=== PATIENT | female | born 1945 | race American Indian/Alaskan Native ===

== ENCOUNTER 2017-03-05 18:54 | Inpatient (IN) | payer MEDICARE ==
[2017-03-05] MEDS ORDERED: BENADRYL ONE (19:13)
[2017-03-05] MEDS ORDERED: BENADRYL IV ONE ×2 (19:17→20:25)
[2017-03-05] MEDS ORDERED: DECADRON IV ONE (20:19)
[2017-03-05] MEDS ORDERED: PEPCID IV ONE (20:25)
--- NOTE | 2017-03-05 20:30 | Emergency Department Report ---
HPI - General Chief Complaint: Allergic Reaction Time Seen by Provider: 03/05/17 20:17 - HPI HPI: 71-year-old female with a past medical history of end-stage disease on dialysis Saturday, Saturday, Fridays, PE, and seizures presents to the Hospital complaining of swelling to tongue after using Biotene mouthwash. Patent states symptoms started yesterday and then worsened this afternoon. Left-sided tongue was swollen than the right. Patient also has fullness and tenderness to the submental area and voice changes. Patient received Benadryl prior to my evaluation. Patient states symptoms are unchanged. ED Past Medical Hx - Past Medical History Previous Medical History?: Yes Hx Pulmonary Embolism: Yes Hx GERD: Yes Hx Renal Disease: Yes (ESRD/dialysis M,W,F) Hx Seizures: Yes Additional medical history: neuropathy - Surgical History Past Surgical History?: Yes Additional Surgical History: hip replacement. left Vas-Cath - Medications Home Medications: Home Medications Medication Instructions Recorded Confirmed Last Taken Type Apixaban [Eliquis] 2.5 mg PO DAILY 03/05/17 03/05/17 Unknown History Colchicine [Colcrys] 0.6 mg PO DAILY 03/05/17 03/05/17 Unknown History Fluticasone [Flonase] 1 spray NS QDAY 03/05/17 03/05/17 Unknown History Gabapentin [Neurontin] 300 mg PO BID 03/05/17 03/05/17 Unknown History Ipratropium/Albuter (Nf) 2 puff IH QID 03/05/17 03/05/17 Unknown History [Combivent (Nf)] Midodrine HCl 10 mg PO DAILY 03/05/17 03/05/17 Unknown History Pantoprazole [Protonix] 40 mg PO QDAY 03/05/17 03/05/17 Unknown History Sevelamer HCl [Renagel] 800 mg PO TIDWM 03/05/17 03/05/17 Unknown History levETIRAcetam [Keppra TAB] 250 mg PO 3XW 03/05/17 03/05/17 Unknown History levETIRAcetam [Keppra TAB] 500 mg PO 4XW 03/05/17 03/05/17 Unknown History traMADol [Ultram] 50 mg PO Q6HR PRN 03/05/17 03/05/17 Unknown History ED Review of Systems ROS: Stated complaint: SWOLLEN TONGUE Other details as noted in HPI Comment: All other systems reviewed and negative Other: Constitutional: No fevers chills or weight loss Eyes: No eye pain visual changes or discharge ENT: No ear pain or throat pain Neck: Denies pain Respiratory: Denies cough wheezing Cardiovascular: Denies chest pain, palpitations, syncope GI: Denies abdominal pain, nausea, vomiting, diarrhea : Denies dysuria Musculoskeletal: Denies back pain Skin: Denies rash, lesions, erythema Neurologic: Denies headache, numbness, weakness Psychiatric: Denies suicidal ideation, hallucinations Physical Exam - Physical Exam Vital Signs: Vital Signs 03/05/17 18:57 Pulse Rate 104 H Respiratory 18 Rate Blood Pressure 150/90 O2 Sat by Pulse 96 Oximetry Physical Exam: General: No limitations, patient is alert in no acute distress Head exam: Atraumatic, normocephalic Eyes exam: Normal appearance, pupils equal reactive to light, extraocular movements intact ENT: Moist mucous membrane, patient has swelling, left greater than the right. Able to partially visualize posterior pharynx with tongue depressor. Muffled voice Neck exam: Normal inspection, full range of motion, tenderness and swelling to submental area Respiratory exam: Clear to auscultation bilateral, no wheezes, rales, crackles Cardiovascular: Normal rate and rhythm, normal heart sounds Abdomen: Soft, nondistended, and nontender, with normal bowel sounds, no rebound, or guarding Extremity: Full range of motion normal inspection no deformity Back: Normal Inspection, full range of motion, no tenderness Neurologic: Alert, oriented x3, cranial nerves intact, no motor or sensory deficit Psychiatric: normal affect, normal mood Skin: Warm, dry, intact ED Course Vital Signs 03/05/17 18:57 Pulse Rate 104 H Respiratory 18 Rate Blood Pressure 150/90 O2 Sat by Pulse 96 Oximetry - Reevaluation(s) Reevaluation #1: 03/05/17 21:37 pt recieved Benadyrl, decadron, solumdrol, pepcid - Consultations Consultation #1: 03/05/17 21:36 Dr Bourgeois (anesthesiologist) in ED to assess patient for possible difficult intubation. It decided to observe patient a while longer for improvement. Intubation set up including bladder scope and cric tray at bedside ED Medical Decision Making - Lab Data Result diagrams: 03/05/17 20:53 03/05/17 20:53 Lab Results 03/05/17 03/05/17 Range/Units 20:53 20:53 WBC 10.0 (4.5-11.0) K/mm3 RBC 3.86 (3.65-5.03) M/mm3 Hgb 11.8 (10.1-14.3) gm/dl Hct 37.0 (30.3-42.9) % MCV 96 (79-97) fl MCH 31 (28-32) pg MCHC 32 (30-34) % RDW 14.6 (13.2-15.2) % Plt Count 254 (140-440) K/mm3 Lymph % (Auto) 19.8 (13.4-35.0) % [place] % (Auto) 7.7 H (0.0-7.3) % Eos % (Auto) 0.1 (0.0-4.3) % Baso % (Auto) 0.3 (0.0-1.8) % Lymph # 2.0 (1.2-5.4) K/mm3 [place] # 0.8 (0.0-0.8) K/mm3 Eos # 0.0 (0.0-0.4) K/mm3 Baso # 0.0 (0.0-0.1) K/mm3 Seg Neutrophils % 72.1 H (40.0-70.0) % Seg Neutrophils # 7.2 (1.8-7.7) K/mm3 Sodium 140 (137-145) mmol/L Potassium 5.1 H (3.6-5.0) mmol/L Chloride 96.3 L (98-107) mmol/L Carbon Dioxide 21 L (22-30) mmol/L Anion Gap 28 mmol/L BUN 45 H (7-17) mg/dL Creatinine 6.1 H (0.7-1.2) mg/dL Estimated GFR 8 ml/min BUN/Creatinine Ratio 7 % Glucose 167 H (65-100) mg/dL Calcium 8.6 (8.4-10.2) mg/dL - Medical Decision Making Plan to admit patient to the ICU for further observation. If symptoms worsen intubation and will be performed with the assistance of anesthesia - Differential Diagnosis angioedema, allergic reaction Critical Care Time: No Critical care attestation.: If time is entered above; I have spent that time in minutes in the direct care of this critically ill patient, excluding procedure time. ED Disposition Clinical Impression: Allergic reaction, Tongue swelling Disposition: OP ADMIT IP TO THIS HOSP Is pt being admited?: Yes Condition: Stable Time of Disposition: 21:39 (Dr Frye/hosp)
[2017-03-05 21:15] LABS: Basophils % (Auto) 0.3 % (0.0-1.8); Eosinophils % (Auto) 0.1 % (0.0-4.3); Hemoglobin 11.8 gm/dl (10.1-14.3); Mean Corpuscular HGB Conc 32 % (30-34); Mean Corpuscular Hemoglobin 31 pg (28-32); Mean Corpuscular Volume 96 fl (79-97); Platelet Count 254 K/mm3 (140-440); Red Blood Count 3.86 M/mm3 (3.65-5.03); Red Cell Distribution Width 14.6 % (13.2-15.2)
[2017-03-05 21:26] LABS: Calcium 8.6 mg/dL (8.4-10.2); Chloride 96.3 mmol/L (98-107); Potassium 5.1 mmol/L (3.6-5.0)
--- NOTE | 2017-03-05 21:56 | Progress Note ---
Subjective Date of service: 03/05/17 Interval history: Ms Elias is a 71 year old who has had neck swelling and weak voice for over 24 hours. She reports some worsening this afternoon. She has a history of ESRD and is dialyzed MWF. Her potassium is 5.1. Her home medication list is presently unknown. She has received benadryl and steroids since admission. On physical exam the patient is awake and alert. She is in mild distress but is able to talk legibly. There is moderate swelling/fullness at the base of the neck and tenderness to palpation. Her BP is 150/90, R 18, P104 and SaO2 96%. Do not feel that patient is de-compensating at present and she deserves a little additional time for steroids to work. If this changes will reconsider intubation. Objective - Constitutional Vitals: Vital Signs - 12hr 03/05/17 18:57 Pulse Rate 104 H Respiratory 18 Rate Blood Pressure 150/90 O2 Sat by Pulse 96 Oximetry - Labs CBC & Chem 7: 03/05/17 20:53 03/05/17 20:53 Labs: Abnormal lab results 03/05/17 03/05/17 Range/Units 20:53 20:53 [place] % (Auto) 7.7 H (0.0-7.3) % Seg Neutrophils % 72.1 H (40.0-70.0) % Potassium 5.1 H (3.6-5.0) mmol/L Chloride 96.3 L (98-107) mmol/L Carbon Dioxide 21 L (22-30) mmol/L BUN 45 H (7-17) mg/dL Creatinine 6.1 H (0.7-1.2) mg/dL Glucose 167 H (65-100) mg/dL
[2017-03-05] MEDS ORDERED: APRESOLINE IV PRN (22:40)
--- NOTE | 2017-03-05 22:42 | History and Physical Report ---
History of Present Illness Date of examination: 03/05/17 History of present illness: 71-year-old lady with a history of pulmonary emboli, GERD, end-stage renal disease on dialysis, seizure, diabetes was brought to the emergency room because she developed swelling in her tongue and shortness of breath. Daughter at bedside state that yesterday she complained of pain on the left side of her neck, patient is unable to elaborate. No new medicine, food Review Of Systems: Constitutional: no weight loss Ears, eyes, nose, mouth and throat: no nasal congestion, no nasal discharge, no sinus pressure, blurry vision, diplopia Neck: No neck pain or rigidity. Cardiovascular: No chest pain, palpitations Respiratory: No shortness of breath, cough Gastrointestinal: No abdominal pain, hematochezia Genitourinary : no dysuria, frequency , hematuria Musculoskeletal: no muscle ache Integumentary: no rash, no pruritis Neurological: no parathesias, focal weakness Endocrine: no cold or heat intolerance, no polyuria or polydipsia Hematologic/Lymphatic: no easy bruising, no easy bleeding, no gland swelling Allergic/Immunologic: no urticaria, no angioedema. PAST MEDICAL HISTORY:pulmonary emboli, GERD, end-stage renal disease on dialysis , seizure, diabetes PAST SURGICAL HISTORY: AV fistula, hip replacement, bilateral hernia, FAMILY HISTORY: Hypertension SOCIAL HISTORY: Denies alcohol, tobacco, drugs Medications and Allergies Allergies Allergy/AdvReac Type Severity Reaction Status Date / Time sulfacetamide Allergy Anaphylaxis Verified 03/06/17 00:22 [From Sulfamide] Home Medications Medication Instructions Recorded Confirmed Last Taken Type Apixaban [Eliquis] 2.5 mg PO DAILY 03/05/17 03/05/17 Unknown History Colchicine [Colcrys] 0.6 mg PO DAILY 03/05/17 03/05/17 Unknown History Fluticasone [Flonase] 1 spray NS QDAY 03/05/17 03/05/17 Unknown History Gabapentin [Neurontin] 300 mg PO BID 03/05/17 03/05/17 Unknown History Ipratropium/Albuter (Nf) 2 puff IH QID 03/05/17 03/05/17 Unknown History [Combivent Inhaler] Midodrine HCl 10 mg PO DAILY 03/05/17 03/05/17 Unknown History Pantoprazole [Protonix TAB] 40 mg PO QDAY 03/05/17 03/05/17 Unknown History Sevelamer HCl [Renagel] 800 mg PO TIDWM 03/05/17 03/05/17 Unknown History levETIRAcetam [Keppra TAB] 250 mg PO 3XW 03/05/17 03/05/17 Unknown History levETIRAcetam [Keppra TAB] 500 mg PO 4XW 03/05/17 03/05/17 Unknown History traMADol [Ultram 50 MG tab] 50 mg PO Q6HR PRN 03/05/17 03/05/17 Unknown History Famotidine [Pepcid] 20 mg PO DAILY tablet 03/08/17 Unknown Rx Famotidine [Pepcid] 20 mg PO DAILY 30 Days tablet 03/08/17 Unknown Rx Prednisone [predniSONE 10 mg 10 mg PO .TAPER #1 tab.ds.pk 03/08/17 Unknown Rx (6-Day Pack, 21 Tabs)] levETIRAcetam [Keppra TAB] 500 mg PO Sa tablet 03/08/17 Unknown Rx levETIRAcetam [Keppra TAB] 500 mg PO [place] tablet 03/08/17 Unknown Rx oxyCODONE [Roxicodone TAB] 10 mg PO Q6H PRN #14 tablet 03/08/17 Unknown Rx Active Meds: Active Medications Hydralazine HCl (Apresoline) 5 mg IV Q6HR PRN PRN Reason: Hypertension Exam - Physical Exam Narrative exam: Gen. appearance: Patient lying in bed in no acute distress, able to speak in full sentences HEENT: Normocephalic/atraumatic, pupils equal round reactive to light, extra occular movement intact, no scleral icterus, no JVD or thyromegaly or nodule, neck is supple, mucous membrane moist, no erythema or exudate Heart: S1-S2, regular rate and rhythm Lungs: Clear to auscultation bilateral breathing comfortable Abdomen: Positive bowel sounds, nontender, nondistended, no organomegaly Extremities: No edema, cyanosis, clubbing Neuro:: Oriented 3 , cranial nerves II-12 intact, speech, motor intact Skin: No rash, nodules, warm dry - Constitutional Vitals: Temp Pulse Resp BP Pulse Ox 98.9 F 104 H 18 150/90 96 03/05/17 21:58 03/05/17 18:57 03/05/17 18:57 03/05/17 18:57 03/05/17 18:57 Results - Labs CBC & Chem 7: 03/07/17 05:17 03/08/17 04:35 Labs: Abnormal lab results 03/05/17 03/05/17 Range/Units 20:53 20:53 [place] % (Auto) 7.7 H (0.0-7.3) % Seg Neutrophils % 72.1 H (40.0-70.0) % Potassium 5.1 H (3.6-5.0) mmol/L Chloride 96.3 L (98-107) mmol/L Carbon Dioxide 21 L (22-30) mmol/L BUN 45 H (7-17) mg/dL Creatinine 6.1 H (0.7-1.2) mg/dL Glucose 167 H (65-100) mg/dL Assessment and Plan Assessment Angioedema, unclear etiology left neck pain End-stage renal disease needing dialysis Hypertension Diabetes type 2 Pulmonary emboli Seizure Plan Admit to medicine Continue high-dose steroids, Pepcid, Benadryl Admitting CAT scan of the neck Consult renal for dialysis Check fingersticks and initiate insulin sliding scale IV hydralazine for blood pressure control DVT prophylaxis
--- NOTE | 2017-03-05 23:41 | Cat Scan Report ---
FINAL REPORT PROCEDURE: CT NECK WO CON TECHNIQUE: Computerized tomography of the soft tissue neck was performed without contrast material. This study is performed without intravascular contrast material and its sensitivity for pathology, including neoplasms, inflammation, abscess, free fluid, thrombosis, and arterial dissection, is reduced compared with a contrast enhanced study. HISTORY: left neck pain, angioedema COMPARISON: No prior studies are available for comparison. FINDINGS: The tongue appear swollen with mild narrowing of the oropharynx. Uvula is of normal thickness. Mild degree soft tissue fullness is noted in the left submandibular region., Nasal cavity and bilateral paranasal sinuses are unremarkable. Epiglottis is of normal thickness. Laryngeal structures are unremarkable. Atelectatic changes are noted in the visualized superior segment left lower lobe. Bilateral parotid glands demonstrate normal size and density. There is no lymphadenopathy. Bilateral orbits are unremarkable. There is increased density of the bony structures. IMPRESSION: Tongue appears swollen. Soft tissue fullness in the left submandibular region may represent an underlying inflammatory process. A post contrast study is recommended for further evaluation. Increased density of the bony skeleton most likely represents a etiologies such as renal osteodystrophy.
[2017-03-06] MEDS ORDERED: ZOFRAN IV PRN (00:23)
[2017-03-06] MEDS ORDERED: ZOSYN/NS 2.25 GM/50ML 2.25 GM/50 ML BAG IV ONE (01:30)
--- NOTE | 2017-03-06 08:47 | Progress Note ---
<ARSEN SAENZ - Last Filed: 03/06/17 14:51> Assessment and Plan Assessment and plan: Patient is a 71-year-old with past medical history of pulmonary emboli, GERD, end-stage renal disease on dialysis, seizure, diabetes was brought to the emergency room because she developed swelling in her tongue and shortness of breath. Angioedema, Etiology unknown Ct of the neck showed swollen tongue Oxygen when necessary; protect airway Continue steroid and Benadryl We will obtain CT of the neck with contrast if its okay with nephrology. Left neck pain Secondary to angioedema End-stage renal disease needing dialysis Nephrology consulted Hyperkalemia Patient will have dialysis that will correct it. Hypertension Continue on home antihypertensive medication Closer to monitor blood pressure Diabetes mellitus Accu-Chek before meals and at bedtime Sliding scale insulin/NovoLog ADA consistent carbohydrate diet Hx Pulmonary emboli Continue on Eliquis Seizure Resume anticonvulsant DVT prophylaxis Heparin History Interval history: Patient complains of neck pain. She denies shortness of breath. Labs and nursing notes reviewed. Hospitalist Physical - Constitutional Vitals: Temp Pulse Resp BP Pulse Ox 98.6 F 95 H 22 179/79 94 03/06/17 04:54 03/06/17 04:54 03/06/17 04:54 03/06/17 04:54 03/06/17 04:54 General appearance: Present: no acute distress - EENT Eyes: Present: PERRL ENT: hearing intact - Neck Neck: Present: supple - Respiratory Respiratory effort: normal Respiratory: bilateral: CTA - Cardiovascular Rhythm: regular Heart Sounds: Present: S1 & S2 - Abdominal General gastrointestinal: soft, non-tender - Integumentary Integumentary: Present: clear, warm, dry - Psychiatric Psychiatric: appropriate mood/affect - Neurologic Neurologic: moves all extremities - Allied Health Allied health notes reviewed: nursing Results - Labs CBC & Chem 7: 03/05/17 20:53 03/05/17 20:53 Labs: Laboratory Last Values WBC 10.0 K/mm3 (4.5-11.0) 03/05/17 20:53 RBC 3.86 M/mm3 (3.65-5.03) 03/05/17 20:53 Hgb 11.8 gm/dl (10.1-14.3) 03/05/17 20:53 Hct 37.0 % (30.3-42.9) 03/05/17 20:53 MCV 96 fl (79-97) 03/05/17 20:53 MCH 31 pg (28-32) 03/05/17 20:53 MCHC 32 % (30-34) 03/05/17 20:53 RDW 14.6 % (13.2-15.2) 03/05/17 20:53 Plt Count 254 K/mm3 (140-440) 03/05/17 20:53 Lymph % (Auto) 19.8 % (13.4-35.0) 03/05/17 20:53 [place] % (Auto) 7.7 % (0.0-7.3) H 03/05/17 20:53 Eos % (Auto) 0.1 % (0.0-4.3) 03/05/17 20:53 Baso % (Auto) 0.3 % (0.0-1.8) 03/05/17 20:53 Lymph # 2.0 K/mm3 (1.2-5.4) 03/05/17 20:53 [place] # 0.8 K/mm3 (0.0-0.8) 03/05/17 20:53 Eos # 0.0 K/mm3 (0.0-0.4) 03/05/17 20:53 Baso # 0.0 K/mm3 (0.0-0.1) 03/05/17 20:53 Seg Neutrophils % 72.1 % (40.0-70.0) H 03/05/17 20:53 Seg Neutrophils # 7.2 K/mm3 (1.8-7.7) 03/05/17 20:53 Sodium 140 mmol/L (137-145) 03/05/17 20:53 Potassium 5.1 mmol/L (3.6-5.0) H 03/05/17 20:53 Chloride 96.3 mmol/L (98-107) L 03/05/17 20:53 Carbon Dioxide 21 mmol/L (22-30) L 03/05/17 20:53 Anion Gap 28 mmol/L 03/05/17 20:53 BUN 45 mg/dL (7-17) H 03/05/17 20:53 Creatinine 6.1 mg/dL (0.7-1.2) H 03/05/17 20:53 Estimated GFR 8 ml/min 03/05/17 20:53 BUN/Creatinine Ratio 7 % 03/05/17 20:53 Glucose 167 mg/dL (65-100) H 03/05/17 20:53 Calcium 8.6 mg/dL (8.4-10.2) 03/05/17 20:53 <REGAN CARRION M - Last Filed: 03/06/17 16:17> Assessment and Plan Assessment and plan: I saw and evaluated the patient. I agree with the findings and the plan of care as documented in the Nurse Practitioner's progress note. Hospitalist Physical - Constitutional Vitals: Temp Pulse Resp BP Pulse Ox 98.5 F 92 H 20 171/78 95 03/06/17 09:25 03/06/17 11:45 03/06/17 09:25 03/06/17 09:25 03/06/17 09:50 Results - Labs CBC & Chem 7: 03/05/17 20:53 03/05/17 20:53 Labs: Laboratory Last Values WBC 10.0 K/mm3 (4.5-11.0) 03/05/17 20:53 RBC 3.86 M/mm3 (3.65-5.03) 03/05/17 20:53 Hgb 11.8 gm/dl (10.1-14.3) 03/05/17 20:53 Hct 37.0 % (30.3-42.9) 03/05/17 20:53 MCV 96 fl (79-97) 03/05/17 20:53 MCH 31 pg (28-32) 03/05/17 20:53 MCHC 32 % (30-34) 03/05/17 20:53 RDW 14.6 % (13.2-15.2) 03/05/17 20:53 Plt Count 254 K/mm3 (140-440) 03/05/17 20:53 Lymph % (Auto) 19.8 % (13.4-35.0) 03/05/17 20:53 [place] % (Auto) 7.7 % (0.0-7.3) H 03/05/17 20:53 Eos % (Auto) 0.1 % (0.0-4.3) 03/05/17 20:53 Baso % (Auto) 0.3 % (0.0-1.8) 03/05/17 20:53 Lymph # 2.0 K/mm3 (1.2-5.4) 03/05/17 20:53 [place] # 0.8 K/mm3 (0.0-0.8) 03/05/17 20:53 Eos # 0.0 K/mm3 (0.0-0.4) 03/05/17 20:53 Baso # 0.0 K/mm3 (0.0-0.1) 03/05/17 20:53 Seg Neutrophils % 72.1 % (40.0-70.0) H 03/05/17 20:53 Seg Neutrophils # 7.2 K/mm3 (1.8-7.7) 03/05/17 20:53 Sodium 140 mmol/L (137-145) 03/05/17 20:53 Potassium 5.1 mmol/L (3.6-5.0) H 03/05/17 20:53 Chloride 96.3 mmol/L (98-107) L 03/05/17 20:53 Carbon Dioxide 21 mmol/L (22-30) L 03/05/17 20:53 Anion Gap 28 mmol/L 03/05/17 20:53 BUN 45 mg/dL (7-17) H 03/05/17 20:53 Creatinine 6.1 mg/dL (0.7-1.2) H 03/05/17 20:53 Estimated GFR 8 ml/min 03/05/17 20:53 BUN/Creatinine Ratio 7 % 03/05/17 20:53 Glucose 167 mg/dL (65-100) H 03/05/17 20:53 Calcium 8.6 mg/dL (8.4-10.2) 03/05/17 20:53 TSH 0.432 mlU/mL (0.270-4.200) 03/06/17 09:47
[2017-03-06] MEDS: COLCRYS PO SCH (09:38)
[2017-03-06] MEDS: KEPPRA PO SCH (09:38)
[2017-03-06] MEDS: ELIQUIS PO SCH (09:39)
[2017-03-06] MEDS: PEPCID IV SCH (09:39)
[2017-03-06] MEDS: TYLENOL PO PRN (09:46)
[2017-03-06] MEDS ORDERED: PROAMATINE PO SCH (10:00)
[2017-03-06] MEDS ORDERED: LOVENOX SUB-Q SCH (10:00)
[2017-03-06] MEDS: ROXICODONE PO PRN (16:32)
[2017-03-07 06:13] LABS: BUN/Creatinine Ratio 11; Blood Urea Nitrogen 86 mg/dL (7-17); Calcium 7.6 mg/dL (8.4-10.2); Carbon Dioxide 18 mmol/L (22-30); Glucose 333 mg/dL (65-100); Sodium 134 mmol/L (137-145)
[2017-03-07 06:18] LABS: Anion Gap 31 mmol/L; Potassium TNR mmol/L (3.6-5.0)
[2017-03-07] MEDS: ROXICODONE PO PRN ×3 (06:30→23:42)
[2017-03-07 06:32] LABS: Hematocrit 33.3 % (30.3-42.9); Hemoglobin 10.9 gm/dl (10.1-14.3); Mean Corpuscular HGB Conc 33 % (30-34); Mean Corpuscular Hemoglobin 32 pg (28-32); Mean Corpuscular Volume 97 fl (79-97); Red Blood Count 3.43 M/mm3 (3.65-5.03); Red Cell Distribution Width 14.7 % (13.2-15.2); White Blood Count 10.5 K/mm3 (4.5-11.0)
[2017-03-07 06:34] LABS: Platelet Count 192 K/mm3 (140-440)
[2017-03-07 06:37] LABS: Eosinophils % (Auto) 0.1 % (0.0-4.3)
[2017-03-07 06:38] LABS: Basophils % (Auto) 0.9 % (0.0-1.8); Diff Status Complete
[2017-03-07] MEDS: BENADRYL IV PRN ×2 (08:46→16:26)
--- NOTE | 2017-03-07 08:52 | Progress Note ---
<ARSEN SAENZ - Last Filed: 03/07/17 14:55> Assessment and Plan Assessment and plan: Patient is a 71-year-old with past medical history of pulmonary emboli, GERD, end-stage renal disease on dialysis, seizure, diabetes was brought to the emergency room because she developed swelling in her tongue and shortness of breath. Sialolithiasis submandibular CT of the neck with contrast showed sialolithiasis submandibular Surgical consult Angioedema, Secondary to sialolithiasis submandibular CT of the neck with contrast showed sialolithiasis submandibular Ct of the neck showed swollen tongue Oxygen when necessary; protect airway Continue steroid and Benadryl Left neck pain Secondary to sialolithiasis submandibular End-stage renal disease needing dialysis Nephrology consulted Hyperkalemia Patient will have dialysis that will correct it. Hypertension Continue on home antihypertensive medication Closer to monitor blood pressure Diabetes mellitus Accu-Chek before meals and at bedtime Sliding scale insulin/NovoLog ADA consistent carbohydrate diet Hx Pulmonary emboli Continue on Eliquis Seizure Resume anticonvulsant DVT prophylaxis Heparin History Interval history: Patient complains neck pain. Labs and nursing notes reviewed. Hospitalist Physical - Constitutional Vitals: Temp Pulse Resp BP Pulse Ox 98.8 F 86 20 151/68 98 03/07/17 05:23 03/07/17 08:31 03/07/17 05:23 03/07/17 05:23 03/07/17 05:23 General appearance: Present: no acute distress - EENT Eyes: Present: PERRL ENT: hearing intact - Neck Neck: Present: supple - Respiratory Respiratory effort: normal Respiratory: bilateral: CTA - Cardiovascular Rhythm: regular Heart Sounds: Present: S1 & S2 - Abdominal General gastrointestinal: soft, non-tender - Integumentary Integumentary: Present: clear, warm, dry - Psychiatric Psychiatric: appropriate mood/affect - Allied Health Allied health notes reviewed: nursing Results - Labs CBC & Chem 7: 03/07/17 05:17 03/07/17 05:17 Labs: Laboratory Last Values WBC 10.5 K/mm3 (4.5-11.0) 03/07/17 05:17 RBC 3.43 M/mm3 (3.65-5.03) L 03/07/17 05:17 Hgb 10.9 gm/dl (10.1-14.3) 03/07/17 05:17 Hct 33.3 % (30.3-42.9) 03/07/17 05:17 MCV 97 fl (79-97) 03/07/17 05:17 MCH 32 pg (28-32) 03/07/17 05:17 MCHC 33 % (30-34) 03/07/17 05:17 RDW 14.7 % (13.2-15.2) 03/07/17 05:17 Plt Count 192 K/mm3 (140-440) 03/07/17 05:17 Lymph % (Auto) 9.7 % (13.4-35.0) L 03/07/17 05:17 [place] % (Auto) 3.0 % (0.0-7.3) 03/07/17 05:17 Eos % (Auto) 0.1 % (0.0-4.3) 03/07/17 05:17 Baso % (Auto) 0.9 % (0.0-1.8) 03/07/17 05:17 Lymph # 1.0 K/mm3 (1.2-5.4) L 03/07/17 05:17 [place] # 0.3 K/mm3 (0.0-0.8) 03/07/17 05:17 Eos # 0.0 K/mm3 (0.0-0.4) 03/07/17 05:17 Baso # 0.1 K/mm3 (0.0-0.1) 03/07/17 05:17 Add Manual Diff Complete 03/07/17 05:17 Seg Neutrophils % 86.3 % (40.0-70.0) H 03/07/17 05:17 Seg Neutrophils # 9.0 K/mm3 (1.8-7.7) H 03/07/17 05:17 Sodium 134 mmol/L (137-145) L 03/07/17 05:17 Potassium TNR 03/07/17 05:17 Chloride 93.0 mmol/L (98-107) L 03/07/17 05:17 Carbon Dioxide 18 mmol/L (22-30) L 03/07/17 05:17 Anion Gap 31 mmol/L 03/07/17 05:17 BUN 86 mg/dL (7-17) H 03/07/17 05:17 Creatinine 8.0 mg/dL (0.7-1.2) H 03/07/17 05:17 Estimated GFR 6 ml/min 03/07/17 05:17 BUN/Creatinine Ratio 11 % 03/07/17 05:17 Glucose 333 mg/dL (65-100) H 03/07/17 05:17 Calcium 7.6 mg/dL (8.4-10.2) L 03/07/17 05:17 TSH 0.432 mlU/mL (0.270-4.200) 03/06/17 09:47 <REGAN CARRION M - Last Filed: 03/07/17 17:29> Assessment and Plan Assessment and plan: I saw and evaluated the patient. I agree with the findings and the plan of care as documented in the Nurse Practitioner's progress note, with the following corrections and additions. patient is not septic and after surgery evaluation patient can be seen by ENT as an O/P. Hospitalist Physical - Constitutional Vitals: Temp Pulse Resp BP Pulse Ox 98.3 F 88 16 165/84 98 03/07/17 15:26 03/07/17 15:26 03/07/17 15:26 03/07/17 15:26 03/07/17 09:11 Results - Labs CBC & Chem 7: 03/07/17 05:17 03/07/17 05:17 Labs: Laboratory Last Values WBC 10.5 K/mm3 (4.5-11.0) 03/07/17 05:17 RBC 3.43 M/mm3 (3.65-5.03) L 03/07/17 05:17 Hgb 10.9 gm/dl (10.1-14.3) 03/07/17 05:17 Hct 33.3 % (30.3-42.9) 03/07/17 05:17 MCV 97 fl (79-97) 03/07/17 05:17 MCH 32 pg (28-32) 03/07/17 05:17 MCHC 33 % (30-34) 03/07/17 05:17 RDW 14.7 % (13.2-15.2) 03/07/17 05:17 Plt Count 192 K/mm3 (140-440) 03/07/17 05:17 Lymph % (Auto) 9.7 % (13.4-35.0) L 03/07/17 05:17 [place] % (Auto) 3.0 % (0.0-7.3) 03/07/17 05:17 Eos % (Auto) 0.1 % (0.0-4.3) 03/07/17 05:17 Baso % (Auto) 0.9 % (0.0-1.8) 03/07/17 05:17 Lymph # 1.0 K/mm3 (1.2-5.4) L 03/07/17 05:17 [place] # 0.3 K/mm3 (0.0-0.8) 03/07/17 05:17 Eos # 0.0 K/mm3 (0.0-0.4) 03/07/17 05:17 Baso # 0.1 K/mm3 (0.0-0.1) 03/07/17 05:17 Add Manual Diff Complete 03/07/17 05:17 Seg Neutrophils % 86.3 % (40.0-70.0) H 03/07/17 05:17 Seg Neutrophils # 9.0 K/mm3 (1.8-7.7) H 03/07/17 05:17 Sodium 134 mmol/L (137-145) L 03/07/17 05:17 Potassium TNR 03/07/17 05:17 Chloride 93.0 mmol/L (98-107) L 03/07/17 05:17 Carbon Dioxide 18 mmol/L (22-30) L 03/07/17 05:17 Anion Gap 31 mmol/L 03/07/17 05:17 BUN 86 mg/dL (7-17) H 03/07/17 05:17 Creatinine 8.0 mg/dL (0.7-1.2) H 03/07/17 05:17 Estimated GFR 6 ml/min 03/07/17 05:17 BUN/Creatinine Ratio 11 % 03/07/17 05:17 Glucose 333 mg/dL (65-100) H 03/07/17 05:17 Calcium 7.6 mg/dL (8.4-10.2) L 03/07/17 05:17 TSH 0.432 mlU/mL (0.270-4.200) 03/06/17 09:47
[2017-03-07] MEDS: COLCRYS PO SCH (09:03)
[2017-03-07] MEDS: PEPCID PO SCH (09:03)
[2017-03-07] MEDS: ELIQUIS PO SCH (09:03)
[2017-03-07] MEDS: KEPPRA PO SCH (09:03)
[2017-03-07] MEDS: PEPCID IV SCH (09:04)
--- NOTE | 2017-03-07 09:10 | Consultation ---
History of Present Illness - Reason for Consult Consult date: 03/07/17 end stage renal disease, hyperkalemia - History of Present Illness The patient is a 71-year-old AAF with history significant for Pulmonary emboli, GERD, ESRD on hemodialysis, Seizure DO, Type 2 diabetes, Gout who was brought to the emergency room for further evaluation of swelling of her tongue and shortness of breath. Patient is a poor historian and unable to provide good history. Imaging studies showed swollen tongue and soft tissue fullness of the submandibular region. Currently her symptoms are better. She gets hemodialysis at [facility] on MWFs and followed by . She was last dialyzed on 03/04/2017. K was 5.1 on admission. Plan to do hemodialysis today. Past History Past Medical History: anemia, diabetes, dialysis, ESRD, hypertension Medications and Allergies Allergies Allergy/AdvReac Type Severity Reaction Status Date / Time sulfacetamide Allergy Anaphylaxis Verified 03/06/17 00:22 [From Sulfamide] Home Medications Medication Instructions Recorded Confirmed Last Taken Type Apixaban [Eliquis] 2.5 mg PO DAILY 03/05/17 03/05/17 Unknown History Colchicine [Colcrys] 0.6 mg PO DAILY 03/05/17 03/05/17 Unknown History Fluticasone [Flonase] 1 spray NS QDAY 03/05/17 03/05/17 Unknown History Gabapentin [Neurontin] 300 mg PO BID 03/05/17 03/05/17 Unknown History Ipratropium/Albuter (Nf) 2 puff IH QID 03/05/17 03/05/17 Unknown History [Combivent (Nf)] Midodrine HCl 10 mg PO DAILY 03/05/17 03/05/17 Unknown History Pantoprazole [Protonix] 40 mg PO QDAY 03/05/17 03/05/17 Unknown History Sevelamer HCl [Renagel] 800 mg PO TIDWM 03/05/17 03/05/17 Unknown History levETIRAcetam [Keppra TAB] 250 mg PO 3XW 03/05/17 03/05/17 Unknown History levETIRAcetam [Keppra TAB] 500 mg PO 4XW 03/05/17 03/05/17 Unknown History traMADol [Ultram] 50 mg PO Q6HR PRN 03/05/17 03/05/17 Unknown History Active Meds: Active Medications Acetaminophen (Tylenol) 650 mg PO Q4H PRN PRN Reason: Pain MILD(1-3)/Fever >100.5/SU Last Admin: 03/06/17 09:46 Dose: 650 mg Apixaban (Eliquis) 2.5 mg PO DAILY [facility] PRN Reason: Protocol Last Admin: 03/07/17 09:03 Dose: 2.5 mg Colchicine (Colcrys) 0.6 mg PO DAILY [facility] Last Admin: 03/07/17 09:03 Dose: 0.6 mg Diphenhydramine HCl (Benadryl) 25 mg IV Q6H PRN PRN Reason: Itching Last Admin: 03/07/17 08:46 Dose: 25 mg Famotidine (Pepcid) 20 mg IV QAM [facility] Last Admin: 03/07/17 09:04 Dose: 20 mg Hydralazine HCl (Apresoline) 5 mg IV Q6H PRN PRN Reason: Hypertension Levetiracetam (Keppra) 500 mg PO TuTh [facility] Last Admin: 03/07/17 09:03 Dose: 500 mg Levetiracetam (Keppra) 250 mg PO MoWeFr [facility] Last Admin: 03/06/17 09:38 Dose: 250 mg Levetiracetam (Keppra) 500 mg PO [place]iz[place] RITESH Levetiracetam (Keppra) 500 mg PO Sa [facility] Methylprednisolone Sodium Succinate (Solu-Medrol) 125 mg IV Q6HR [facility] Last Admin: 03/07/17 05:15 Dose: 125 mg Ondansetron HCl (Zofran) 4 mg IV Q8H PRN PRN Reason: N/V unrelieved by Regjusten Last Admin: 03/06/17 10:08 Dose: 4 mg Oxycodone HCl (Roxicodone) 5 mg PO Q6H PRN PRN Reason: Pain, Moderate (4-6) Last Admin: 03/07/17 06:30 Dose: 5 mg Review of Systems ROS unobtainable: due to mental status Exam - Vital Signs Vital signs: Vital Signs Pulse Resp BP Pulse Ox 104 H 18 150/90 96 03/05/17 18:57 03/05/17 18:57 03/05/17 18:57 03/05/17 18:57 - General Appearance General appearance: well-developed, well-nourished, appears stated age, other ( no distress, left IJ tunnel catheter) EENT: ATNC, PERRL, hearing intact, vision intact Neck: Present: neck supple, trachea midline Respiratory: Clear to Ascultation Heart: regular, S1S2, no murmurs Gastrointestinal: Present: normoactive bowel sounds. Absent: tenderness, distended Integumentary: no rash, warm and dry Neurologic: no asterixis, disoriented, other (able to move extremities) Musculoskeletal: Present: other (no edema) Psychiatric: mood/affect appropriate, cooperative Results - Lab Results 03/07/17 05:17 03/07/17 05:17 Most recent lab results Calcium 7.6 mg/dL (8.4-10.2) L 03/07/17 05:17 Assessment and Plan 1. Hyperkalemia: Hemodialysis today. 2. ESRD: Continue hemodialysis three times a week. 3. Anemia: Monitor and Epogen if needed. 4. Tongue swelling: ?Angioedema.
[2017-03-07] MEDS ORDERED: NACL 0.9% 100 ML IV PRN ×2 (09:23→12:34)
--- NOTE | 2017-03-07 11:55 | Cat Scan Report ---
CT NECK WITH CONTRAST: HISTORY: Neck pain, tongue swelling. TECHNIQUE: Helical CT following IV contrast. Sagittal and coronal reformatted images. FINDINGS: Compared to the noncontrast CT neck performed 03/05/17. There may be mild swelling of the tongue but no evidence for mass, inflammation or abnormal enhancement. The vallecula, epiglottis, laryngeal vestibule and puriform sinuses are within normal limits. Visualized nasopharyngeal structures and sinuses are unremarkable. The bony structures are intact although mildly sclerotic suggesting renal osteodystrophy. No fracture or bony destruction. Poor dentition is noted. There is a large ovoid well-defined calcification at the base of the tongue on the left side measuring 10 x 12 x 16 mm. This appears to be within a mildly dilated left submandibular duct. The salivary glands are symmetric and within normal limits otherwise. The vascular structures are patent. The thyroid gland is normal size and contains a few small hypodense nodules measuring less than 5 mm. IMPRESSION: Sialolithiasis. There is a large stone obstructing the left submandibular duct.
[2017-03-07] MEDS ORDERED: HEPARIN IV PRN (12:34)
[2017-03-08 05:51] LABS: Calcium 7.9 mg/dL (8.4-10.2); Chloride 94.5 mmol/L (98-107); Potassium 5.4 mmol/L (3.6-5.0)
[2017-03-08] MEDS ORDERED: NACL 0.9% 100 ML IV PRN (08:00)
--- NOTE | 2017-03-08 08:00 | Progress Note ---
Assessment and Plan 1. Hyperkalemia: Patient was last dialyzed yesterday. Hemodialysis today. 2. ESRD: Continue hemodialysis three times a week. 3. Anemia: Monitor and Epogen if needed. 4. Tongue swelling. Subjective Date of service: 03/08/17 Interval history: Patient was seen and examined at the bedside. Objective - Vital Signs Vital signs: Vital Signs - 12hr 03/07/17 03/07/17 03/08/17 22:00 23:40 03:46 Temperature 98.8 F 97.8 F Pulse Rate 82 77 74 Respiratory 18 18 Rate Blood Pressure 164/72 148/65 O2 Sat by Pulse 98 93 98 Oximetry - General Appearance General appearance: well-developed, well-nourished, appears stated age, other ( no distress, left IJ tunnel catheter) EENT: ATNC, PERRL, hearing intact Neck: supple Respiratory: Present: Clear to Ascultation Cardiology: regular, S1S2, no murmurs Gastrointestinal: normoactive bowel sounds, no tenderness, no distended Integumentary: no rash, warm and dry Neurologic: no focal deficit, no asterixis, confused Musculoskeletal: other (no edema) Psychiatric: mood/affect appropriate, cooperative - Lab 03/07/17 05:17 03/08/17 04:35 Most recent lab results Calcium 7.9 mg/dL (8.4-10.2) L 03/08/17 04:35
--- NOTE | 2017-03-08 08:51 | Discharge Summary ---
<DANYARSEN - Last Filed: 03/08/17 13:12> Providers - Providers Date of Admission: 03/05/17 22:41 Date of discharge: 03/08/17 Attending physician: REGAN CARRION MD 03/07/17 07:22 Consult to Physician [CONS] Routine Consulting Provider: JOSUÉ CROOK Reason For Exam: ESRD on HD Place consult to:: Dr. Crook Notified:: Chilo BELL Comment:: Dr. Crook is aware of consultation 03/07/17 15:21 Consult to Physician [CONS] Routine Consulting Provider: MAL CASTILLO Reason For Exam: submandibular sialolithiasis Place consult to:: Dr. Castillo Notified:: Chilo BELL Phone number called:: Was contact made?: Yes If yes, spoke with:: Kimberly-office Time called:: 15:40 Primary care physician: LIZBET ARIAS Hospitalization Reason for admission: angioedema Condition: Good Hospital course: Patient is a 71-year-old with past medical history of pulmonary emboli, GERD, end-stage renal disease on dialysis, seizure, diabetes was brought to the emergency room because she developed swelling in her tongue and shortness of breath. Patient was diagnosed with Angioedema, Left neck pain, End-stage renal disease needing dialysis, Hypertension, Diabetes mellitus,Hx Pulmonary emboli,Seizure and Hyperkalemia. She received emergent dialysis, during which excess fluid was removed, and her hyperkalemia corrected with HD, she was restarted on the rest of her meds. CT of the neck with contrast showed sialolithiasis submandibular. General surgery consulted recommended ENT evaluation as outpatient. She was treated with IV steroids for swollen tongue. She is being with oral steroid taper upon discharge. Patient clinically improved and stable for discharge. Patient was advised to follow up with ENT as outpatient. Discharge Diagnosed Angioedema, Left neck pain End-stage renal disease needing dialysis Hyperkalemia Hypertension Diabetes mellitus Hx Pulmonary emboli Seizure Disposition: [id number] Time spent for discharge: 35 minutes Core Measure Documentation - Palliative Care Palliative Care/ Comfort Measures: Not Applicable - Core Measures Any of the following diagnoses?: none Exam - Constitutional Vitals: Temp Pulse Resp BP Pulse Ox 97.8 F 74 18 148/65 95 03/08/17 03:46 03/08/17 03:46 03/08/17 03:46 03/08/17 03:46 03/08/17 08:14 General appearance: Present: no acute distress - EENT Eyes: Present: PERRL ENT: hearing intact - Neck Neck: Present: supple - Respiratory Respiratory effort: normal Respiratory: bilateral: CTA - Cardiovascular Rhythm: regular Heart Sounds: Present: S1 & S2 - Abdominal General gastrointestinal: Present: soft, non-tender Female genitourinary: Present: deferred - Rectal Rectal Exam: deferred - Integumentary Integumentary: Present: clear, warm, dry - Musculoskeletal Musculoskeletal: strength equal bilaterally - Psychiatric Psychiatric: appropriate mood/affect - Neurologic Neurologic: moves all extremities - Allied Health Allied health notes reviewed: nursing Plan Diet: low fat, low cholesterol, low salt Follow up with: LIZBET ARIAS MD [Primary Care Provider] - 7 Days Forms: Discharge Signature Page Prescriptions: Famotidine [Pepcid] 20 mg PO DAILY 30 Days tablet oxyCODONE [Roxicodone TAB] 10 mg PO Q6H PRN #14 tablet PRN Reason: Pain, Moderate (4-6) Prednisone [predniSONE 10 mg (6-Day Pack, 21 Tabs)] 10 mg PO .TAPER #1 tab.ds.pk <REGAN CARRION - Last Filed: 03/10/17 07:55> Providers - Providers Date of Admission: 03/05/17 22:41 Date of discharge: 03/09/17 Attending physician: REGAN CARRION MD 03/07/17 07:22 Consult to Physician [CONS] Routine Consulting Provider: JOSUÉ CROOK Reason For Exam: ESRD on HD Place consult to:: Dr. Crook Notified:: Chilo BELL Comment:: Dr. Crook is aware of consultation 03/07/17 15:21 Consult to Physician [CONS] Routine Consulting Provider: MAL CASTILLO Reason For Exam: submandibular sialolithiasis Place consult to:: Dr. Castillo Notified:: Chilo BELL Phone number called:: Was contact made?: Yes If yes, spoke with:: Kimberly-office Time called:: 15:40 Primary care physician: LIZBET ARIAS Hospitalization Reason for admission: Submandibular isalolithisasis, ESRD on H/P Pertinent studies: CTA: left submandibular sialolithiasis Hospital course: Patient was seen and evlaluated at the time of discharge. She was hemodynamically stable at the time of discharge. patient didn't have any difficulty of swallowing. No report from the Nursing staff that the patient has difficulty of swallowing or eating problems. I have discussed extensively with her son and the daughter. They were asking to transfer to [place]. Their reasoning was because of sialolithiasis. I have reviewd the CTA and had left submandibular sialolithiasis, no surrounding edema, abscess or any compromise of the esophagus surrounding tissues. Doesn't warrant emergency transfer. I explained to them but was still asking to be transferred. I asked them to give me an accepting doctor. 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 patient has history of sialolithiasis and and had surgery. I advised them to have follow up with ENT as an O/P. - Discharge Diagnoses (1) Sialolithiasis of submandibular gland Status: Acute (2) ESRD (end stage renal disease) on dialysis Status: Acute Core Measure Documentation - Palliative Care Palliative Care/ Comfort Measures: Not Applicable - Core Measures Any of the following diagnoses?: none Exam - Physical Exam Narrative exam: Not in cardiopulmonary distress. The patient appeared well nourished and normally developed. Left submandibular swelling, mild tenderness for palpation. Vital signs as documented. Head exam is unremarkable. No scleral icterus . Neck is without jugular venous distension, thyromegaly, or carotid bruits. Lungs are clear to auscultation. Cardiac exam reveals regular rate and Rhythm. First and second heart sounds normal. No murmurs, rubs or gallops. Abdominal exam reveals normal bowel sounds, no masses, no organomegaly and no aortic enlargement. Extremities are nonedematous and both femoral and pedal pulses are normal. ENGINEER: Alert and oriented 3. No focal weakness. - Constitutional Vitals: Temp Pulse Resp BP Pulse Ox 97.8 F 80 20 140/76 100 03/09/17 04:28 03/09/17 08:25 03/09/17 04:51 03/09/17 04:28 03/09/17 04:28 Plan Activity: no restrictions Weight Bearing Status: Full Weight Bearing Diet: low cholesterol, low salt, renal
--- NOTE | 2017-03-08 10:36 | Consultation ---
History of Present Illness Consult date: 03/08/17 Chief complaint: left jaw pain, swelling - History of present illness History of present illness: 71 yo F with hx of ESRD on HD presented to the hospital with c/o swelling of tongue and pain over the left jaw area. The pain is on palpation of the area and does not radiate. This started approximately 4 days ago. Pt reports a subjective fever. She has had a calcification removed from her parotid gland in the past, many years ago. She states the swelling is improved but she still has some pain over the jaw area. No trouble swallowing or breathing. No CP, SOB, abd pain, n/v. Past History Past Medical History: anemia, diabetes, dialysis, ESRD, hypertension, other (hx PE) Past Surgical History: Other (calcification removed from parotid gland) Social history: no significant social history Family history: no significant family history Medications and Allergies Allergies Allergy/AdvReac Type Severity Reaction Status Date / Time sulfacetamide Allergy Anaphylaxis Verified 03/06/17 00:22 [From Sulfamide] Home Medications Medication Instructions Recorded Confirmed Last Taken Type Apixaban [Eliquis] 2.5 mg PO DAILY 03/05/17 03/05/17 Unknown History Colchicine [Colcrys] 0.6 mg PO DAILY 03/05/17 03/05/17 Unknown History Fluticasone [Flonase] 1 spray NS QDAY 03/05/17 03/05/17 Unknown History Gabapentin [Neurontin] 300 mg PO BID 03/05/17 03/05/17 Unknown History Ipratropium/Albuter (Nf) 2 puff IH QID 03/05/17 03/05/17 Unknown History [Combivent Inhaler] Midodrine HCl 10 mg PO DAILY 03/05/17 03/05/17 Unknown History Pantoprazole [Protonix TAB] 40 mg PO QDAY 03/05/17 03/05/17 Unknown History Sevelamer HCl [Renagel] 800 mg PO TIDWM 03/05/17 03/05/17 Unknown History levETIRAcetam [Keppra TAB] 250 mg PO 3XW 03/05/17 03/05/17 Unknown History levETIRAcetam [Keppra TAB] 500 mg PO 4XW 03/05/17 03/05/17 Unknown History traMADol [Ultram 50 MG tab] 50 mg PO Q6HR PRN 03/05/17 03/05/17 Unknown History Famotidine [Pepcid] 20 mg PO DAILY tablet 03/08/17 Unknown Rx Famotidine [Pepcid] 20 mg PO DAILY 30 Days tablet 03/08/17 Unknown Rx Prednisone [predniSONE 10 mg 10 mg PO .TAPER #1 tab.ds.pk 03/08/17 Unknown Rx (6-Day Pack, 21 Tabs)] levETIRAcetam [Keppra TAB] 500 mg PO Sa tablet 03/08/17 Unknown Rx levETIRAcetam [Keppra TAB] 500 mg PO [place] tablet 03/08/17 Unknown Rx oxyCODONE [Roxicodone TAB] 10 mg PO Q6H PRN #14 tablet 03/08/17 Unknown Rx Active Meds: Active Medications Acetaminophen (Tylenol) 650 mg PO Q4H PRN PRN Reason: Pain MILD(1-3)/Fever >100.5/SU Last Admin: 03/06/17 09:46 Dose: 650 mg Apixaban (Eliquis) 2.5 mg PO DAILY [facility] PRN Reason: Protocol Last Admin: 03/07/17 09:03 Dose: 2.5 mg Colchicine (Colcrys) 0.6 mg PO DAILY [facility] Last Admin: 03/07/17 09:03 Dose: 0.6 mg Diphenhydramine HCl (Benadryl) 25 mg IV Q6H PRN PRN Reason: Itching Last Admin: 03/07/17 16:26 Dose: 25 mg Famotidine (Pepcid) 20 mg PO DAILY [facility] Last Admin: 03/07/17 09:03 Dose: 20 mg Heparin Sodium (Porcine) (Heparin) 5,000 unit IV [facility] PRN PRN Reason: hemodialysis Hydralazine HCl (Apresoline) 5 mg IV Q6H PRN PRN Reason: Hypertension Sodium Chloride (Nacl 0.9%) 100 mls @ 999 mls/hr IV [facility] PRN PRN Reason: Hypotension Levetiracetam (Keppra) 500 mg PO TuTh [facility] Last Admin: 03/07/17 09:03 Dose: 500 mg Levetiracetam (Keppra) 250 mg PO MoWeFr [facility] Last Admin: 03/06/17 09:38 Dose: 250 mg Levetiracetam (Keppra) 500 mg PO [place] RITESH Levetiracetam (Keppra) 500 mg PO Sa [facility] Methylprednisolone Sodium Succinate (Solu-Medrol) 125 mg IV Q6HR RITESH Last Admin: 03/08/17 06:15 Dose: 125 mg Ondansetron HCl (Zofran) 4 mg IV Q8H PRN PRN Reason: N/V unrelieved by Reglan Last Admin: 03/06/17 10:08 Dose: 4 mg Oxycodone HCl (Roxicodone) 10 mg PO Q6H PRN PRN Reason: Pain, Moderate (4-6) Last Admin: 03/07/17 23:42 Dose: 10 mg Review of Systems All systems: negative (see hpi) Exam Vital Signs Pulse Resp BP Pulse Ox 104 H 18 150/90 96 03/05/17 18:57 03/05/17 18:57 03/05/17 18:57 03/05/17 18:57 Narrative exam: Gen: AAOx3. NAD ENT: large tongue with white plaque over surface. NO LAD. +TTP over left mandible but no edema or cellulitis. No obvious malformation under tongue. CV: S1, S2+ resp: CTAB, no w/w/r Abd: soft, NT Ext: no c/c/c. L sided permcath Results - Labs 03/07/17 05:17 03/08/17 04:35 Abnormal lab results 03/08/17 Range/Units 04:35 Potassium 5.4 H (3.6-5.0) mmol/L Chloride 94.5 L (98-107) mmol/L Carbon Dioxide 21 L (22-30) mmol/L BUN 55 H (7-17) mg/dL Creatinine 5.3 H (0.7-1.2) mg/dL Glucose 314 H (65-100) mg/dL Calcium 7.9 L (8.4-10.2) mg/dL Diabetes panel 03/08/17 Range/Units 04:35 Sodium 138 (137-145) mmol/L Potassium 5.4 H (3.6-5.0) mmol/L Chloride 94.5 L (98-107) mmol/L Carbon Dioxide 21 L (22-30) mmol/L BUN 55 H (7-17) mg/dL Creatinine 5.3 H (0.7-1.2) mg/dL Glucose 314 H (65-100) mg/dL Calcium 7.9 L (8.4-10.2) mg/dL Calcium panel 03/08/17 Range/Units 04:35 Calcium 7.9 L (8.4-10.2) mg/dL Pituitary panel 03/08/17 Range/Units 04:35 Sodium 138 (137-145) mmol/L Potassium 5.4 H (3.6-5.0) mmol/L Chloride 94.5 L (98-107) mmol/L Carbon Dioxide 21 L (22-30) mmol/L BUN 55 H (7-17) mg/dL Creatinine 5.3 H (0.7-1.2) mg/dL Glucose 314 H (65-100) mg/dL Calcium 7.9 L (8.4-10.2) mg/dL Adrenal panel 03/08/17 Range/Units 04:35 Sodium 138 (137-145) mmol/L Potassium 5.4 H (3.6-5.0) mmol/L Chloride 94.5 L (98-107) mmol/L Carbon Dioxide 21 L (22-30) mmol/L BUN 55 H (7-17) mg/dL Creatinine 5.3 H (0.7-1.2) mg/dL Glucose 314 H (65-100) mg/dL Calcium 7.9 L (8.4-10.2) mg/dL - Imaging Additional studies: CT neck: sialolithiasis. Large stone obstructing left submandibular duct Assessment and Plan 71 yo F with 1. tongue swelling ?etiology 2. submandibular sialolithiasis 3. ESRD on HD 4. hx PE on eliquis Plan: 1. needs ENT follow up to address sialolithiasis 2. HD per nephro 3. renal diet 4. dc planning per 1' I d/w 1' and patient's daughter over telephone.
[2017-03-08] MEDS: COLCRYS PO SCH (12:24)
[2017-03-08] MEDS: KEPPRA PO SCH (12:25)
[2017-03-08] MEDS: ROXICODONE PO PRN ×2 (12:25→20:10)
[2017-03-08] MEDS: ELIQUIS PO SCH (12:26)
[2017-03-08] MEDS: PEPCID PO SCH (12:27)
[2017-03-09] MEDS: TYLENOL PO PRN (00:55)
[2017-03-09] MEDS ORDERED: KEPPRA PO SCH ×2 (01:21→10:00)
[2017-03-09] MEDS: ROXICODONE PO PRN ×2 (03:51→10:46)
--- NOTE | 2017-03-09 07:07 | Progress Note ---
Assessment and Plan 1. Hyperkalemia: Patient was last dialyzed yesterday. 2. ESRD: Continue hemodialysis three times a week. 3. Anemia: Monitor and Epogen if needed. 4. Tongue swelling. Subjective Date of service: 03/09/17 Interval history: Patient was seen and examined at the bedside. Objective - Vital Signs Vital signs: Vital Signs - 12hr 03/08/17 03/08/17 03/08/17 19:55 20:05 20:10 Temperature Pulse Rate 85 Pulse Rate [ Apical] Respiratory 18 18 Rate Respiratory Rate [Denies Pain] Blood Pressure O2 Sat by Pulse Oximetry 03/08/17 03/08/17 03/08/17 20:36 22:00 22:05 Temperature 98.0 F Pulse Rate 93 H 85 Pulse Rate [ 78 Apical] Respiratory 20 20 Rate Respiratory Rate [Denies Pain] Blood Pressure 123/63 O2 Sat by Pulse 94 Oximetry 03/08/17 03/09/17 03/09/17 23:04 00:12 00:55 Temperature 98.1 F Pulse Rate 82 Pulse Rate [ Apical] Respiratory 18 20 Rate Respiratory 20 Rate [Denies Pain] Blood Pressure 145/75 O2 Sat by Pulse 97 Oximetry 03/09/17 03/09/17 03/09/17 01:55 04:28 04:51 Temperature 97.8 F Pulse Rate 77 Pulse Rate [ Apical] Respiratory 20 18 20 Rate Respiratory Rate [Denies Pain] Blood Pressure 140/76 O2 Sat by Pulse 100 Oximetry - General Appearance General appearance: well-developed, well-nourished, appears stated age, other ( no distress, left IJ tunnel catheter) EENT: ATNC, PERRL, hearing intact Neck: supple Respiratory: Present: Clear to Ascultation Cardiology: regular, S1S2, no murmurs Gastrointestinal: normoactive bowel sounds, no tenderness, no distended Integumentary: no rash, warm and dry Neurologic: no asterixis, confused, disoriented, other (able to move extremities ) Musculoskeletal: other (no edema) Psychiatric: cooperative - Lab 03/07/17 05:17 03/08/17 04:35 Most recent lab results Calcium 7.9 mg/dL (8.4-10.2) L 03/08/17 04:35
[2017-03-09 08:13] LABS: Calcium 8.4 mg/dL (8.4-10.2); Chloride 92.7 mmol/L (98-107); Potassium 4.7 mmol/L (3.6-5.0)
--- NOTE | 2017-03-09 08:40 | Progress Note ---
Assessment and Plan Assessment and plan: ESRD on hemodialysis - Nephrology is consulted and she is getting dialysis today Left submandibular Sialolithiasis - CTA showed left submandibular sialolithiasis - No abscess, or surrounding inflammation - Surgery consulted and deferred to ENT - We don't have ENT and the plan is to have an O/P F/U - It is not an emergency and doesn't need emergency transfer, if the family find ENT doctor to accept her I will. Disposition - DC with the advice to have O/P ENT follow up, but the family appealed the discharge. - Patient Problems (1) Sialolithiasis of submandibular gland Current Visit: Yes Status: Acute (2) ESRD (end stage renal disease) on dialysis Current Visit: Yes Status: Acute History Interval history: And was seen and evaluated, patient is complaining mild left mandibular pain, no difficulty breathing, no difficulty swallowing. Hospitalist Physical - Physical exam Narrative exam: Not in cardiopulmonary distress. The patient appeared well nourished and normally developed. Left submandibular swelling, mild tenderness for palpation. Vital signs as documented. Head exam is unremarkable. No scleral icterus . Neck is without jugular venous distension, thyromegaly, or carotid bruits. Lungs are clear to auscultation. Cardiac exam reveals regular rate and Rhythm. First and second heart sounds normal. No murmurs, rubs or gallops. Abdominal exam reveals normal bowel sounds, no masses, no organomegaly and no aortic enlargement. Extremities are nonedematous and both femoral and pedal pulses are normal. 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 No focal weakness. - Constitutional Vitals: Temp Pulse Resp BP Pulse Ox 97.8 F 80 20 140/76 100 03/09/17 04:28 03/09/17 08:25 03/09/17 04:51 03/09/17 04:28 03/09/17 04:28 General appearance: Present: no acute distress Results - Labs CBC & Chem 7: 03/07/17 05:17 03/09/17 07:01 Labs: Laboratory Last Values WBC 10.5 K/mm3 (4.5-11.0) 03/07/17 05:17 RBC 3.43 M/mm3 (3.65-5.03) L 03/07/17 05:17 Hgb 10.9 gm/dl (10.1-14.3) 03/07/17 05:17 Hct 33.3 % (30.3-42.9) 03/07/17 05:17 MCV 97 fl (79-97) 03/07/17 05:17 MCH 32 pg (28-32) 03/07/17 05:17 MCHC 33 % (30-34) 03/07/17 05:17 RDW 14.7 % (13.2-15.2) 03/07/17 05:17 Plt Count 192 K/mm3 (140-440) 03/07/17 05:17 Lymph % (Auto) 9.7 % (13.4-35.0) L 03/07/17 05:17 [place] % (Auto) 3.0 % (0.0-7.3) 03/07/17 05:17 Eos % (Auto) 0.1 % (0.0-4.3) 03/07/17 05:17 Baso % (Auto) 0.9 % (0.0-1.8) 03/07/17 05:17 Lymph # 1.0 K/mm3 (1.2-5.4) L 03/07/17 05:17 [place] # 0.3 K/mm3 (0.0-0.8) 03/07/17 05:17 Eos # 0.0 K/mm3 (0.0-0.4) 03/07/17 05:17 Baso # 0.1 K/mm3 (0.0-0.1) 03/07/17 05:17 Add Manual Diff Complete 03/07/17 05:17 Seg Neutrophils % 86.3 % (40.0-70.0) H 03/07/17 05:17 Seg Neutrophils # 9.0 K/mm3 (1.8-7.7) H 03/07/17 05:17 Sodium 137 mmol/L (137-145) 03/09/17 07:01 Potassium 4.7 mmol/L (3.6-5.0) 03/09/17 07:01 Chloride 92.7 mmol/L (98-107) L 03/09/17 07:01 Carbon Dioxide 18 mmol/L (22-30) L 03/09/17 07:01 Anion Gap 31 mmol/L 03/09/17 07:01 BUN 48 mg/dL (7-17) H 03/09/17 07:01 Creatinine 3.8 mg/dL (0.7-1.2) H 03/09/17 07:01 Estimated GFR 14 ml/min 03/09/17 07:01 BUN/Creatinine Ratio 13 % 03/09/17 07:01 Glucose 390 mg/dL (65-100) H 03/09/17 07:01 Calcium 8.4 mg/dL (8.4-10.2) 03/09/17 07:01 TSH 0.432 mlU/mL (0.270-4.200) 03/06/17 09:47
[2017-03-09] MEDS: KEPPRA PO SCH (10:40)
[2017-03-09] MEDS: COLCRYS PO SCH (10:41)
[2017-03-09] MEDS: ELIQUIS PO SCH (10:41)
[2017-03-09] MEDS: PEPCID PO SCH (10:41)
[2017-03-09 12:23] VITALS: BP 156/65
[2017-03-10] MEDS ORDERED: KEPPRA PO SCH (10:00)
== END 2017-03-09 12:15 | disposition home health service (06) | DRG 154 ==
LOC: ED 18:54 → 4A 22:41
PROVIDERS: ADMIT Internal Medicine; ATTEND Internal Medicine
PROC: 5A1D70Z Performance of Urinary Filtration, Intermittent, Less than 6 Hours Per Day (ICD-10-PCS; principal; 2017-03-07)
PROC: 5A1D70Z Performance of Urinary Filtration, Intermittent, Less than 6 Hours Per Day (ICD-10-PCS; 2017-03-08)
DX: K11.5 Sialolithiasis (principal); N18.6 End stage renal disease; I12.0 Hypertensive chronic kidney disease with stage 5 chronic kidney disease or end stage renal disease; T78.3XXA Angioneurotic edema, initial encounter; K21.9 Gastro-esophageal reflux disease without esophagitis; Z96.649 Presence of unspecified artificial hip joint; E11.42 Type 2 diabetes mellitus with diabetic polyneuropathy; E11.22 Type 2 diabetes mellitus with diabetic chronic kidney disease; E87.5 Hyperkalemia; Z86.711 Personal history of pulmonary embolism; Z79.01 Long term (current) use of anticoagulants; Z82.49 Family history of ischemic heart disease and other diseases of the circulatory system; Z88.2 Allergy status to sulfonamides; Z79.899 Other long term (current) drug therapy; Z79.2 Long term (current) use of antibiotics
CPT/HCPCS: 36415; 70490; 70491; 80048; 84443; 85025; J1100; J1200; J1644; J1650; J2405; J2543; J2930; Q9967

== ENCOUNTER 2020-08-23 22:35 | Inpatient (IN) | payer MEDICARE ==
--- NOTE | 2020-08-23 23:10 | Emergency Department Report ---
ED General Adult HPI - General Stated complaint: BLEEDING FROM PORT PUI?: No Time Seen by Provider: 08/23/20 22:44 Source: patient, family (spoke with daughter per phone), EMS, old records reviewed Mode of arrival: Ambulatory Limitations: Other (dementia) - History of Present Illness Initial comments: Chief complaint: Dialysis fistula bleeding HPI: This is a 72-year-old female with history of end-stage renal disease on hemodialysis, pulmonary emboli, GERD, seizure, diabetes mellitus, dementia, major depressive disorder, sleep apnea, gout, lumbar radiculopathy who presents with bleeding from right bicep AV fistula. Patient receives onsite dialysis at [facility]. [facility]. Patient had hypotension 90/40 according EMS. Patient had bleeding in spite 3% changing. Patient states that her right upper extremity is broken. Patient takes apixaban 5 mg daily. Additinal History obtained from daughter per phone. Patient was injured in transport. While being transported to and from hemodialysis, she was injured. She suffered right humerus fracture and right tibia fracture. She has been at the long-term facility for the last 21 days for rehabilitation. She normally lives with her daughter. Nephrolgy Dr. News[facility] -: Sudden, This evening Location: right, upper extremity Consistency: constant, now resolved Improves with: other (Improved with pressure bandage) Worsens with: none Associated Symptoms: other Treatments Prior to Arrival: other (EMS treatment with pressure bandage) - Related Data Home Medications Medication Instructions Recorded Confirmed Last Taken Apixaban [Eliquis] 2.5 mg PO DAILY 03/05/17 03/05/17 Unknown Colchicine [Colcrys] 0.6 mg PO DAILY 03/05/17 03/05/17 Unknown Fluticasone [Flonase] 1 spray NS QDAY 03/05/17 03/05/17 Unknown Gabapentin 300 mg PO BID 03/05/17 03/05/17 Unknown Ipratropium/Albuter (Nf) 2 puff IH QID 03/05/17 03/05/17 Unknown [Combivent Inhaler] Midodrine HCl 10 mg PO DAILY 03/05/17 03/05/17 Unknown Pantoprazole [Protonix TAB] 40 mg PO QDAY 03/05/17 03/05/17 Unknown levETIRAcetam [Keppra TAB] 250 mg PO 3XW 03/05/17 03/05/17 Unknown levETIRAcetam [Keppra TAB] 500 mg PO 4XW 03/05/17 03/05/17 Unknown sevelamer HCL [Renagel] 800 mg PO TIDWM 03/05/17 03/05/17 Unknown traMADoL [Ultram 50 MG tab] 50 mg PO Q6HR PRN 03/05/17 03/05/17 Unknown Previous Rx's Medication Instructions Recorded Last Taken Type Famotidine [Pepcid] 20 mg PO DAILY tablet 03/08/17 Unknown Rx Famotidine [Pepcid] 20 mg PO DAILY 30 Days tablet 03/08/17 Unknown Rx Prednisone [predniSONE 10 mg 10 mg PO .TAPER #1 tab.ds.pk 03/08/17 Unknown Rx (6-Day Pack, 21 Tabs)] levETIRAcetam [Keppra TAB] 500 mg PO Sa tablet 03/08/17 Unknown Rx levETIRAcetam [Keppra TAB] 500 mg PO [place] tablet 03/08/17 Unknown Rx oxyCODONE [roxiCODONE] 10 mg PO Q6H PRN #14 tablet 03/08/17 Unknown Rx Allergies Allergy/AdvReac Type Severity Reaction Status Date / Time sulfacetamide Allergy Anaphylaxis Verified 03/06/17 00:22 [From Sulfamide] ED Review of Systems ROS: Stated complaint: BLEEDING FROM PORT Other details as noted in HPI Comment: Unobtainable due to pts medical conditions (limited due to dementia) ED Past Medical Hx - Past Medical History Previous Medical History?: Yes Hx Hypertension: Yes Hx Diabetes: No Hx Pulmonary Embolism: Yes Hx GERD: Yes Hx Renal Disease: Yes (ESRD/dialysis M,W,F) Hx Arthritis: Yes Hx Seizures: Yes Hx Asthma: No Hx COPD: No Additional medical history: neuropathy - Surgical History Past Surgical History?: Yes Additional Surgical History: hip replacement. left Vas-Cath. Right bicep AV fistula - Social History Smoking Status: Never Smoker - Medications Home Medications: Home Medications Medication Instructions Recorded Confirmed Last Taken Type Apixaban [Eliquis] 2.5 mg PO DAILY 03/05/17 03/05/17 Unknown History Colchicine [Colcrys] 0.6 mg PO DAILY 03/05/17 03/05/17 Unknown History Fluticasone [Flonase] 1 spray NS QDAY 03/05/17 03/05/17 Unknown History Gabapentin 300 mg PO BID 03/05/17 03/05/17 Unknown History Ipratropium/Albuter (Nf) 2 puff IH QID 03/05/17 03/05/17 Unknown History [Combivent Inhaler] Midodrine HCl 10 mg PO DAILY 03/05/17 03/05/17 Unknown History Pantoprazole [Protonix TAB] 40 mg PO QDAY 03/05/17 03/05/17 Unknown History levETIRAcetam [Keppra TAB] 250 mg PO 3XW 03/05/17 03/05/17 Unknown History levETIRAcetam [Keppra TAB] 500 mg PO 4XW 03/05/17 03/05/17 Unknown History sevelamer HCL [Renagel] 800 mg PO TIDWM 03/05/17 03/05/17 Unknown History traMADoL [Ultram 50 MG tab] 50 mg PO Q6HR PRN 03/05/17 03/05/17 Unknown History Famotidine [Pepcid] 20 mg PO DAILY tablet 03/08/17 Unknown Rx Famotidine [Pepcid] 20 mg PO DAILY 30 Days tablet 03/08/17 Unknown Rx Prednisone [predniSONE 10 mg 10 mg PO .TAPER #1 tab.ds.pk 03/08/17 Unknown Rx (6-Day Pack, 21 Tabs)] levETIRAcetam [Keppra TAB] 500 mg PO Sa tablet 03/08/17 Unknown Rx levETIRAcetam [Keppra TAB] 500 mg PO [place] tablet 03/08/17 Unknown Rx oxyCODONE [roxiCODONE] 10 mg PO Q6H PRN #14 tablet 03/08/17 Unknown Rx ED Physical Exam - General Limitations: Other (Dementia) General appearance: alert, in no apparent distress, other (Awake alert slightly agitated) - Head Head exam: Present: atraumatic, normocephalic - Eye Eye exam: Present: normal appearance - ENT ENT exam: Present: mucous membranes moist - Neck Neck exam: Present: normal inspection, full ROM. Absent: tenderness, meningismus - Respiratory Respiratory exam: Present: normal lung sounds bilaterally. Absent: respiratory distress, wheezes, rales, rhonchi - Cardiovascular Cardiovascular Exam: Present: regular rate, normal rhythm, normal heart sounds. Absent: systolic murmur, diastolic murmur, rubs, gallop - GI/Abdominal GI/Abdominal exam: Present: soft, normal bowel sounds. Absent: distended, tenderness, guarding, rebound - Extremities Exam Extremities exam: Present: other (Right bicep: Soaked bandage with Kerlix, no active bleeding knee immobilizers in place both lower extremities) - Back Exam Back exam: Present: normal inspection - Neurological Exam Neurological exam: Present: alert, other (Oriented to name only) - Psychiatric Psychiatric exam: Present: normal affect, agitated, anxious - Skin Skin exam: Present: warm, dry, intact, normal color. Absent: rash ED Course Vital Signs 08/23/20 22:46 Temperature 97.4 F L Pulse Rate 84 Blood Pressure 95/50 - Reevaluation(s) Reevaluation #1: 08/23/20 23:51 Nurse informed me that patient had active bleeding. The Morales bandage was soaked through blood. I removed all bandages. Also area of small oozing of blood w ithout pulsatile bleeding I apply clamp directly onto the area. Reevaluation #2: 08/24/20 00:23 Patient continues to have bleeding. Patient developed profound hypotension. Unable to palpate radial pulse at this time. Diastolic blood pressure 19. Patient began to lose consciousness. Patient required transfusion of uncrossed matched O- blood emergently. I spoke with vascular surgeon Dr. Gutierrez who recommended suture repair of the opening. I emergently under clean nonsterile conditions inserted for type simple interrupted sutures. Hemostasis was achieved. Daughter at the bedside. Repeat blood pressure 108/38 after initiation of blood transfusion. Reevaluation #3: 08/24/20 01:34 Repeat blood pressure 107 2:48 units of uncrossed matched packed red blood cells. There was no bleeding from the AV fistula site. Sutures intact. - Laceration /Wound Repair Right Anterior Arm Wound Location: upper extremity Wound's Depth, Shape: superficial Betadine Prep?: No Wound Repaired With: sutures Suture Size/Type: 4:0 Number of Sutures: 4 Sterile Dressing Applied?: No Progress: Emergent suture insertion at AV fistula site for hemostasis under clean condition ED Medical Decision Making - Lab Data Result diagrams: 08/23/20 23:18 08/23/20 23:18 - Medical Decision Making Bleeding complication right bicep AV fistula: I immediately partially removed Kerlix. I saw the there was no active bleeding. I applied bulky dressing. Morales wrap loosely applied. No active bleeding. I spoke immediately with vascular surgeon Dr. Barrett Gutierrez. He recommended n.p.o. status for fistulogram tomorrow After patient's bleeding occurred, she required transfusion of uncrossed matched blood as well as suture repair of the skin opening from which bleeding was expressed. Hemostasis controlled. Blood pressure improved with transfusion of uncrossed match O- blood. I spoke with die fitter and hospitalist regarding patient's care. Critical Care Time: Yes Critical care time in (mins) excluding proc time.: 90 Critical care attestation.: If time is entered above; I have spent that time in minutes in the direct care of this critically ill patient, excluding procedure time. 90 minutes of critical care time excluding procedures were used in the care of the patient. I came immediately to the bedside upon patient's arrival. I obtained history from EMS at the bedside. I discussed treatment plan with the nursing team members. I reviewed electronic record. I kept the family member informed. I obtained additional history from daughter performed. Patient required multiple interventions and reassessments in order to monitor and control bleeding.. ED Disposition Clinical Impression: Complication of AV dialysis fistula, Hemorrhagic shock, ESRD (end stage renal disease) on dialysis Disposition: OP ADMIT IP TO THIS HOSP Is pt being admited?: Yes Does the pt Need Aspirin: No Condition: Fair
[2020-08-23 23:50] LABS: Basophils # (Auto) 0.1 K/mm3 (0.0-0.1); Basophils % (Auto) 0.5 % (0.0-1.8); Hematocrit 28.9 % (30.3-42.9); Hemoglobin 9.1 gm/dl (10.1-14.3); Lymphocytes # (Auto) 1.9 K/mm3 (1.2-5.4); Lymphocytes % (Auto) 19.3 % (13.4-35.0); Mean Corpuscular HGB Conc 31 % (30-34); Mean Corpuscular Volume 88 fl (79-97); Monocytes # (Auto) 0.9 K/mm3 (0.0-0.8); Monocytes % (Auto) 8.5 % (0.0-7.3); Platelet Count 360 K/mm3 (140-440); Red Blood Count 3.29 M/mm3 (3.65-5.03); Red Cell Distribution Width 18.8 % (13.2-15.2)
[2020-08-23] MEDS ORDERED: SODIUM CHLORIDE 0.9% 500 ML 500 ML IV ONE (23:51)
[2020-08-23 23:59] LABS: INR 1.97 (0.87-1.13)
[2020-08-24] LABS: Partial Thromboplastin Time 54.8 Sec. (24.2-36.6)
[2020-08-24 00:09] LABS: BUN/Creatinine Ratio 4; Blood Urea Nitrogen 14 mg/dL (7-17); Calcium 7.9 mg/dL (8.4-10.2); Hemolysis Index 1
[2020-08-24 00:10] LABS: Alanine Aminotransferase < 5 units/L (7-56)
[2020-08-24] MEDS ORDERED: DEXTROSE 50% IN WATER (25GM) 50 ML SYRINGE IV PRN (01:20)
--- NOTE | 2020-08-24 01:28 | History and Physical Report ---
History of Present Illness Date of examination: 08/24/20 Date of admission: 08/24/2020 Chief complaint: Bleeding from right upper arm AV fistula. History of present illness: 72-year-old -Swiss female with known history of end-stage renal disease on dialysis, diabetes mellitus, pulmonary embolism, seizure disorder, GERD, dementia, major depressive disorder, gout, sleep apnea, lumbar radiculopathy, presenting to the emergency room today with complaint of bleeding from the right upper arm AV fistula. [facility] having [facility]. She is currently on apixaban by 5 mg daily and was said to have been bleeding from her fistula site earlier today. Upon arrival of EMS she was said to be hypotensive with a blood pressure of 90/40 mmHg. Pressure and dressing was applied to the bleeding site however bleeding persisted. Patient normally resides with daughter was was said to have had a broken right humerus and right distal tibia during transportation for hemodialysis. She is currently undergoing rehabilitation. She normally gets her dialysis at [facility]. Upon arrival in the emergency room, patient bleeding fistula was sutured by the ER physician. Vascular surgeon Dr. Gutierrez was also consulted. Recommendation is to keep patient n.p.o. overnight for possible intervention in the a.m. Hemoglobin was about 9.1 and hematocrit of 28.9. Patient was transfused with O- negative PRBC. Past History Past Medical History: arthritis, diabetes, dialysis, ESRD, GERD, hypertension, seizures, other (Neuropathy, dementia) Past Surgical History: total hip replacement, Other (Left Vas-Cath, right bicep AV fistula.) Social history: lives with family Family history: no significant family history Medications and Allergies Allergies Allergy/AdvReac Type Severity Reaction Status Date / Time sulfacetamide Allergy Anaphylaxis Verified 03/06/17 00:22 [From Sulfamide] Home Medications Medication Instructions Recorded Confirmed Last Taken Type Apixaban [Eliquis] 2.5 mg PO DAILY 03/05/17 03/05/17 Unknown History Colchicine [Colcrys] 0.6 mg PO DAILY 03/05/17 03/05/17 Unknown History Fluticasone [Flonase] 1 spray NS QDAY 03/05/17 03/05/17 Unknown History Gabapentin 300 mg PO BID 03/05/17 03/05/17 Unknown History Ipratropium/Albuter (Nf) 2 puff IH QID 03/05/17 03/05/17 Unknown History [Combivent Inhaler] Midodrine HCl 10 mg PO DAILY 03/05/17 03/05/17 Unknown History Pantoprazole [Protonix TAB] 40 mg PO QDAY 03/05/17 03/05/17 Unknown History levETIRAcetam [Keppra TAB] 250 mg PO 3XW 03/05/17 03/05/17 Unknown History levETIRAcetam [Keppra TAB] 500 mg PO 4XW 03/05/17 03/05/17 Unknown History sevelamer HCL [Renagel] 800 mg PO TIDWM 03/05/17 03/05/17 Unknown History traMADoL [Ultram 50 MG tab] 50 mg PO Q6HR PRN 03/05/17 03/05/17 Unknown History Famotidine [Pepcid] 20 mg PO DAILY tablet 03/08/17 Unknown Rx Famotidine [Pepcid] 20 mg PO DAILY 30 Days tablet 03/08/17 Unknown Rx Prednisone [predniSONE 10 mg 10 mg PO .TAPER #1 tab.ds.pk 03/08/17 Unknown Rx (6-Day Pack, 21 Tabs)] levETIRAcetam [Keppra TAB] 500 mg PO Sa tablet 03/08/17 Unknown Rx levETIRAcetam [Keppra TAB] 500 mg PO [place] tablet 03/08/17 Unknown Rx oxyCODONE [roxiCODONE] 10 mg PO Q6H PRN #14 tablet 03/08/17 Unknown Rx Active Meds: Active Medications Dextrose (Dextrose 50% In Water (25gm) 50 Ml Syringe) 50 ml IV Q30MIN PRN; Protocol PRN Reason: Hypoglycemia Dextrose (Dextrose 50% In Water (25gm) 50 Ml Syringe) 50 ml IV Q30MIN PRN; Protocol PRN Reason: Hypoglycemia Insulin Human Lispro (Insulin Lispro 100 Unit/Ml) 0 unit SUB-Q ACHS RITESH; Protocol Morphine Sulfate (Morphine 2 Mg/1 Ml Inj) 2 mg IV Q4H PRN PRN Reason: Pain, Moderate (4-6) Ondansetron HCl (Ondansetron 4 Mg/2 Ml Inj) 4 mg IV Q8H PRN PRN Reason: Nausea And Vomiting Sodium Chloride (Sodium Chloride 0.9% 10 Ml Flush Syringe) 10 ml IV BID RITESH Sodium Chloride (Sodium Chloride 0.9% 10 Ml Flush Syringe) 10 ml IV PRN PRN PRN Reason: LINE FLUSH Review of Systems ROS unobtainable: due to mental status (Patient has known history of dementia) Exam - Constitutional Vitals: Temp Pulse Resp BP Pulse Ox 97.4 F L 84 95/50 08/23/20 22:46 08/23/20 22:46 08/23/20 22:46 General appearance: Present: no acute distress, well-nourished - EENT Eyes: Present: PERRL, EOM intact. Absent: scleral icterus ENT: hearing intact, clear oral mucosa, dentition normal - Neck Neck: Present: supple, normal ROM - Respiratory Respiratory effort: normal Respiratory: bilateral: CTA - Cardiovascular Rhythm: regular Heart Sounds: Present: S1 & S2. Absent: gallop, systolic murmur, diastolic murmur, rub, click - Extremities Extremities: no ischemia, pulses intact, pulses symmetrical, No edema, normal temperature, normal color, Full ROM, abnormal (Right upper extremity AV fistula with suture in place) Peripheral Pulses: within normal limits - Abdominal General gastrointestinal: Present: soft, non-tender, non-distended, normal bowel sounds. Absent: mass - Integumentary Integumentary: Present: clear, warm, dry, pale (Mild pallor), normal turgor. Absent: rash - Musculoskeletal Musculoskeletal: strength equal bilaterally, other (Unna boots on both lower extremities) - Psychiatric Psychiatric: appropriate mood/affect, intact judgment & insight, cooperative - Neurologic Neurologic: CNII-XII intact, no focal deficits, moves all extremities Results - Labs CBC & Chem 7: 08/23/20 23:18 08/23/20 23:18 Labs: Abnormal lab results 08/23/20 08/23/20 08/23/20 Range/Units 23:18 23:18 23:18 RBC 3.29 L (3.65-5.03) M/mm3 Hgb 9.1 L (10.1-14.3) gm/dl Hct 28.9 L (30.3-42.9) % RDW 18.8 H (13.2-15.2) % [place]ains % (Auto) 8.5 H (0.0-7.3) % [place]ains # (Auto) 0.9 H (0.0-0.8) K/mm3 Seg Neutrophils % 71.7 H (40.0-70.0) % PT 22.8 H (12.2-14.9) Sec. INR 1.97 H (0.87-1.13) APTT 54.8 H (24.2-36.6) Sec. Sodium 135 L (137-145) mmol/L Chloride 91.2 L (98-107) mmol/L Creatinine 3.4 H (0.6-1.2) mg/dL Glucose 156 H (65-100) mg/dL Calcium 7.9 L (8.4-10.2) mg/dL ALT < 5 L (7-56) units/L Alkaline Phosphatase 589 H (35-129) units/L Total Protein 5.3 L (6.3-8.2) g/dL Albumin 3.0 L (3.9-5) g/dL Crossmatch 08/24/20 Range/Units 00:55 RBC (3.65-5.03) M/mm3 Hgb (10.1-14.3) gm/dl Hct (30.3-42.9) % RDW (13.2-15.2) % [place]ains % (Auto) (0.0-7.3) % Rains # (Auto) (0.0-0.8) K/mm3 Seg Neutrophils % (40.0-70.0) % PT (12.2-14.9) Sec. INR (0.87-1.13) APTT (24.2-36.6) Sec. Sodium (137-145) mmol/L Chloride (98-107) mmol/L Creatinine (0.6-1.2) mg/dL Glucose (65-100) mg/dL Calcium (8.4-10.2) mg/dL ALT (7-56) units/L Alkaline Phosphatase (35-129) units/L Total Protein (6.3-8.2) g/dL Albumin (3.9-5) g/dL Crossmatch See Detail Assessment and Plan - Patient Problems (1) Complication of AV dialysis fistula Current Visit: No Status: Acute Plan to address problem: Patient had sutures placed on the bleeding fistula. Vascular surgeon has been consulted for possible intervention in the a.m. (2) ESRD (end stage renal disease) on dialysis Current Visit: Yes Status: Acute Plan to address problem: Patient gets dialysis on Saturday and Saturdays. Consult placed to nephrology for evaluation during this admission. (3) Diabetes mellitus Current Visit: No Status: Acute Plan to address problem: We will monitor Accu-Cheks closely. (4) Hemorrhagic shock Current Visit: No Status: Acute Plan to address problem: We will hold anticoagulation in view of the current bleeding and possible surgical intervention in the a.m. (5) DVT prophylaxis Current Visit: No Status: Acute Plan to address problem: We will place patient on sequential compression device meanwhile. (6) Full code status Current Visit: No Status: Acute Plan to address problem: Patient is full code.
[2020-08-24] MEDS ORDERED: oxyCODONE /ACETAMINOPHEN 5-325MG TAB PO ONE (02:03)
[2020-08-24] MEDS ORDERED: SODIUM CHLORIDE 0.9% 500 ML 500 ML IV ONE (05:35)
[2020-08-24] MEDS: MORPHINE 2 MG/1 ML INJ IV PRN ×3 (05:57→23:47)
--- NOTE | 2020-08-24 07:47 | Progress Note ---
Assessment and Plan Assessment and plan: Advised the nurse to request accurate/current home medications from family/pharmacy And enter in the computer and contact MD to reconcile --Hemorrhagic shock/hypotension Current Visit: No Status: Acute We will hold anticoagulation in view of the current bleeding and possible surgical intervention in the a.m. Fluid bolus with caution due to ESRD Midodrine 5 mg 3 times a day If no improvement, start Levophed per protocol -- Complication of AV dialysis fistula Current Visit: No Status: Acute Patient had sutures placed on the bleeding fistula. Vascular surgeon has been consulted for possible intervention in the a.m. -- ESRD (end stage renal disease) on dialysis Current Visit: Yes Status: Acute Patient gets dialysis on Saturday and Saturdays. Consult placed to nephrology for evaluation during this admission. --Moderate malnutrition; hypoalbuminemia Current Visit: Yes Status: Acute . Albumin 3.0, nutrition supplements and supportive care Nutrition consult if needed --History of seizure disorder; Current Visit: No Status: chronic Seizure precautions, Ativan as needed Resume antiepileptic medications When accurate home medication list is available Cannot drive until cleared by neurology or PMD --Type II diabetes mellitus Current Visit: No Status: chronic Accu-Chek sliding scale coverage ADA diet Insulin as needed -- DVT prophylaxis Current Visit: No Status: Acute We will place patient on sequential compression device meanwhile. No pharmacologic anticoagulation in view of bleeding from AV fistula --Full code status Current Visit: No Status: Acute Patient is full code. We will closely monitor the patient and adjust management as needed Plan of care reviewed with the patient and her nurse The high probability of a clinically significant, sudden or life threatening deterioration of the [vascular, renal , metabolic, endocrine,] system(s) required my full and direct attention, intervention and personal management.The aggregate critical care time was [40] minutes. This time is in addition to time spent performing reported procedures but includes the following: [x] Data Review and interpretation [x] Patient assessment and monitoring of vital signs [x] Documentation [x] Medication orders and management I called patient's daughter Ms. Kerri Elias at [phone] and discussed in detail Patient's condition, tests and reports consultants recommendation, and treatment plan. Patient had many questions, I answered all of them and encouraged her to call back if she has any new concerns . History Interval history: I seen and examined the patient at the bedside in ICU this morning Patient's chart, medications, tests and reports reviewed Patient was admitted with altered level of consciousness, malfunctioning of AV graft and hypotension Patient received 2 boluses of normal saline with mild improvement This morning again hypotensive, started trial of midodrine. Patient is alert and awake confused In mild distress, Hypotensive Vital signs reviewed Hospitalist Physical - Constitutional Vitals: Temp Pulse Resp BP Pulse Ox 98.0 F 87 15 71/44 100 08/24/20 04:00 08/24/20 05:00 08/24/20 05:57 08/24/20 05:00 08/24/20 05:32 General appearance: Present: mild distress, well-nourished, other (Elderly and frail) - EENT Eyes: Present: PERRL, EOM intact - Neck Neck: Present: supple, normal ROM - Respiratory Respiratory effort: normal Respiratory: bilateral: diminished, rales, negative: rhonchi, wheezing - Cardiovascular Rhythm: regular Heart Sounds: Present: S1 & S2 - Extremities Extremities: no ischemia, No edema - Abdominal General gastrointestinal: soft, non-tender, non-distended, normal bowel sounds - Integumentary Integumentary: Present: clear, warm - Psychiatric Psychiatric: appropriate mood/affect, cooperative - Neurologic Neurologic: CNII-XII intact, moves all extremities Results - Labs CBC & Chem 7: 08/24/20 07:47 08/24/20 07:47 Labs: Laboratory Last Values WBC 10.1 K/mm3 (4.5-11.0) 08/23/20 23:18 RBC 3.29 M/mm3 (3.65-5.03) L 08/23/20 23:18 Hgb 9.1 gm/dl (10.1-14.3) L 08/23/20 23:18 Hct 28.9 % (30.3-42.9) L 08/23/20 23:18 MCV 88 fl (79-97) 08/23/20 23:18 MCH 28 pg (28-32) 08/23/20 23:18 MCHC 31 % (30-34) 08/23/20 23:18 RDW 18.8 % (13.2-15.2) H 08/23/20 23:18 Plt Count 360 K/mm3 (140-440) 08/23/20 23:18 Lymph % (Auto) 19.3 % (13.4-35.0) 08/23/20 23:18 [place] % (Auto) 8.5 % (0.0-7.3) H 08/23/20 23:18 Eos % (Auto) 0.0 % (0.0-4.3) 08/23/20 23:18 Baso % (Auto) 0.5 % (0.0-1.8) 08/23/20 23:18 Lymph # (Auto) 1.9 K/mm3 (1.2-5.4) 08/23/20 23:18 [place] # (Auto) 0.9 K/mm3 (0.0-0.8) H 08/23/20 23:18 Eos # (Auto) 0.0 K/mm3 (0.0-0.4) 08/23/20 23:18 Baso # (Auto) 0.1 K/mm3 (0.0-0.1) 08/23/20 23:18 Seg Neutrophils % 71.7 % (40.0-70.0) H 08/23/20 23:18 Seg Neutrophils # 7.2 K/mm3 (1.8-7.7) 08/23/20 23:18 PT 22.8 Sec. (12.2-14.9) H 08/23/20 23:18 INR 1.97 (0.87-1.13) H 08/23/20 23:18 APTT 54.8 Sec. (24.2-36.6) H 08/23/20 23:18 Sodium 135 mmol/L (137-145) L 08/23/20 23:18 Potassium 4.0 mmol/L (3.6-5.0) 08/23/20 23:18 Chloride 91.2 mmol/L (98-107) L 08/23/20 23:18 Carbon Dioxide 22 mmol/L (22-30) 08/23/20 23:18 Anion Gap 26 mmol/L 08/23/20 23:18 BUN 14 mg/dL (7-17) 08/23/20 23:18 Creatinine 3.4 mg/dL (0.6-1.2) H 08/23/20 23:18 Estimated GFR 16 ml/min 08/23/20 23:18 BUN/Creatinine Ratio 4 % 08/23/20 23:18 Glucose 156 mg/dL (65-100) H 08/23/20 23:18 Calcium 7.9 mg/dL (8.4-10.2) L 08/23/20 23:18 Total Bilirubin 0.50 mg/dL (0.1-1.2) 08/23/20 23:18 AST 13 units/L (5-40) 08/23/20 23:18 ALT < 5 units/L (7-56) L 08/23/20 23:18 Alkaline Phosphatase 589 units/L (35-129) H 08/23/20 23:18 Total Protein 5.3 g/dL (6.3-8.2) L 08/23/20 23:18 Albumin 3.0 g/dL (3.9-5) L 08/23/20 23:18 Albumin/Globulin Ratio 1.3 % 08/23/20 23:18 Blood Type A POSITIVE 08/24/20 00:55 Antibody Screen Negative 08/24/20 00:55 Crossmatch See Detail 08/24/20 00:55 Mcdaniel/IV: Voiding Method External Female Catheter Active Medications - Current Medications Current Medications: Generic Name Dose Route Start Last Admin Trade Name Freq PRN Reason Stop Dose Admin Dextrose 50 ml 08/24/20 01:20 Dextrose 50% In Water (25gm) 50 Ml Syringe IV Q30MIN PRN Hypoglycemia Protocol Insulin Human Lispro 0 unit 08/24/20 07:30 Insulin Lispro 100 Unit/Ml SUB-Q ACHS [facility] Protocol Midodrine 5 mg 08/24/20 08:00 Midodrine 5 Mg Tab PO 08/24/20 08:01 ONCE ONE Midodrine 5 mg 08/24/20 08:00 Midodrine 5 Mg Tab PO TID@0800,1200,1600 [facility] Morphine Sulfate 2 mg 08/24/20 01:20 08/24/20 05:57 Morphine 2 Mg/1 Ml Inj IV 2 mg Q4H PRN Administration Pain, Moderate (4-6) Ondansetron HCl 4 mg 08/24/20 01:20 Ondansetron 4 Mg/2 Ml Inj IV Q8H PRN Nausea And Vomiting Sodium Chloride 10 ml 08/24/20 10:00 Sodium Chloride 0.9% 10 Ml Flush Syringe IV BID [facility] Sodium Chloride 10 ml 08/24/20 01:20 Sodium Chloride 0.9% 10 Ml Flush Syringe IV PRN PRN LINE FLUSH
[2020-08-24] MEDS: INSULIN LISPRO 100 UNIT/ML SUB-Q SCH ×4 (07:54→21:14)
[2020-08-24] MEDS ORDERED: MIDODRINE 5 MG TAB PO ONE (08:00)
[2020-08-24 08:31] LABS: Hematocrit 37.4 % (30.3-42.9); Hemoglobin 12.5 gm/dl (10.1-14.3); Mean Corpuscular HGB Conc 34 % (30-34); Mean Corpuscular Volume 90 fl (79-97); Platelet Count 207 K/mm3 (140-440); Red Blood Count 4.15 M/mm3 (3.65-5.03)
[2020-08-24 08:42] LABS: Calcium 7.6 mg/dL (8.4-10.2)
--- NOTE | 2020-08-24 11:25 | Consultation ---
History of Present Illness - Reason for Consult Consult date: 08/24/20 Complications of Dialysis Access Requesting physician: TEODORA CRANE - History of Present Illness The patient is a 74-year-old female with a history of end-stage renal disease who is currently on hemodialysis through a right upper extremity AV graft. She was brought to the emergency department with bleeding from the graft resulted in hypotension requiring sutures to control the bleeding as well as transfusions of packed red blood cell to treat the hypotension. She states her graft was placed by the vascular group at [facility] however she has underlying dementia and cannot remember exactly when the graft was placed. I spoke with her daughter who states she was scheduled to have a fistulogram and possible intervention secondary to increased venous pressure and prolonged bleeding however this was unable to be scheduled prior to her bleeding event. The patient complains of pain in her right upper extremity at the shoulder which was injured when she was reportedly dropped during transportation to dialysis. She has no additional complaints at this time. Past History Past Medical History: arthritis, diabetes, dialysis, ESRD, GERD, hypertension, seizures, other (Neuropathy, dementia) Past Surgical History: total hip replacement, Other (Left Vas-Cath, right bicep AV fistula.) Social history: lives with family Family history: no significant family history Medications and Allergies Allergies Allergy/AdvReac Type Severity Reaction Status Date / Time sulfacetamide Allergy Anaphylaxis Verified 03/06/17 00:22 [From Sulfamide] Home Medications Medication Instructions Recorded Confirmed Last Taken Type Apixaban [Eliquis] 5 mg PO BID 03/05/17 08/24/20 Unknown History Colchicine [Colcrys] 0.6 mg PO Q12HR PRN 03/05/17 08/24/20 Unknown History Fluticasone [Flonase] 1 spray NS BID 03/05/17 08/24/20 Unknown History Pantoprazole [Protonix TAB] 20 mg PO QDAY 03/05/17 08/24/20 Unknown History sevelamer HCL [Renagel] 800 mg PO TIDWM 03/05/17 08/24/20 Unknown History Active Meds: Active Medications Dextrose (Dextrose 50% In Water (25gm) 50 Ml Syringe) 50 ml IV Q30MIN PRN; Protocol PRN Reason: Hypoglycemia Insulin Human Lispro (Insulin Lispro 100 Unit/Ml) 0 unit SUB-Q ACHS [facility]; Protocol Last Admin: 08/24/20 07:54 Dose: Not Given Documented by: Midodrine (Midodrine 5 Mg Tab) 5 mg PO TID@0800,1200,1600 [facility] Morphine Sulfate (Morphine 2 Mg/1 Ml Inj) 2 mg IV Q4H PRN PRN Reason: Pain, Moderate (4-6) Last Admin: 08/24/20 05:57 Dose: 2 mg Documented by: Ondansetron HCl (Ondansetron 4 Mg/2 Ml Inj) 4 mg IV Q8H PRN PRN Reason: Nausea And Vomiting Sodium Chloride (Sodium Chloride 0.9% 10 Ml Flush Syringe) 10 ml IV BID [facility] Last Admin: 08/24/20 09:50 Dose: 10 ml Documented by: Sodium Chloride (Sodium Chloride 0.9% 10 Ml Flush Syringe) 10 ml IV PRN PRN PRN Reason: LINE FLUSH Review of Systems All systems: negative Exam - Constitutional Vitals: Temp Pulse Resp BP Pulse Ox 98.0 F 75 11 L 90/41 100 08/24/20 04:00 08/24/20 11:00 08/24/20 11:00 08/24/20 11:00 08/24/20 11:00 General appearance: Present: no acute distress, other (Collateral veins on chest wall) - Respiratory Respiratory effort: normal - Cardiovascular Rhythm: regular - Extremities Extremities: abnormal (Right arm AV graft with 2 slightly ulcerated areas without active bleeding, graft with pulsatility) - Abdominal General gastrointestinal: Present: soft, non-tender, non-distended - Rectal Rectal Exam: deferred - Psychiatric Psychiatric: appropriate mood/affect Results - Labs CBC & Chem 7: 08/24/20 07:47 08/24/20 07:47 Labs: Abnormal lab results 08/23/20 08/23/20 08/23/20 Range/Units 23:18 23:18 23:18 WBC (4.5-11.0) K/mm3 RBC 3.29 L (3.65-5.03) M/mm3 Hgb 9.1 L (10.1-14.3) gm/dl Hct 28.9 L (30.3-42.9) % RDW 18.8 H (13.2-15.2) % [place] % (Auto) 8.5 H (0.0-7.3) % [place] # (Auto) 0.9 H (0.0-0.8) K/mm3 Seg Neutrophils % 71.7 H (40.0-70.0) % PT 22.8 H (12.2-14.9) Sec. INR 1.97 H (0.87-1.13) APTT 54.8 H (24.2-36.6) Sec. Sodium 135 L (137-145) mmol/L Chloride 91.2 L (98-107) mmol/L Carbon Dioxide (22-30) mmol/L Creatinine 3.4 H (0.6-1.2) mg/dL Glucose 156 H (65-100) mg/dL POC Glucose (70-105) mg/dL Calcium 7.9 L (8.4-10.2) mg/dL ALT < 5 L (7-56) units/L Alkaline Phosphatase 589 H (35-129) units/L Total Protein 5.3 L (6.3-8.2) g/dL Albumin 3.0 L (3.9-5) g/dL Crossmatch 08/24/20 08/24/20 08/24/20 Range/Units 00:55 07:29 07:47 WBC 11.7 H (4.5-11.0) K/mm3 RBC (3.65-5.03) M/mm3 Hgb (10.1-14.3) gm/dl Hct (30.3-42.9) % RDW 17.0 H (13.2-15.2) % [place] % (Auto) (0.0-7.3) % [place] # (Auto) (0.0-0.8) K/mm3 Seg Neutrophils % (40.0-70.0) % PT (12.2-14.9) Sec. INR (0.87-1.13) APTT (24.2-36.6) Sec. Sodium (137-145) mmol/L Chloride (98-107) mmol/L Carbon Dioxide (22-30) mmol/L Creatinine (0.6-1.2) mg/dL Glucose (65-100) mg/dL POC Glucose 153 H (70-105) mg/dL Calcium (8.4-10.2) mg/dL ALT (7-56) units/L Alkaline Phosphatase (35-129) units/L Total Protein (6.3-8.2) g/dL Albumin (3.9-5) g/dL Crossmatch See Detail 08/24/20 Range/Units 07:47 WBC (4.5-11.0) K/mm3 RBC (3.65-5.03) M/mm3 Hgb (10.1-14.3) gm/dl Hct (30.3-42.9) % RDW (13.2-15.2) % [place] % (Auto) (0.0-7.3) % [place] # (Auto) (0.0-0.8) K/mm3 Seg Neutrophils % (40.0-70.0) % PT (12.2-14.9) Sec. INR (0.87-1.13) APTT (24.2-36.6) Sec. Sodium 133 L (137-145) mmol/L Chloride 96.6 L (98-107) mmol/L Carbon Dioxide 18 L (22-30) mmol/L Creatinine 3.3 H (0.6-1.2) mg/dL Glucose 156 H (65-100) mg/dL POC Glucose (70-105) mg/dL Calcium 7.6 L (8.4-10.2) mg/dL ALT (7-56) units/L Alkaline Phosphatase (35-129) units/L Total Protein (6.3-8.2) g/dL Albumin (3.9-5) g/dL Crossmatch Assessment and Plan The patient is a 74-year-old female with a history of end-stage renal disease who was brought to the emergency department with bleeding from her right arm arteriovenous graft. She is in need of a diagnostic fistulogram with possible intervention to relieve a venous outflow obstruction. There are multiple collat eral veins on the chest wall to suggest that she may have a central venous obstruction. I have discussed the risk, benefits, and alternative procedures with her daughter who has consented to the procedure. I will proceed with the fistulogram and intervention today.
--- NOTE | 2020-08-24 11:41 | Event Note ---
Date: 08/24/20 I called patient's daughter Ms. Kerri Elias at [phone] and discussed in detail Patient's condition, tests and reports consultants recommendation, and treatment plan. Patient had many questions, I answered all of them and encouraged her to call back if she has any new concerns .
[2020-08-24] MEDS ORDERED: MIDODRINE 5 MG TAB PO SCH (12:00)
[2020-08-24] MEDS ORDERED: SODIUM CHLORIDE 0.9% 500 ML 500 ML ONE ×2 (12:08→14:31)
[2020-08-24] MEDS ORDERED: HEPARIN/NS 5000 UNIT/500ML 1,000 ML IR ONE (12:08)
[2020-08-24] MEDS ORDERED: HEPARIN 10,000 UNITS/10 ML VIAL ONE (12:08)
--- NOTE | 2020-08-24 12:13 | Consultation ---
History of Present Illness Consult date: 08/24/20 Requesting physician: SHAMIR HEARD Reason for consult: other (Hemorrhagic Shock) History of present illness: PULMONARY/CCM CONSULT NOTE (Full dictation # [id number]) Please see dictated notes for full details Past History Past Medical History: arthritis, diabetes, dialysis, ESRD, GERD, hypertension, seizures, other (Neuropathy, dementia) Past Surgical History: total hip replacement, Other (Left Vas-Cath, right bicep AV fistula.) Social history: lives with family Family history: no significant family history Medications and Allergies Allergies Allergy/AdvReac Type Severity Reaction Status Date / Time sulfacetamide Allergy Anaphylaxis Verified 03/06/17 00:22 [From Sulfamide] Home Medications Medication Instructions Recorded Confirmed Last Taken Type Apixaban [Eliquis] 5 mg PO BID 03/05/17 08/24/20 Unknown History Colchicine [Colcrys] 0.6 mg PO Q12HR PRN 03/05/17 08/24/20 Unknown History Fluticasone [Flonase] 1 spray NS BID 03/05/17 08/24/20 Unknown History Pantoprazole [Protonix TAB] 20 mg PO QDAY 03/05/17 08/24/20 Unknown History sevelamer HCL [Renagel] 800 mg PO TIDWM 03/05/17 08/24/20 Unknown History Acetaminophen 650 mg PO Q6HR PRN 08/24/20 08/24/20 Unknown History Cholecalciferol (Vitamin D3) 50,000 unit PO 1XW 08/24/20 08/24/20 Unknown History Cinacalcet HCl [Sensipar] 30 mg PO DAILY 08/24/20 08/24/20 Unknown History DUONEB *Not for PRN Use* 1 neb INHALATION PRN 08/24/20 Unknown History Insulin Glargine,Hum.rec.anlog 10 units SUB-Q QHS 08/24/20 08/24/20 Unknown History [Semglee] Insulin Lispro [Admelog] See Protocol SQ ACHS 08/24/20 08/24/20 Unknown History Lidocaine [Lidoderm] DAILY 08/24/20 Unknown History Multivitamin Tab W-MINERAL 1 each PO DAILY 08/24/20 08/24/20 Unknown History [Multiple Vitamin/Mineral (Theragran M)] Ramelteon [Rozerem] 8 mg PO QHS 08/24/20 08/24/20 Unknown History lamoTRIgine [LaMICtal] 100 mg PO Q12HR 08/24/20 08/24/20 Unknown History Active Meds: Active Medications Dextrose (Dextrose 50% In Water (25gm) 50 Ml Syringe) 50 ml IV Q30MIN PRN; Pro tocol PRN Reason: Hypoglycemia Insulin Human Lispro (Insulin Lispro 100 Unit/Ml) 0 unit SUB-Q ACHS [facility]; Protocol Last Admin: 08/24/20 07:54 Dose: Not Given Documented by: Midodrine (Midodrine 5 Mg Tab) 5 mg PO TID@0800,1200,1600 [facility] Morphine Sulfate (Morphine 2 Mg/1 Ml Inj) 2 mg IV Q4H PRN PRN Reason: Pain, Moderate (4-6) Last Admin: 08/24/20 05:57 Dose: 2 mg Documented by: Ondansetron HCl (Ondansetron 4 Mg/2 Ml Inj) 4 mg IV Q8H PRN PRN Reason: Nausea And Vomiting Sodium Chloride (Sodium Chloride 0.9% 10 Ml Flush Syringe) 10 ml IV BID [facility] Last Admin: 08/24/20 09:50 Dose: 10 ml Documented by: Sodium Chloride (Sodium Chloride 0.9% 10 Ml Flush Syringe) 10 ml IV PRN PRN PRN Reason: LINE FLUSH Physical Examination Vital signs: Vital Signs Temp Pulse BP 97.4 F L 84 95/50 08/23/20 22:46 08/23/20 22:46 08/23/20 22:46 Results - Laboratory Findings CBC and BMP: 08/24/20 07:47 08/24/20 07:47 PT/INR, D-dimer PT 22.8 Sec. (12.2-14.9) H 08/23/20 23:18 INR 1.97 (0.87-1.13) H 08/23/20 23:18 Abnormal lab findings: Abnormal Labs 08/23/20 08/23/20 08/23/20 23:18 23:18 23:18 WBC RBC 3.29 L Hgb 9.1 L Hct 28.9 L RDW 18.8 H [place] % (Auto) 8.5 H [place] # (Auto) 0.9 H Seg Neutrophils % 71.7 H PT 22.8 H INR 1.97 H APTT 54.8 H Sodium 135 L Chloride 91.2 L Carbon Dioxide Creatinine 3.4 H Glucose 156 H POC Glucose Calcium 7.9 L ALT < 5 L Alkaline Phosphatase 589 H Total Protein 5.3 L Albumin 3.0 L Crossmatch 08/24/20 08/24/20 08/24/20 00:55 07:29 07:47 WBC 11.7 H RBC Hgb Hct RDW 17.0 H [place] % (Auto) [place] # (Auto) Seg Neutrophils % PT INR APTT Sodium Chloride Carbon Dioxide Creatinine Glucose POC Glucose 153 H Calcium ALT Alkaline Phosphatase Total Protein Albumin Crossmatch See Detail 08/24/20 07:47 WBC RBC Hgb Hct RDW [place] % (Auto) [place] # (Auto) Seg Neutrophils % PT INR APTT Sodium 133 L Chloride 96.6 L Carbon Dioxide 18 L Creatinine 3.3 H Glucose 156 H POC Glucose Calcium 7.6 L ALT Alkaline Phosphatase Total Protein Albumin Crossmatch
[2020-08-24] MEDS: MIDAZOLAM 2 MG/2 ML INJ ONE ×2 (12:16→12:29)
[2020-08-24] MEDS: fentaNYL 100 MCG/2 ML INJ ONE ×3 (12:16→13:08)
[2020-08-24] MEDS: LIDOCAINE (2%) 20 MG/1 ML VIAL 20 ML MDV INFILTRATI ONE ×2 (12:16→12:31)
--- NOTE | 2020-08-24 14:42 | Operative Report ---
Operative Report Operative Report: Date of Procedure: 08/24/2020 Pre-operative Diagnosis: Complications of Dialysis Access Post-operative Diagnosis: Same Procedure(s): 1. Access Right Arm AV Graft with 7 Welsh Sheath Venous 2. Diagnostic Fistulogram with Central Venogram 3. Angioplasty and Stent of Right Arm AV Graft with 8 x 40 Conquest Balloon And 8 x 60 Covera Stent Graft 4. Angioplasty and Stent of Right Subclavian Vein with 12 x 40 Conquest Balloon, 12 x 80 Fluency Stent Graft, and 14 x 60 Protg Self-Expanding Stent 5. Radiologic Supervision with Interpretation 6. Monitored Moderate Sedation (Total Anesthesia Time: 69 Minutes) Surgeon: Barrett Gutierrez M.D. Farmworker Bulbs: None Anesthesia: Local/Monitored Moderate Sedation Total Anesthesia Time: 69 Minutes EBL: Minimal Counts: Correct Complications: None Condition: Stable Specimen: None Indication: The patient is a 74-year-old female with a history of end-stage renal disease who is currently on hemodialysis through a right arm AV graft. She presented with prolonged bleeding from the graft requiring sutures to control the bleeding and transfusion of 2 units of packed red blood cells to treat her hypotension. She is in need of a diagnostic fistulogram with possible intervention to treat her venous outflow stenosis. She was given the risk, benefits, and alternative procedures and consented to the procedure. Angiographic Findings: The diagnostic fistulogram demonstrated approximately 30% stenosis in a short segment in the cannulation zone of the fistula however this appeared to be secondary to external compression from the sutures that were placed to control the bleeding. There was a 99% stenosis at the venous anastomosis of the graft. There was 75% stenosis of the subclavian vein. In the remainder the central venous system was patent without evidence of flow-limiting stenosis. After intervention the stenosis at the venous anastomosis was reduced to less than 10% residual stenosis. The stenosis in the subclavian vein was reduced to less than 10% residual stenosis. Description of Procedure: The patient was brought to the [employer] and laid in supine position. After a timeout was performed her right arm was prepped and draped in normal sterile fashion. Lidocaine was used to anesthetize the skin and soft tissue overlying the graft near the arterial inflow and a 21-gauge micropuncture needle was used access the graft towards the venous outflow. I advanced a 0.018 micropuncture wire into the graft and after removing the needle a 7 Welsh sheath was placed by Seldinger technique. A diagnostic fistulogram with central venogram was performed to previously described findings. A vertebral catheter and 0.035 Bentson wire were advanced through the stenosis and eventually into the inferior vena cava under fluoroscopy. I initially performed angioplasty of the stenosis of the venous anastomosis using an 8 x 40 [place] Balloon and this resulted in approximately 70% residual stenosis. I decided to place a stent across the area and use a high-pressure balloon so I exchanged the 7 Welsh sheath for 8 Welsh 11 cm sheath and advanced an 8 x 60 Covera stent graft across the area of stenosis. I deployed the stent graft and then postdilated the stent graft with an 8 x 40 Conquest Balloon with a result of less than 10% residual stenosis. I then performed angioplasty of the subclavian stenosis with a 12 x 40 Conquest Balloon with a result of complete recoil of the stenosis so I decided to place a stent in this area as well. I remove the 8 Welsh sheath and advanced a 12 x 80 Fluency Stent Graft, bareback, into position and deployed it. I removed the delivery catheter and replaced the 8 Welsh sheath. I postdilated the fluency stent graft with a 12 x 40 Conquest Balloon. During the angioplasty the stent graft was slightly pulled back across the proximal landing zone resulting in the outflow of the stent graft abutting the medial wall of the innominate vein. I attempted to use the Conquest Balloon to adjust the stent graft without success so I deployed a 14 x 60 Protg Self-Expanding Stent with approximately 2 cm extending into the innominate vein. I postdilated the stent as well as the overlap with the 12 x 40 Conquest Balloon and this resulted in brisk flow of contrast throughout the graft and the subclavian vein with less than 10% residual stenosis. At this point I removed the wires and catheters I used 3-0 Vicryl in pursestring fashion to close the entry site after removing the sheath. A sterile dressing was then applied to the entry site and the patient was transported back to the intensive care unit in stable condition.
[2020-08-24] MEDS ORDERED: SODIUM CHLORIDE 0.9% 500 ML 500 ML IV SCH (15:00)
[2020-08-24] MEDS: MIDODRINE 5 MG TAB PO SCH (15:39)
--- NOTE | 2020-08-24 16:01 | Consultation ---
History of Present Illness - Reason for Consult Consult date: 08/24/20 end stage renal disease - History of Present Illness This is a 74 year-old woman with ESRD who presents for bleeding from AVF Patient usually dialyzes // at [facility]. Last HD yesterday. Denies any recent issues with HD, including dizziness, lightheadedness, cramping, chest pain on HD. Had bleeding after HD during transportation Currently, patient denies any issues including dyspnea, edema, access issues, nausea, vomiting, headaches. Past History Past Medical History: arthritis, diabetes, dialysis, ESRD, GERD, hypertension, seizures, other (Neuropathy, dementia) Past Surgical History: total hip replacement, Other (Left Vas-Cath, right bicep AV fistula.) Social history: lives with family Family history: no significant family history Medications and Allergies Allergies Allergy/AdvReac Type Severity Reaction Status Date / Time sulfacetamide Allergy Anaphylaxis Verified 03/06/17 00:22 [From Sulfamide] Home Medications Medication Instructions Recorded Confirmed Last Taken Type Apixaban [Eliquis] 5 mg PO BID 03/05/17 08/24/20 Unknown History Colchicine [Colcrys] 0.6 mg PO Q12HR PRN 03/05/17 08/24/20 Unknown History Fluticasone [Flonase] 1 spray NS BID 03/05/17 08/24/20 Unknown History Pantoprazole [Protonix TAB] 20 mg PO QDAY 03/05/17 08/24/20 Unknown History sevelamer HCL [Renagel] 800 mg PO TIDWM 03/05/17 08/24/20 Unknown History Acetaminophen 650 mg PO Q6HR PRN 08/24/20 08/24/20 Unknown History Cholecalciferol (Vitamin D3) 50,000 unit PO 1XW 08/24/20 08/24/20 Unknown Histo ry Cinacalcet HCl [Sensipar] 30 mg PO DAILY 08/24/20 08/24/20 Unknown History DUONEB *Not for PRN Use* 1 neb INHALATION PRN 08/24/20 Unknown History Insulin Glargine,Hum.rec.anlog 10 units SUB-Q QHS 08/24/20 08/24/20 Unknown History [Semglee] Insulin Lispro [Admelog] See Protocol SQ ACHS 08/24/20 08/24/20 Unknown History Lidocaine [Lidoderm] DAILY 08/24/20 Unknown History Multivitamin Tab W-MINERAL 1 each PO DAILY 08/24/20 08/24/20 Unknown History [Multiple Vitamin/Mineral (Theragran M)] Ramelteon [Rozerem] 8 mg PO QHS 08/24/20 08/24/20 Unknown History lamoTRIgine [LaMICtal] 100 mg PO Q12HR 08/24/20 08/24/20 Unknown History Active Meds: Active Medications Dextrose (Dextrose 50% In Water (25gm) 50 Ml Syringe) 50 ml IV Q30MIN PRN; Protocol PRN Reason: Hypoglycemia Famotidine (Famotidine 20 Mg Tab) 20 mg PO QHS [facility] Sodium Chloride (Nacl 0.9% 500 Ml) 500 mls @ 999 mls/hr IV ONCE [facility] Stop: 08/24/20 18:00 Insulin Human Lispro (Insulin Lispro 100 Unit/Ml) 0 unit SUB-Q ACHS RITESH; Protocol Last Admin: 08/24/20 12:30 Dose: Not Given Documented by: Midodrine (Midodrine 5 Mg Tab) 10 mg PO TID@0800,1200,1600 [facility] Last Admin: 08/24/20 15:39 Dose: 10 mg Documented by: Morphine Sulfate (Morphine 2 Mg/1 Ml Inj) 2 mg IV Q4H PRN PRN Reason: Pain, Moderate (4-6) Last Admin: 08/24/20 14:32 Dose: 2 mg Documented by: Ondansetron HCl (Ondansetron 4 Mg/2 Ml Inj) 4 mg IV Q8H PRN PRN Reason: Nausea And Vomiting Sodium Chloride (Sodium Chloride 0.9% 10 Ml Flush Syringe) 10 ml IV BID [facility] Last Admin: 08/24/20 09:50 Dose: 10 ml Documented by: Sodium Chloride (Sodium Chloride 0.9% 10 Ml Flush Syringe) 10 ml IV PRN PRN PRN Reason: LINE FLUSH Review of Systems All systems: negative (as per HPI) Exam - Vital Signs Vital signs: Vital Signs Temp Pulse BP 97.4 F L 84 95/50 08/23/20 22:46 08/23/20 22:46 08/23/20 22:46 - Physical Exam Narrative exam: Constitutional: no acute distress Head: NC/AT Neck: supple Lungs: clear to auscultation CV: RRR, no M/R/G Abdomen: soft, non-tender, bowel sounds present Back: nontender Extremities: no edema, pulses WNL, collateral veins noted, AVF wrapped Skin: intact Neuro: no focal deficits, alert and oriented x4 Results - Lab Results 08/24/20 07:47 08/24/20 07:47 Most recent lab results Calcium 7.6 mg/dL (8.4-10.2) L 08/24/20 07:47 Assessment and Plan This is a 74 year old woman who presents with AVF bleeding # ESRD: plan to continue HD // once access cleared by vascular; no indication for HD today per labs/volume - daily labs - renally dose meds - avoid nephrotoxins - renal diet # AVF Bleeding: appreciate Dr. Gutierrez/vascular # Anemia: last hemoglobin stable, ESAs with HD prn, bleeding stopped # Hypotension: UF as tolerated. BP soft, on midodrine currently # Secondary Hyperparathyroidism: continue home binders as needed # Hypoalbuminemia: nutrition as able
[2020-08-24] MEDS ORDERED: SODIUM CHLORIDE 0.9% 100 ML IV PRN (16:05)
[2020-08-24] MEDS ORDERED: COLCHICINE 0.6 MG TAB PO PRN (16:27)
[2020-08-24] MEDS ORDERED: CHOLECALCIFEROL 50000 UNIT PO SCH (16:30)
[2020-08-24] MEDS ORDERED: SEVELAMER HCL 800 MG PO SCH (17:00)
[2020-08-24] MEDS: SEVELAMER CARBONATE 800 MG TAB PO SCH (18:31)
[2020-08-24] MEDS: FLUTICASONE PROPIONATE NASAL SPRAY 16 GM NS SCH ×2 (21:06→21:10)
[2020-08-24] MEDS: FAMOTIDINE 20 MG TAB PO SCH ×2 (21:06→21:10)
[2020-08-24] MEDS: lamoTRIgine 100 MG TAB PO SCH ×2 (21:07→21:09)
--- NOTE | 2020-08-25 01:12 | Consultation ---
DATE OF CONSULTATION: 08/24/2020 PULMONARY CRITICAL CARE CONSULTATION CONSULTING PHYSICIAN: Dr. Levi Guillen. REASON FOR CONSULTATION: Shock presumed secondary to bleeding from AV graft, hemorrhagic shock. CHIEF COMPLAINT AND HISTORY OF PRESENT ILLNESS: The patient is a 74-year-old obese female with past medical history significant for a diagnosis of end-stage renal disease on dialysis, but also a history of a pulmonary embolism in the past, who came into the Emergency Room complaining of bleeding from her right upper extremity AV fistula. She was resident of the care home [facility] where she is undergoing rehabilitation for fractures, I believe to the lower extremity and upper extremity. She was currently taking apixaban, Eliquis 5 mg I believe daily and they found her bleeding from the fistula site. In the ER, she was hypotensive at blood pressure 90/40. Discussions were had with Vascular Surgery and fistula was sutured by the ER physician. She was seen by the vascular surgeon today and is scheduled to move to the test lab technician. When I stopped by to see actually she had just come back from the test lab technician, she complains of pain all over. There was no bleeding from the fistula site. No more gross active bleeding; however, she remained hypotensive. She denied any cough or hemoptysis. She denied fevers or chills. This really is as much of the history of presentation as I have. She also denies any loss of consciousness, but could not really explain her falls to me. PAST MEDICAL HISTORY: Again, arthritis, diabetes, end-stage renal disease on dialysis. She is obese. Gastroesophageal reflux disease, history of hypertension, history of seizure disorder and history of dementia. PAST SURGICAL HISTORY: She has had a right biceps AV fistula. I believe she has had a left Vas Cath in the past and she has had a total hip replacement. MEDICATIONS: She was on at the time I stopped by to see were reviewed. Pertinent medications include the following: Pepcid 20 mg p.o. at bedtime, insulin via sliding scale, midodrine 5 mg p.o. t.i.d., morphine sulfate 2 mg IV q.4 hours p.r.n. moderate pain, Zofran 4 mg IV q.8 hours p.r.n. nausea and vomiting. ALLERGIES: SULFACETAMIDE, NATURE OF THIS ALLERGY IS UNKNOWN. DIET: Obese lady. Denies acute weight loss or gain in the preceding few weeks to months. SOCIAL HISTORY: Living in a rehab care home facility right now. No current alcohol, tobacco or illicit drug use or abuse. Remote history is unclear. FAMILY HISTORY: Otherwise unknown. REVIEW OF SYSTEMS: Difficult to obtain secondary to her medical and mental condition. Since she has been here, no gross hematochezia or melena, no gross hematuria, no hematemesis, no hemoptysis. There was some bleeding reported from the AV fistula at presentation. She denies chest pain. Complete 13 system review of systems was obtained as best as I could. Pertinent positives and/or negatives as in the body of history above, otherwise noncontributory. PHYSICAL EXAMINATION: VITAL SIGNS: At presentation, she was afebrile, temperature 97.4 degrees Fahrenheit, pulse was 84, respiratory rate 20, blood pressure 95/50, O2 sats were not recorded. When I saw her O2 sats were 98% on 3 liters nasal cannula. GENERAL: She is an elderly looking obese female. Normocephalic, resting in bed with mildly increased respiratory effort at rest. HEAD, EYES, EARS, NOSE AND THROAT: Anicteric. No conjunctival erythema. Oropharynx was dry. She had a high Mallampati score, but difficult to examine. No gross jugular venous distention. She does have a large neck circumference. Grossly, there were no palpable lymph nodes in the supraclavicular or submandibular lymph node chains. LUNGS: Auscultation of both lung velazquez revealed clear bilateral lung velazquez with good bilateral air movement. No wheezing. HEART: Sounds 1 and 2 are heard. There were regular rate and rhythm at the time of my evaluation without overt rubs or murmurs. ABDOMEN: Soft, full, protuberant. Bowel sounds are positive, nontender, no palpable hepatosplenomegaly. EXTREMITIES: Without overt digital clubbing and no cyanosis. She does have immobilizer of the left lower extremity. There appears to be some medial deviation of the left foot. It is a little tender to touch. Pedal pulses were palpable in both lower extremities and the extremities were warm. NEUROLOGIC: Pupils are equal, round, about 3 mm, reactive to light. Extraocular muscle movements were intact. She had movement of all four extremities. SKIN: Normal turgor in the areas I examined. She did have a right upper extremity fistula that had a clean white dressing over it. Please see the wound care nurses' notes for full description of her skin. PSYCHIATRIC: Mood and affect were somewhat anxious. She had very poor judgment and insight. LABORATORY DATA: From my review are as follows: Admission white cell count 10,100; hemoglobin 9.1; hematocrit 28.9; platelet count 360. INR 1.97. Serum sodium 135, potassium 4.0, chloride 91, bicarbonate 22, BUN 14, creatinine 3.4, glucose 156. Liver function tests essentially within normal limits. Albumin was low at 3.0. Coronavirus PCR has come back negative. I do not have any radiographic studies for my review. ASSESSMENT: 1. Acute Hypoxemic respiratory failure on supplemental oxygen. 2. Hemorrhagic shock. 3. End-stage renal disease, on dialysis. 4. Malfunctioning right upper extremity arteriovenous graft. 5. Diabetes. 6. History of pulmonary embolism. 7. Seizure disorder. 8. Dementia. 9. Obesity. 10. Anemia that is normocytic. 11. Coagulopathy. 12. History of seizure disorder. 13. History of gout. 14. History of sleep apnea. PLAN: I do feel that she will benefit from volume resuscitation. She is on 3 liters of oxygen, but a good saturation on 3 liters. She also has a history of sleep apnea. I will be planning to support her with noninvasive ventilation at night and if she develops respiratory distress, I will bolus 500 mL of normal saline now to improve blood pressure. I will also increase the midodrine to 10 mg t.i.d. with hold parameters for systolic blood pressures greater than 120. No indication for vasopressors at this point. Oxygen will be weaned to keep sats greater than or equal to about 90%. Aspiration precautions will be maintained. Bronchodilators will be on a p.r.n. basis. I will defer to the vascular team in terms of resumption of full anticoagulation for now. The INR is pretty much therapeutic. I would not be started on DVT prophylaxis doses of medication. Flu and pneumonia vaccination will be addressed per protocol. Aspiration precautions will be maintained. Electrolytes were monitored and corrected as necessary. No acute indication for antibiotic therapy at this point. I will begin a chest x-ray. Consideration will be given for an arterial blood gas. She is on GI prophylaxis. She will be placed on sequential compression devices, pain control will be dependent on her pain score. Flu and pneumonia will be addressed per protocol. Thank you very much for the consult. We will follow along and make further recommendations as picture progresses/becomes clearer. She is critically ill on life-sustaining interventions including supplemental oxygen and now about to be started on vasopressors at very high risk of from cardiopulmonary system decompensation. At this time was spent about 35-40 minutes of critical care time without overlap and excluding any procedural time that may be necessary. TID: [id number] RECEIPT: [id number] DOMO/WILDRE BOURNE
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
--- NOTE | 2020-08-25 09:37 | Progress Note ---
Assessment and Plan This is a 74 year old woman who presents with AVF bleeding # ESRD: plan to continue HD //, now s/p angioplasty per Dr. Gutierrez, plan f or HD today - daily labs - renally dose meds - avoid nephrotoxins - renal diet # AVF Bleeding: appreciate Dr. Gutierrez/vascular # Anemia: last hemoglobin stable, ESAs with HD prn # Hypotension: UF as tolerated. BP soft, on midodrine currently # Secondary Hyperparathyroidism: continue home binders as needed # Hypoalbuminemia: nutrition as able Subjective Date of service: 08/25/20 Interval history: S/p OR yesterday per Dr. Gutierrez, no acute changes today Objective - Exam Narrative Exam: Constitutional: no acute distress Head: NC/AT Neck: supple Lungs: clear to auscultation CV: RRR, no M/R/G Abdomen: soft, non-tender, bowel sounds present Back: nontender Extremities: no edema, pulses WNL, collateral veins noted, AVF wrapped Skin: intact Neuro: no focal deficits, alert and oriented x4 - Vital Signs Vital signs: Vital Signs - 12hr 08/24/20 08/24/20 08/24/20 22:00 22:31 23:01 Temperature Pulse Rate 70 63 67 Respiratory 17 18 12 Rate Blood Pressure 102/29 99/37 109/36 O2 Sat by Pulse 100 84 66 L Oximetry 08/24/20 08/24/20 08/25/20 23:03 23:30 00:00 Temperature 97.7 F Pulse Rate 68 66 65 Respiratory 16 14 12 Rate Blood Pressure 109/36 113/39 104/36 O2 Sat by Pulse 96 100 Oximetry 08/25/20 08/25/20 08/25/20 01:01 02:00 03:01 Temperature Pulse Rate 66 64 64 Respiratory 13 12 12 Rate Blood Pressure 98/36 102/39 120/38 O2 Sat by Pulse 100 100 100 Oximetry 08/25/20 08/25/20 08/25/20 04:00 04:01 05:01 Temperature 97.6 F Pulse Rate 65 62 Respiratory 20 11 L 13 Rate Blood Pressure 108/38 103/41 O2 Sat by Pulse 98 100 Oximetry 08/25/20 08/25/20 06:00 08:00 Temperature 97.5 F L Pulse Rate 67 Respiratory 14 Rate Blood Pressure 119/45 O2 Sat by Pulse 100 Oximetry - Lab 08/24/20 07:47 08/24/20 07:47 Most recent lab results Calcium 7.6 mg/dL (8.4-10.2) L 08/24/20 07:47 Medications & Allergies - Medications Allergies/Adverse Reactions: Allergies sulfacetamide [From Sulfamide] Allergy (Verified 03/06/17 00:22) Anaphylaxis Home Medications: Home Medications Medication Instructions Recorded Confirmed Last Taken Type Apixaban [Eliquis] 5 mg PO BID 03/05/17 08/24/20 Unknown History Colchicine [Colcrys] 0.6 mg PO Q12HR PRN 03/05/17 08/24/20 Unknown History Fluticasone [Flonase] 1 spray NS BID 03/05/17 08/24/20 Unknown History Pantoprazole [Protonix TAB] 20 mg PO QDAY 03/05/17 08/24/20 Unknown History sevelamer HCL [Renagel] 800 mg PO TIDWM 03/05/17 08/24/20 Unknown History Acetaminophen 650 mg PO Q6HR PRN 08/24/20 08/24/20 Unknown History Cholecalciferol (Vitamin D3) 50,000 unit PO 1XW 08/24/20 08/24/20 Unknown History Cinacalcet HCl [Sensipar] 30 mg PO DAILY 08/24/20 08/24/20 Unknown History DUONEB *Not for PRN Use* 1 neb INHALATION PRN 08/24/20 Unknown History Insulin Glargine,Hum.rec.anlog 10 units SUB-Q QHS 08/24/20 08/24/20 Unknown History [Semglee] Insulin Lispro [Admelog] See Protocol SQ ACHS 08/24/20 08/24/20 Unknown History Lidocaine [Lidoderm] DAILY 08/24/20 Unknown History Multivitamin Tab W-MINERAL 1 each PO DAILY 08/24/20 08/24/20 Unknown History [Multiple Vitamin/Mineral (Theragran M)] Ramelteon [Rozerem] 8 mg PO QHS 08/24/20 08/24/20 Unknown History lamoTRIgine [LaMICtal] 100 mg PO Q12HR 08/24/20 08/24/20 Unknown History Active Medications: Generic Name Dose Route Start Last Admin Trade Name Freq PRN Reason Stop Dose Admin Cinacalcet 30 mg 08/25/20 10:00 Cinacalcet 30 Mg Tab PO DAILY [facility] Colchicine 0.6 mg 08/24/20 16:27 Colchicine 0.6 Mg Tab PO Q12HR PRN Gout Dextrose 50 ml 08/24/20 01:20 Dextrose 50% In Water (25gm) 50 Ml Syringe IV Q30MIN PRN Hypoglycemia Protocol Ergocalciferol 50,000 unit 08/31/20 10:00 Ergocalciferol (Vit D2) 50,000 Unit Cap PO We [facility] Famotidine 20 mg 08/24/20 22:00 08/24/20 21:10 Famotidine 20 Mg Tab PO Not Given QHS [facility] Fluticasone Propionate 50 mcg 08/24/20 22:00 08/24/20 21:10 Fluticasone Propionate Nasal [place] 16 Gm NS Not Given BID [facility] Sodium Chloride 100 mls @ 999 mls/hr 08/24/20 16:05 Nacl 0.9% IV FAUSTINA PRN Hypotension Insulin Human Lispro 0 unit 08/24/20 07:30 08/24/20 21:14 Insulin Lispro 100 Unit/Ml SUB-Q Not Given ACHS [facility] Protocol Lamotrigine 100 mg 08/24/20 22:00 08/24/20 21:09 Lamotrigine 100 Mg Tab PO Not Given Q12HR [facility] Midodrine 10 mg 08/24/20 15:49 08/24/20 15:39 Midodrine 5 Mg Tab PO 10 mg TID@0800,1200,1600 [facility] Administration Morphine Sulfate 2 mg 08/24/20 01:20 08/24/20 23:47 Morphine 2 Mg/1 Ml Inj IV 2 mg Q4H PRN Administration Pain, Moderate (4-6) Multivitamins/Minerals 1 each 08/25/20 10:00 Multivitamins,Ther W-Minerals Tab PO DAILY [facility] Ondansetron HCl 4 mg 08/24/20 01:20 Ondansetron 4 Mg/2 Ml Inj IV Q8H PRN Nausea And Vomiting Sevelamer Carbonate 800 mg 08/24/20 18:00 08/24/20 18:31 Sevelamer Carbonate 800 Mg Tab PO 800 mg AC RITESH Administration Sodium Chloride 10 ml 08/24/20 10:00 08/24/20 21:07 Sodium Chloride 0.9% 10 Ml Flush Syringe IV 10 ml BID RITESH Administration Sodium Chloride 10 ml 08/24/20 01:20 Sodium Chloride 0.9% 10 Ml Flush Syringe IV PRN PRN LINE FLUSH
[2020-08-25] MEDS: SEVELAMER CARBONATE 800 MG TAB PO SCH ×3 (09:53→16:38)
[2020-08-25] MEDS: CINACALCET 30 MG TAB PO SCH (09:53)
[2020-08-25] MEDS: MIDODRINE 5 MG TAB PO SCH ×3 (09:54→16:40)
[2020-08-25] MEDS: MORPHINE 2 MG/1 ML INJ IV PRN (09:56)
[2020-08-25] MEDS: MULTIVITAMINS,THER W-MINERALS TAB PO SCH (09:57)
[2020-08-25] MEDS: lamoTRIgine 100 MG TAB PO SCH (09:58)
[2020-08-25] MEDS: FLUTICASONE PROPIONATE NASAL SPRAY 16 GM NS SCH (09:58)
--- NOTE | 2020-08-25 10:36 | Event Note ---
Patient follows with Dr. Carr for ESRD needs, will change consult to his name
[2020-08-25 11:04] LABS: Hepatitis B Surface Antigen Non-Reactive (Negative); Hepatitis C Virus Antibody Non-Reactive (NonReactive)
[2020-08-25 11:14] LABS: Calcium 7.8 mg/dL (8.4-10.2)
--- NOTE | 2020-08-25 15:44 | Progress Note ---
Assessment and Plan Acute Hypoxemic respiratory failure Hemorrhagic shock ESRD on dialysis Malfunctioning right upper extremity arteriovenous graft DM II H/O pulmonary embolism Seizure disorder Dementia Obesity Anemia that is normocytic Coagulopathy Gout History of sleep apnea - continue HD/UF for toxin and volume clearance - continue Midodrine for BP support - continue accuchecks with glycemic control per SSI for target blood glucose of < 180 mg/dL; avoid hypoglycemia - continue to wean supplemental oxygen for target O2 sat's > 90% acutely - Aspiration precautions - prn bronchodilators with pulmonary hygiene per RT - avoid nephrotoxins, renally dose all medications - continue to avoid benzodiazepine's, reduce the possibility of delirium - AB's per ID rec's - prn analgesia per pain score - Maintenance of sleep-wake cycle, avoid delirium - G.I. & VTE prophylaxis - PT/OT/ROM exercises - mobility protocols for pressure ulcer prophylaxis - Monitor hemodynamics closely - continue other care per attending / other consultants - discharge planning ongoing concurrently COVID SPECIFIC INTERVENTIONS - COVID-19 PCR negative .... Re-evaluate in am & prn .... ok to transfer to medical floor Subjective Date of service: 08/25/20 Principal diagnosis: Ac. Hypoxemic resp failure; Hemorrhagic shock; TRACEE; Malfu nctioning AV graft Interval history: Patient is seen today for: Acute Hypoxemic respiratory failure; Hemorrhagic shock; TRACEE on dialysis; Malfunctioning right upper extremity arteriovenous graft; DM II; H/O pulmonary embolism; TERENCE; Seizure disorder Seen and examined at bedside; 24hour events reviewed; nursing and respiratory care staff consulted; no adverse overnight events reported to me; resting in bed; looks and feels better; denies chest pain or palpitations; BP's stable. Objective Vital Signs - 12hr 08/25/20 08/25/20 08/25/20 04:00 04:01 05:01 Temperature 97.6 F Pulse Rate 65 62 Pulse Rate [ From Monitor] Respiratory 20 11 L 13 Rate Blood Pressure 108/38 103/41 O2 Sat by Pulse 98 100 Oximetry O2 Sat by Pulse Oximetry [ Bilateral Throughout] 08/25/20 08/25/20 08/25/20 06:00 07:01 08:00 Temperature 97.5 F L Pulse Rate 67 64 67 Pulse Rate [ 67 From Monitor] Respiratory 14 13 13 Rate Blood Pressure 119/45 95/36 98/24 O2 Sat by Pulse 100 100 100 Oximetry O2 Sat by Pulse Oximetry [ Bilateral Throughout] 08/25/20 08/25/20 08/25/20 09:01 10:00 10:33 Temperature 97.5 F L Pulse Rate 81 77 80 Pulse Rate [ From Monitor] Respiratory 17 11 L 14 Rate Blood Pressure 109/22 110/35 110/35 O2 Sat by Pulse 96 99 Oximetry O2 Sat by Pulse 98 Oximetry [ Bilateral Throughout] 08/25/20 08/25/20 08/25/20 10:38 10:45 11:00 Temperature Pulse Rate 68 63 67 Pulse Rate [ From Monitor] Respiratory Rate Blood Pressure 115/28 99/33 98/35 O2 Sat by Pulse Oximetry O2 Sat by Pulse Oximetry [ Bilateral Throughout] 08/25/20 08/25/20 08/25/20 11:01 11:15 11:30 Temperature Pulse Rate 67 63 65 Pulse Rate [ From Monitor] Respiratory 18 Rate Blood Pressure 98/35 98/32 96/41 O2 Sat by Pulse 100 Oximetry O2 Sat by Pulse Oximetry [ Bilateral Throughout] 08/25/20 08/25/20 08/25/20 11:45 12:00 12:15 Temperature 98.2 F Pulse Rate 62 65 70 Pulse Rate [ 66 From Monitor] Respiratory 12 Rate Blood Pressure 125/88 125/88 105/37 O2 Sat by Pulse Oximetry O2 Sat by Pulse Oximetry [ Bilateral Throughout] 08/25/20 08/25/20 08/25/20 12:30 12:35 12:45 Temperature Pulse Rate 65 68 68 Pulse Rate [ From Monitor] Respiratory Rate Blood Pressure 61/40 147/51 135/51 O2 Sat by Pulse Oximetry O2 Sat by Pulse Oximetry [ Bilateral Throughout] 08/25/20 08/25/20 08/25/20 13:00 13:15 13:30 Temperature Pulse Rate 65 75 71 Pulse Rate [ From Monitor] Respiratory 15 Rate Blood Pressure 129/49 160/51 161/60 O2 Sat by Pulse 100 Oximetry O2 Sat by Pulse Oximetry [ Bilateral Throughout] 08/25/20 08/25/20 08/25/20 13:45 14:00 14:07 Temperature Pulse Rate 70 74 70 Pulse Rate [ From Monitor] Respiratory 14 Rate Blood Pressure 163/57 163/57 149/59 O2 Sat by Pulse 100 Oximetry O2 Sat by Pulse Oximetry [ Bilateral Throughout] 08/25/20 14:20 Temperature 98.2 F Pulse Rate 78 Pulse Rate [ From Monitor] Respiratory 16 Rate Blood Pressure 166/54 O2 Sat by Pulse Oximetry O2 Sat by Pulse Oximetry [ Bilateral Throughout] Constitutional: no acute distress, other (elderly obese female without increased respiratory effort at rest) Eyes: non-icteric ENT: oropharynx moist Neck: supple, no lymphadenopathy, no JVD Effort: normal Ascultation: Bilateral: rhonchi Percussion: Bilateral: not dull Cardiovascular: regular rate and rhythm Gastrointestinal: normoactive bowel sounds, soft, non-tender, non-distended (protuberant) Integumentary: rash Extremities: no cyanosis, no edema, pulses normal, no ischemia or petechiae Neurologic: non-focal exam (grossly), pupils equal and round, CN II-XII normal, other (pedal contractures) Psychiatric: mood appropriate, affect normal CBC and BMP: 08/25/20 17:30 08/25/20 09:35 ABG, PT/INR, D-dimer: PT/INR, D-dimer PT 22.8 Sec. (12.2-14.9) H 08/23/20 23:18 INR 1.97 (0.87-1.13) H 08/23/20 23:18 Abnormal lab findings: Abnormal Labs 08/23/20 08/23/20 08/23/20 23:18 23:18 23:18 WBC RBC 3.29 L Hgb 9.1 L Hct 28.9 L RDW 18.8 H Coal % (Auto) 8.5 H Coal # (Auto) 0.9 H Seg Neutrophils % 71.7 H PT 22.8 H INR 1.97 H APTT 54.8 H Sodium 135 L Chloride 91.2 L Carbon Dioxide BUN Creatinine 3.4 H Glucose 156 H POC Glucose Calcium 7.9 L ALT < 5 L Alkaline Phosphatase 589 H Total Protein 5.3 L Albumin 3.0 L Crossmatch 08/24/20 08/24/20 08/24/20 00:55 07:29 07:47 WBC 11.7 H RBC Hgb Hct RDW 17.0 H Coal % (Auto) Coal # (Auto) Seg Neutrophils % PT INR APTT Sodium Chloride Carbon Dioxide BUN Creatinine Glucose POC Glucose 153 H Calcium ALT Alkaline Phosphatase Total Protein Albumin Crossmatch See Detail 08/24/20 08/24/2021 07:47 14:15 17:30 WBC RBC Hgb Hct RDW [place] % (Auto) Coal # (Auto) Seg Neutrophils % PT INR APTT Sodium 133 L Chloride 96.6 L Carbon Dioxide 18 L BUN Creatinine 3.3 H Glucose 156 H POC Glucose 107 H 109 H Calcium 7.6 L ALT Alkaline Phosphatase Total Protein Albumin Crossmatch 08/24/20 08/25/20 08/25/20 21:13 07:52 09:35 WBC RBC Hgb Hct RDW [place] % (Auto) Coal # (Auto) Seg Neutrophils % PT INR APTT Sodium 136 L Chloride Carbon Dioxide BUN 22 H Creatinine 4.4 H Glucose 136 H POC Glucose 148 H 110 H Calcium 7.8 L ALT Alkaline Phosphatase Total Protein Albumin Crossmatch 08/25/20 11:55 WBC RBC Hgb Hct RDW [place] % (Auto) Coal # (Auto) Seg Neutrophils % PT INR APTT Sodium Chloride Carbon Dioxide BUN Creatinine Glucose POC Glucose 154 H Calcium ALT Alkaline Phosphatase Total Protein Albumin Crossmatch Chest x-ray: image reviewed (right subclavian stent) Allied health notes reviewed: nursing
[2020-08-25] MEDS: ONDANSETRON 4 MG/2 ML INJ IV PRN (16:28)
[2020-08-25] MEDS: INSULIN LISPRO 100 UNIT/ML SUB-Q SCH ×3 (16:38→18:18)
--- NOTE | 2020-08-25 16:45 | XRay Report ---
CHEST 1 VIEW INDICATION: Hypoxemia COMPARISON: None FINDINGS: Support devices: None Heart: Mildly enlarged. Right subclavian and left axillary arterial grafts. Lungs/Pleura: Suboptimal inspiration, but no convincing evidence of acute disease. IMPRESSION: 1. No definite acute disease. Signer Name: Christopher Schmidt MD Signed: 08/25/2020 4:41 PM Workstation Name: [id number]
[2020-08-25 17:46] LABS: Basophils % (Auto) 0.2 % (0.0-1.8); Eosinophils % (Auto) 0.1 % (0.0-4.3); Hemoglobin 10.5 gm/dl (10.1-14.3); Lymphocytes # (Auto) 1.3 K/mm3 (1.2-5.4); Lymphocytes % (Auto) 13.6 % (13.4-35.0); Mean Corpuscular HGB Conc 34 % (30-34); Mean Corpuscular Volume 89 fl (79-97); Platelet Count 255 K/mm3 (140-440); Red Blood Count 3.49 M/mm3 (3.65-5.03); Red Cell Distribution Width 17.5 % (13.2-15.2)
[2020-08-25 17:57] LABS: INR 1.52 (0.87-1.13)
[2020-08-26] MEDS: HYDROmorphone 1 MG/1 ML INJ IV PRN ×2 (04:47→12:49)
[2020-08-26] MEDS: FAMOTIDINE 20 MG TAB PO SCH ×2 (05:28→21:48)
[2020-08-26] MEDS: lamoTRIgine 100 MG TAB PO SCH ×3 (05:28→21:48)
[2020-08-26] MEDS: INSULIN LISPRO 100 UNIT/ML SUB-Q SCH ×5 (05:28→21:50)
[2020-08-26] MEDS: FLUTICASONE PROPIONATE NASAL SPRAY 16 GM NS SCH ×3 (05:28→21:52)
[2020-08-26] MEDS: CINACALCET 30 MG TAB PO SCH (09:58)
[2020-08-26] MEDS: MULTIVITAMINS,THER W-MINERALS TAB PO SCH (09:58)
[2020-08-26] MEDS: MIDODRINE 5 MG TAB PO SCH ×3 (09:58→15:59)
[2020-08-26] MEDS: SEVELAMER CARBONATE 800 MG TAB PO SCH ×3 (09:59→15:59)
--- NOTE | 2020-08-26 10:27 | Progress Note ---
Assessment and Plan Assessment and plan: --Hemorrhage from bleeding fistula/hypotension Current Visit: No Status: Acute Blood pressures reasonable level Continue midodrine 10 mg 3 times a day Supportive care -- Complication of AV fistula[bleeding] Current Visit: No Status: Acute/resolved Patient had sutures placed on the bleeding fistula. Vascular surgeon evaluated the patient s/p vascular procedure 08/24/2020 -Diagnostic Fistulogram with Central Venogram -Angioplasty and Stent of Right Arm AV Graft -Angioplasty and Stent of Right Subclavian Vein -- ESRD (end stage renal disease) on dialysis Current Visit: Yes Status: Acute Patient gets dialysis on Saturday and Saturdays. Hemodialysis per schedule. Nephrology following --Moderate malnutrition; hypoalbuminemia Current Visit: Yes Status: Acute . Albumin 3.0, nutrition supplements and supportive care Nutrition consult if needed --History of seizure disorder; Current Visit: No Status: chronic Seizure precautions, Ativan as needed Resume antiepileptic medications When accurate home medication list is available Cannot drive until cleared by neurology or PMD --Type II diabetes mellitus Current Visit: No Status: chronic Accu-Chek sliding scale coverage ADA diet Insulin as needed -- DVT prophylaxis Current Visit: No Status: Acute We will place patient on sequential compression device meanwhile. No pharmacologic anticoagulation in view of bleeding from AV fistula --Full code status Current Visit: No Status: Acute Patient is full code. We will closely monitor the patient and adjust management as needed Plan of care reviewed with the patient and her nurse Brief history :74-year-old female patient with significant history of end-stage renal disease on hemodialysis was admitted with malfunctioning of AV fistula With bleeding, evaluated by vascular, patient underwent vascular procedure and resumed hemodialysis, patient also has seizures On antiepileptic medications, follow physical therapy occupational therapy, awaiting return to SNF /SNF placement I called patient's daughter Ms. Kerri Elias at [phone] and discussed in detail on 08/24/2020 Patient's condition, tests and reports consultants recommendation, and treatment plan. Patient had many questions, I answered all of them and encouraged her to call [facility] if she has any new concerns ; Patient is receiving hemodialysis per schedule, stable to be transferred out of [facility] To the floor 08/26/2020; patient had brief seizure episode, patient is on seizure medications, Ativan as needed Will consult neurology if needed I spoke with Ms. Kerri Elias today when she came visiting her mother, patient's condition treatment And discharge planning, answered all her questions, verbalized understanding History Interval history: I have seen and examined the patient at the bedside Patient's chart and medications reviewed Nurse reports that patient had brief seizure-like activity Patient is already on antiepileptic medications At the time of my evaluation patient is alert and awake No new complaints Vital signs noted Hospitalist Physical - Constitutional Vitals: Temp Pulse Resp BP Pulse Ox 97.5 F L 74 20 137/36 98 08/26/20 04:33 08/26/20 08:00 08/26/20 04:33 08/26/20 04:33 08/26/20 10:18 General appearance: Present: no acute distress, well-nourished, other (Confused at times) - EENT Eyes: Present: PERRL, EOM intact - Neck Neck: Present: supple, normal ROM - Respiratory Respiratory effort: normal Respiratory: bilateral: diminished, negative: rales, rhonchi, wheezing - Cardiovascular Rhythm: regular Heart Sounds: Present: S1 & S2 - Extremities Extremities: no ischemia Extremity abnormal: edema - Abdominal General gastrointestinal: soft, non-tender, non-distended, normal bowel sounds - Integumentary Integumentary: Present: clear, warm - Psychiatric Psychiatric: cooperative, other (Confused at times) - Neurologic Neurologic: moves all extremities Results - Labs CBC & Chem 7: 08/25/20 17:30 08/25/20 09:35 Labs: Laboratory Last Values WBC 9.5 K/mm3 (4.5-11.0) 08/25/20 17:30 RBC 3.49 M/mm3 (3.65-5.03) L 08/25/20 17:30 Hgb 10.5 gm/dl (10.1-14.3) 08/25/20 17:30 Hct 31.0 % (30.3-42.9) D 08/25/20 17:30 MCV 89 fl (79-97) 08/25/20 17:30 MCH 30 pg (28-32) 08/25/20 17:30 MCHC 34 % (30-34) 08/25/20 17:30 RDW 17.5 % (13.2-15.2) H 08/25/20 17:30 Plt Count 255 K/mm3 (140-440) 08/25/20 17:30 Lymph % (Auto) 13.6 % (13.4-35.0) 08/25/20 17:30 [place] % (Auto) 11.0 % (0.0-7.3) H 08/25/20 17:30 Eos % (Auto) 0.1 % (0.0-4.3) 08/25/20 17:30 Baso % (Auto) 0.2 % (0.0-1.8) 08/25/20 17:30 Lymph # (Auto) 1.3 K/mm3 (1.2-5.4) 08/25/20 17:30 [place] # (Auto) 1.0 K/mm3 (0.0-0.8) H 08/25/20 17:30 Eos # (Auto) 0.0 K/mm3 (0.0-0.4) 08/25/20 17:30 Baso # (Auto) 0.0 K/mm3 (0.0-0.1) 08/25/20 17:30 Seg Neutrophils % 75.1 % (40.0-70.0) H 08/25/20 17:30 Seg Neutrophils # 7.1 K/mm3 (1.8-7.7) 08/25/20 17:30 PT 18.9 Sec. (12.2-14.9) H 08/25/20 17:30 INR 1.52 (0.87-1.13) H 08/25/20 17:30 APTT 54.8 Sec. (24.2-36.6) H 08/23/20 23:18 Sodium 136 mmol/L (137-145) L 08/25/20 09:35 Potassium 3.6 mmol/L (3.6-5.0) 08/25/20 09:35 Chloride 98.2 mmol/L (98-107) 08/25/20 09:35 Carbon Dioxide 24 mmol/L (22-30) 08/25/20 09:35 Anion Gap 17 mmol/L 08/25/20 09:35 BUN 22 mg/dL (7-17) H 08/25/20 09:35 Creatinine 4.4 mg/dL (0.6-1.2) H 08/25/20 09:35 Estimated GFR 12 ml/min 08/25/20 09:35 BUN/Creatinine Ratio 5 % 08/25/20 09:35 Glucose 136 mg/dL (65-100) H 08/25/20 09:35 POC Glucose 155 mg/dL (70-105) H 08/25/20 17:29 Lactic Acid 1.60 mmol/L (0.7-2.0) 08/24/20 15:43 Calcium 7.8 mg/dL (8.4-10.2) L 08/25/20 09:35 Total Bilirubin 0.50 mg/dL (0.1-1.2) 08/23/20 23:18 AST 13 units/L (5-40) 08/23/20 23:18 ALT < 5 units/L (7-56) L 08/23/20 23:18 Alkaline Phosphatase 589 units/L (35-129) H 08/23/20 23:18 Total Protein 5.3 g/dL (6.3-8.2) L 08/23/20 23:18 Albumin 3.0 g/dL (3.9-5) L 08/23/20 23:18 Albumin/Globulin Ratio 1.3 % 08/23/20 23:18 Procalcitonin 28.55 ng/mL (<0.15) 08/24/20 15:43 Coronavirus (PCR) Negative (Negative) 08/24/20 Unknown Hepatitis A IgM Ab Non-reactive (NonReactive) 08/25/20 09:35 Hep Bs Antigen Non-reactive (Negative) 08/25/20 09:35 Hep B Core IgM Ab Non-reactive (NonReactive) 08/25/20 09:35 Hepatitis C Antibody Non-reactive (NonReactive) 08/25/20 09:35 Blood Type A POSITIVE 08/24/20 00:55 Antibody Screen Negative 08/24/20 00:55 Crossmatch See Detail 08/24/20 00:55 Mcdaniel/IV: Voiding Method External Female Catheter Active Medications - Current Medications Current Medications: Generic Name Dose Route Start Last Admin Trade Name Freq PRN Reason Stop Dose Admin Cinacalcet 30 mg 08/25/20 10:00 08/26/20 09:58 Cinacalcet 30 Mg Tab PO 30 mg DAILY RITESH Administration Colchicine 0.6 mg 08/24/20 16:27 Colchicine 0.6 Mg Tab PO Q12HR PRN Gout Dextrose 50 ml 08/24/20 01:20 Dextrose 50% In Water (25gm) 50 Ml Syringe IV Q30MIN PRN Hypoglycemia Protocol Ergocalciferol 50,000 unit 08/31/20 10:00 Ergocalciferol (Vit D2) 50,000 Unit Cap PO We RITESH Famotidine 20 mg 08/24/20 22:00 08/26/20 05:28 Famotidine 20 Mg Tab PO Not Given QHS RITESH Fluticasone Propionate 50 mcg 08/24/20 22:00 08/26/20 10:04 Fluticasone Propionate Nasal [place] 16 Gm NS 50 mcg BID RITESH Administration Hydromorphone HCl 0.25 mg 08/25/20 13:48 08/26/20 04:47 Hydromorphone 1 Mg/1 Ml Inj IV 0.25 mg Q6H PRN Administration Pain , Severe (7-10) Sodium Chloride 100 mls @ 999 mls/hr 08/24/20 16:05 Nacl 0.9% IV FAUSTINA PRN Hypotension Insulin Human Lispro 0 unit 08/24/20 07:30 08/26/20 09:59 Insulin Lispro 100 Unit/Ml SUB-Q Not Given ACHS RITESH Protocol Lamotrigine 100 mg 08/24/20 22:00 08/26/20 09:58 Lamotrigine 100 Mg Tab PO 100 mg Q12HR RITESH Administration Midodrine 10 mg 08/24/20 15:49 08/26/20 09:58 Midodrine 5 Mg Tab PO 10 mg TID@0800,1200,1600 RITESH Administration Multivitamins/Minerals 1 each 08/25/20 10:00 08/26/20 09:58 Multivitamins,Ther W-Minerals Tab PO 1 each DAILY RITESH Administration Ondansetron HCl 4 mg 08/24/20 01:20 08/25/20 16:28 Ondansetron 4 Mg/2 Ml Inj IV 4 mg Q8H PRN Administration Nausea And Vomiting Oxycodone/Acetaminophen 1 tab 08/25/20 13:48 Oxycodone /Acetaminophen 5-325mg Tab PO Q6H PRN Pain, Moderate (4-6) Sevelamer Carbonate 800 mg 08/24/20 18:00 08/26/20 09:59 Sevelamer Carbonate 800 Mg Tab PO 800 mg AC RITESH Administration Sodium Chloride 10 ml 08/24/20 10:00 08/26/20 09:59 Sodium Chloride 0.9% 10 Ml Flush Syringe IV 10 ml BID RITESH Administration Sodium Chloride 10 ml 08/24/20 01:20 Sodium Chloride 0.9% 10 Ml Flush Syringe IV PRN PRN LINE FLUSH Nutrition/Malnutrition Assess - Dietary Evaluation Nutrition/Malnutrition Findings: Nutrition Notes Start: 08/24/20 12: 47 Freq: Status: Active Protocol: Document 08/25/20 12:21 (Rec: 08/25/20 12:25 [email or web address]) Nutrition Notes Need for Assessment generated from: podiatric foot and ankle specialist Initial or Follow up Assessment Current Diagnosis CKD (stage V CKD),Diabetes Other Pertinent Diagnosis AV fistula malfunction, Dementia, Sleep apnea, MDD Current Diet Renal Labs/Tests Na 136 BUN 22 Cr 4.4 Pertinent Medications reviewed Height 5 ft Weight 67.5 kg [place] Body Weight (kg) 45.45 BMI 29.0 Weight Status Overweight Subjective/Other Information RN screen for skin risk. Pt eating <25% of meals. She is unsure of UBW or weight loss. Burn Absent Trauma Absent Current % PO Negligible Minimum of two criteria No physical signs of malnutrition #2 Nutrition Diagnosis Increased nutrient needs ( specify in comment below) Comments: protein Etiology wound healing As Evidenced by Signs and Symptoms coccyx, sacrum, buttocks wounds #1 Nutrition Diagnosis Inadequate energy intake Etiology chronic disease, advanced age As Evidenced by Signs and Symptoms pt eating <25% of meals Is patient on ventilator? No Is Patient Ambulatory and/or Out of Bed No REE-([facility]-confined to bed) 1322.100 Calculation Used for Recommendations [facility] Additional Notes Pro needs >1.2g/kg: >81g/day Fluid needs 1-1.5L/day Nutrition Intervention Change Diet Order: Continue Add Supplement/Snack (indicate name/kcal Nepro BID /protein ) Provides kCal: 850 Provides Protein (gm) 38 Goal #1 Meet at least 75% of protein and energy needs via PO and ONS intakes Follow-Up By: 08/29/20 Additional Comments F/U: intakes and ONS tolerance
--- NOTE | 2020-08-26 11:54 | Progress Note ---
Assessment and Plan 1. ESRD: Patient is on maintenance hemodialysis three times a week, TTS schedule. Meds dosage based on GFR. Hemodialysis: 08/25. 2. FEN: Monitor lytes. 3. Anemia, POA: Monitor H/H. Epogen with HD as needed. 4. Malfunctioning AVG: Presented with bleeding AVG. S/p angioplasty. 5. Seizure disorder. 6. Type II DM: Accu-Chek sliding scale coverage ADA diet. 7. Hypotension: Midodrine. Subjective: Pt was seen and examined at the bedside. Examination: General appearance: well-developed, appears stated age, appears emaciated, not in distress HEENT: ATNC, LORETTA, hearing intact Neck: neck supple, trachea midline Respiratory: Clear to Auscultation Heart: regular, S1S2, no murmur Gastrointestinal: Soft, normoactive bowel sounds, obese Integumentary: no rash, warm and dry Neurologic: able to move extremities, confused Ext: no edema noted Hemodialysis access: R arm AVG Subjective Date of service: 08/26/20 Principal diagnosis: Ac. Hypoxemic resp failure; Hemorrhagic shock; TRACEE; Malfunctioning AV graft Objective - Vital Signs Vital signs: Vital Signs - 12hr 08/26/20 08/26/20 08/26/20 00:00 00:50 02:52 Temperature 98.1 F Pulse Rate 94 H 96 H Pulse Rate [ 83 From Monitor] Respiratory 15 20 Rate Blood Pressure 93/34 Blood Pressure 135/46 [Left] O2 Sat by Pulse 100 Oximetry 08/26/20 08/26/20 08/26/20 04:00 04:33 08:00 Temperature 97.5 F L Pulse Rate 90 100 H 74 Pulse Rate [ 83 From Monitor] Respiratory 15 20 Rate Blood Pressure 137/36 Blood Pressure [Left] O2 Sat by Pulse 99 Oximetry 08/26/20 10:18 Temperature Pulse Rate Pulse Rate [ From Monitor] Respiratory Rate Blood Pressure Blood Pressure [Left] O2 Sat by Pulse 98 Oximetry - Lab 08/25/20 17:30 08/25/20 09:35 Most recent lab results Calcium 7.8 mg/dL (8.4-10.2) L 08/25/20 09:35 Medications & Allergies - Medications Allergies/Adverse Reactions: Allergies sulfacetamide [From Sulfamide] Allergy (Verified 03/06/17 00:22) Anaphylaxis Home Medications: Home Medications Medication Instructions Recorded Confirmed Last Taken Type Apixaban [Eliquis] 5 mg PO BID 03/05/17 08/24/20 Unknown History Colchicine [Colcrys] 0.6 mg PO Q12HR PRN 03/05/17 08/24/20 Unknown History Fluticasone [Flonase] 1 spray NS BID 03/05/17 08/24/20 Unknown History Pantoprazole [Protonix TAB] 20 mg PO QDAY 03/05/17 08/24/20 Unknown History sevelamer HCL [Renagel] 800 mg PO TIDWM 03/05/17 08/24/20 Unknown History Acetaminophen 650 mg PO Q6HR PRN 08/24/20 08/24/20 Unknown History Cholecalciferol (Vitamin D3) 50,000 unit PO 1XW 08/24/20 08/24/20 Unknown History Cinacalcet HCl [Sensipar] 30 mg PO DAILY 08/24/20 08/24/20 Unknown History DUONEB *Not for PRN Use* 1 neb INHALATION Q4H PRN 08/24/20 08/26/20 Unknown History Insulin Glargine,Hum.rec.anlog 10 units SUB-Q QHS 08/24/20 08/24/20 Unknown History [Semglee] Insulin Lispro [Admelog] See Protocol SQ ACHS 08/24/20 08/24/20 Unknown History Lidocaine [Lidoderm] 1 patch TD DAILY 08/24/20 08/26/20 Unknown History Multivitamin Tab W-MINERAL 1 each PO DAILY 08/24/20 08/24/20 Unknown History [Multiple Vitamin/Mineral (Theragran M)] Ramelteon [Rozerem] 8 mg PO QHS 08/24/20 08/24/20 Unknown History lamoTRIgine [LaMICtal] 100 mg PO Q12HR 08/24/20 08/24/20 Unknown History Active Medications: Generic Name Dose Route Start Last Admin Trade Name Freq PRN Reason Stop Dose Admin Cinacalcet 30 mg 08/25/20 10:00 08/26/20 09:58 Cinacalcet 30 Mg Tab PO 30 mg DAILY RITESH Administration Colchicine 0.6 mg 08/24/20 16:27 Colchicine 0.6 Mg Tab PO Q12HR PRN Gout Dextrose 50 ml 08/24/20 01:20 Dextrose 50% In Water (25gm) 50 Ml Syringe IV Q30MIN PRN Hypoglycemia Protocol Ergocalciferol 50,000 unit 08/31/20 10:00 Ergocalciferol (Vit D2) 50,000 Unit Cap PO We RITESH Famotidine 20 mg 08/24/20 22:00 08/26/20 05:28 Famotidine 20 Mg Tab PO Not Given QHS RITESH Fluticasone Propionate 50 mcg 08/24/20 22:00 08/26/20 10:04 Fluticasone Propionate Nasal [place] 16 Gm NS 50 mcg BID RITESH Administration Hydromorphone HCl 0.25 mg 08/25/20 13:48 08/26/20 04:47 Hydromorphone 1 Mg/1 Ml Inj IV 0.25 mg Q6H PRN Administration Pain , Severe (7-10) Sodium Chloride 100 mls @ 999 mls/hr 08/24/20 16:05 Nacl 0.9% IV FAUSTINA PRN Hypotension Insulin Human Lispro 0 unit 08/24/20 07:30 08/26/20 09:59 Insulin Lispro 100 Unit/Ml SUB-Q Not Given ACHS RITESH Protocol Lamotrigine 100 mg 08/24/20 22:00 08/26/20 09:58 Lamotrigine 100 Mg Tab PO 100 mg Q12HR RITESH Administration Midodrine 10 mg 08/24/20 15:49 08/26/20 09:58 Midodrine 5 Mg Tab PO 10 mg TID@0800,1200,1600 RITESH Administration Multivitamins/Minerals 1 each 08/25/20 10:00 08/26/20 09:58 Multivitamins,Ther W-Minerals Tab PO 1 each DAILY RITESH Administration Ondansetron HCl 4 mg 08/24/20 01:20 08/25/20 16:28 Ondansetron 4 Mg/2 Ml Inj IV 4 mg Q8H PRN Administration Nausea And Vomiting Oxycodone/Acetaminophen 1 tab 08/25/20 13:48 Oxycodone /Acetaminophen 5-325mg Tab PO Q6H PRN Pain, Moderate (4-6) Sevelamer Carbonate 800 mg 08/24/20 18:00 08/26/20 09:59 Sevelamer Carbonate 800 Mg Tab PO 800 mg AC RITESH Administration Sodium Chloride 10 ml 08/24/20 10:00 08/26/20 09:59 Sodium Chloride 0.9% 10 Ml Flush Syringe IV 10 ml BID RITESH Administration Sodium Chloride 10 ml 08/24/20 01:20 Sodium Chloride 0.9% 10 Ml Flush Syringe IV PRN PRN LINE FLUSH
--- NOTE | 2020-08-26 14:26 | Progress Note ---
Assessment and Plan Acute Hypoxemic respiratory failure Hemorrhagic shock ESRD on dialysis Malfunctioning right upper extremity arteriovenous graft DM II H/O pulmonary embolism Seizure disorder Dementia Obesity Anemia that is normocytic Coagulopathy Gout History of sleep apnea - BIPAP scheduled qhs re: TERENCE - continue care as below otherwise; - continue HD/UF for toxin and volume clearance - continue Midodrine for BP support - continue accuchecks with glycemic control per SSI for target blood glucose of < 180 mg/dL; avoid hypoglycemia - continue to wean supplemental oxygen for target O2 sat's > 90% acutely - Aspiration precautions - prn bronchodilators with pulmonary hygiene per RT - avoid nephrotoxins, renally dose all medications - continue to avoid benzodiazepine's, reduce the possibility of delirium - AB's per ID rec's - prn analgesia per pain score - Maintenance of sleep-wake cycle, avoid delirium - G.I. & VTE prophylaxis - PT/OT/ROM exercises - mobility protocols for pressure ulcer prophylaxis - Monitor hemodynamics closely - continue other care per attending / other consultants - discharge planning ongoing concurrently COVID SPECIFIC INTERVENTIONS - COVID-19 PCR negative .... Re-evaluate in am & prn Subjective Date of service: 08/26/20 Principal diagnosis: Ac. Hypoxemic resp failure; Hemorrhagic shock; TRACEE; Malfunctioning AV graft Interval history: Patient is seen today for: Acute Hypoxemic respiratory failure; Hemorrhagic shock; TRACEE on dialysis; Malfunctioning right upper extremity arteriovenous graft; DM II; H/O pulmonary embolism; TERENCE; Seizure disorder Seen and examined at bedside; 24hour events reviewed; nursing and respiratory care staff consulted; no adverse overnight events reported to me; resting in bed; a little confused; denies chest pain; on room air; no emesis or overt aspiration reported Objective Vital Signs - 12hr 08/26/20 08/26/20 08/26/20 02:52 04:00 04:33 Temperature 98.1 F 97.5 F L Pulse Rate 96 H 90 100 H Pulse Rate [ 83 From Monitor] Respiratory 20 15 20 Rate Blood Pressure 137/36 Blood Pressure 135/46 [Left] O2 Sat by Pulse 100 99 Oximetry 08/26/20 08/26/20 08:00 10:18 Temperature Pulse Rate 74 Pulse Rate [ From Monitor] Respiratory Rate Blood Pressure Blood Pressure [Left] O2 Sat by Pulse 98 Oximetry Constitutional: no acute distress, other (elderly obese female without increased respiratory effort at rest) Eyes: non-icteric ENT: oropharynx moist Neck: supple, no lymphadenopathy, no JVD Effort: normal Ascultation: Bilateral: rhonchi Percussion: Bilateral: not dull Cardiovascular: regular rate and rhythm Gastrointestinal: normoactive bowel sounds, soft, non-tender, non-distended (protuberant) Integumentary: rash Extremities: no cyanosis, no edema, pulses normal, no ischemia or petechiae Neurologic: non-focal exam (grossly), pupils equal and round, CN II-XII normal, other (pedal contractures) Psychiatric: mood appropriate, affect normal CBC and BMP: 08/25/20 17:30 08/25/20 09:35 ABG, PT/INR, D-dimer: PT/INR, D-dimer PT 18.9 Sec. (12.2-14.9) H 08/25/20 17:30 INR 1.52 (0.87-1.13) H 08/25/20 17:30 Abnormal lab findings: Abnormal Labs 08/23/20 08/23/20 08/23/20 23:18 23:18 23:18 WBC RBC 3.29 L Hgb 9.1 L Hct 28.9 L RDW 18.8 H Rains % (Auto) 8.5 H Rains # (Auto) 0.9 H Seg Neutrophils % 71.7 H PT 22.8 H INR 1.97 H APTT 54.8 H Sodium 135 L Chloride 91.2 L Carbon Dioxide BUN Creatinine 3.4 H Glucose 156 H POC Glucose Calcium 7.9 L ALT < 5 L Alkaline Phosphatase 589 H Total Protein 5.3 L Albumin 3.0 L Crossmatch 08/24/20 08/24/20 08/24/20 00:55 07:29 07:47 WBC 11.7 H RBC Hgb Hct RDW 17.0 H Rains % (Auto) Rains # (Auto) Seg Neutrophils % PT INR APTT Sodium Chloride Carbon Dioxide BUN Creatinine Glucose POC Glucose 153 H Calcium ALT Alkaline Phosphatase Total Protein Albumin Crossmatch See Detail 08/24/20 08/24/20 08/24/20 07:47 14:15 17:30 WBC RBC Hgb Hct RDW Rains % (Auto) Rains # (Auto) Seg Neutrophils % PT INR APTT Sodium 133 L Chloride 96.6 L Carbon Dioxide 18 L BUN Creatinine 3.3 H Glucose 156 H POC Glucose 107 H 109 H Calcium 7.6 L ALT Alkaline Phosphatase Total Protein Albumin Crossmatch 08/24/20 08/25/20 08/25/20 21:13 07:52 09:35 WBC RBC Hgb Hct RDW Rains % (Auto) Rains # (Auto) Seg Neutrophils % PT INR APTT Sodium 136 L Chloride Carbon Dioxide BUN 22 H Creatinine 4.4 H Glucose 136 H POC Glucose 148 H 110 H Calcium 7.8 L ALT Alkaline Phosphatase Total Protein Albumin Crossmatch 08/25/20 08/25/20 08/25/20 11:55 17:29 17:30 WBC RBC 3.49 L Hgb Hct RDW 17.5 H Rains % (Auto) 11.0 H Rains # (Auto) 1.0 H Seg Neutrophils % 75.1 H PT INR APTT Sodium Chloride Carbon Dioxide BUN Creatinine Glucose POC Glucose 154 H 155 H Calcium ALT Alkaline Phosphatase Total Protein Albumin Crossmatch 08/25/20 08/26/20 17:30 11:29 WBC RBC Hgb Hct RDW Rains % (Auto) Rains # (Auto) Seg Neutrophils % PT 18.9 H INR 1.52 H APTT Sodium Chloride Carbon Dioxide BUN Creatinine Glucose POC Glucose 139 H Calcium ALT Alkaline Phosphatase Total Protein Albumin Crossmatch Allied health notes reviewed: nursing
[2020-08-26] MEDS: ONDANSETRON 4 MG/2 ML INJ IV PRN (15:59)
[2020-08-26] MEDS: LORazepam 2 MG/ML VIAL IV PRN (17:06)
--- NOTE | 2020-08-26 20:10 | Event Note ---
Date: 08/26/20 I spoke with Breana Kerri Elias today when she came visiting her mother, updated patient's condition treatment And discharge planning, answered all her questions, verbalized understanding
[2020-08-27] MEDS: INSULIN LISPRO 100 UNIT/ML SUB-Q SCH ×4 (08:36→23:04)
[2020-08-27] MEDS: MIDODRINE 5 MG TAB PO SCH ×3 (09:14→18:00)
[2020-08-27] MEDS: SEVELAMER CARBONATE 800 MG TAB PO SCH ×3 (09:14→18:06)
--- NOTE | 2020-08-27 10:10 | Progress Note ---
Assessment and Plan 1. ESRD: Patient is on maintenance hemodialysis three times a week, TTS schedule. Meds dosage based on GFR. Hemodialysis: 08/25. Patient refused HD today. 2. FEN: Monitor lytes. 3. Anemia, POA: Monitor H/H. Epogen with HD as needed. 4. Malfunctioning AVG: Presented with bleeding AVG. S/p angioplasty. 5. Seizure disorder. 6. Type II DM: Accu-Chek sliding scale coverage ADA diet. 7. Hypotension: Midodrine. Subjective: Pt was seen and examined at the bedside. Son at the bedside. Examination: General appearance: well-developed, appears stated age, appears emaciated, not in distress HEENT: ATNC, [place], hearing intact Neck: neck supple, trachea midline Respiratory: Clear to Auscultation Heart: regular, S1S2, no murmur Gastrointestinal: Soft, normoactive bowel sounds, obese Integumentary: no rash, warm and dry Neurologic: able to move extremities, confused Ext: b/l LE splint noted Hemodialysis access: R arm AVG Subjective Date of service: 08/27/20 Principal diagnosis: Ac. Hypoxemic resp failure; Hemorrhagic shock; TRACEE; Malfunctioning AV graft Objective - Vital Signs Vital signs: Vital Signs - 12hr 08/27/20 08/27/20 08/27/20 00:02 03:44 09:46 Temperature 97.7 F 97.6 F Pulse Rate 86 102 H Respiratory 20 16 Rate Blood Pressure 98/56 99/50 [Left] O2 Sat by Pulse 94 93 100 Oximetry - Lab 08/25/20 17:30 08/25/20 09:35 Most recent lab results Calcium 7.8 mg/dL (8.4-10.2) L 08/25/20 09:35 Medications & Allergies - Medications Allergies/Adverse Reactions: Allergies sulfacetamide [From Sulfamide] Allergy (Verified 03/06/17 00:22) Anaphylaxis Home Medications: Home Medications Medication Instructions Recorded Confirmed Last Taken Type Apixaban [Eliquis] 5 mg PO BID 03/05/17 08/24/20 Unknown History Colchicine [Colcrys] 0.6 mg PO Q12HR PRN 03/05/17 08/24/20 Unknown History Fluticasone [Flonase] 1 spray NS BID 03/05/17 08/24/20 Unknown History Pantoprazole [Protonix TAB] 20 mg PO QDAY 03/05/17 08/24/20 Unknown History sevelamer HCL [Renagel] 800 mg PO TIDWM 03/05/17 08/24/20 Unknown History Acetaminophen 650 mg PO Q6HR PRN 08/24/20 08/24/20 Unknown History Cholecalciferol (Vitamin D3) 50,000 unit PO 1XW 08/24/20 08/24/20 Unknown History Cinacalcet HCl [Sensipar] 30 mg PO DAILY 08/24/20 08/24/20 Unknown History DUONEB *Not for PRN Use* 1 neb INHALATION Q4H PRN 08/24/20 08/26/20 Unknown History Insulin Glargine,Hum.rec.anlog 10 units SUB-Q QHS 08/24/20 08/24/20 Unknown History [Semglee] Insulin Lispro [Admelog] See Protocol SQ ACHS 08/24/20 08/24/20 Unknown History Lidocaine [Lidoderm] 1 patch TD DAILY 08/24/20 08/26/20 Unknown History Multivitamin Tab W-MINERAL 1 each PO DAILY 08/24/20 08/24/20 Unknown History [Multiple Vitamin/Mineral (Theragran M)] Ramelteon [Rozerem] 8 mg PO QHS 08/24/20 08/24/20 Unknown History lamoTRIgine [LaMICtal] 100 mg PO Q12HR 08/24/20 08/24/20 Unknown History Active Medications: Generic Name Dose Route Start Last Admin Trade Name Freq PRN Reason Stop Dose Admin Cinacalcet 30 mg 08/25/20 10:00 08/26/20 09:58 Cinacalcet 30 Mg Tab PO 30 mg DAILY RITESH Administration Colchicine 0.6 mg 08/24/20 16:27 Colchicine 0.6 Mg Tab PO Q12HR PRN Gout Dextrose 50 ml 08/24/20 01:20 Dextrose 50% In Water (25gm) 50 Ml Syringe IV Q30MIN PRN Hypoglycemia Protocol Ergocalciferol 50,000 unit 08/31/20 10:00 Ergocalciferol (Vit D2) 50,000 Unit Cap PO We RITESH Famotidine 20 mg 08/24/20 22:00 08/26/20 21:48 Famotidine 20 Mg Tab PO 20 mg QHS RITESH Administration Fluticasone Propionate 50 mcg 08/24/20 22:00 08/26/20 21:52 Fluticasone Propionate Nasal [place] 16 Gm NS 50 mcg BID RITESH Administration Hydromorphone HCl 0.25 mg 08/25/20 13:48 08/26/20 12:49 Hydromorphone 1 Mg/1 Ml Inj IV 0.25 mg Q6H PRN Administration Pain , Severe (7-10) Sodium Chloride 100 mls @ 999 mls/hr 08/24/20 16:05 Nacl 0.9% IV FAUSTINA PRN Hypotension Insulin Human Lispro 0 unit 08/24/20 07:30 08/27/20 08:36 Insulin Lispro 100 Unit/Ml SUB-Q Not Given ACHS [facility] Protocol Lamotrigine 100 mg 08/24/20 22:00 08/26/20 21:48 Lamotrigine 100 Mg Tab PO 100 mg Q12HR RITESH Administration Lorazepam 2 mg 08/26/20 16:23 08/26/20 17:06 Lorazepam 2 Mg/Ml Vial IV 2 mg Q2H PRN Administration Seizures Midodrine 10 mg 08/24/20 15:49 08/27/20 09:14 Midodrine 5 Mg Tab PO Not Given TID@0800,1200,1600 [facility] Multivitamins/Minerals 1 each 08/25/20 10:00 08/26/20 09:58 Multivitamins,Ther W-Minerals Tab PO 1 each DAILY RITESH Administration Ondansetron HCl 4 mg 08/24/20 01:20 08/26/20 15:59 Ondansetron 4 Mg/2 Ml Inj IV 4 mg Q8H PRN Administration Nausea And Vomiting Oxycodone/Acetaminophen 1 tab 08/25/20 13:48 Oxycodone /Acetaminophen 5-325mg Tab PO Q6H PRN Pain, Moderate (4-6) Sevelamer Carbonate 800 mg 08/24/20 18:00 08/27/20 09:14 Sevelamer Carbonate 800 Mg Tab PO Not Given AC RITESH Sodium Chloride 10 ml 08/24/20 10:00 08/26/20 21:48 Sodium Chloride 0.9% 10 Ml Flush Syringe IV 10 ml BID RITESH Administration Sodium Chloride 10 ml 08/24/20 01:20 Sodium Chloride 0.9% 10 Ml Flush Syringe IV PRN PRN LINE FLUSH
[2020-08-27] MEDS: FLUTICASONE PROPIONATE NASAL SPRAY 16 GM NS SCH ×2 (10:57→23:05)
[2020-08-27] MEDS: lamoTRIgine 100 MG TAB PO SCH ×3 (10:58→23:03)
[2020-08-27] MEDS: CINACALCET 30 MG TAB PO SCH ×2 (10:58→13:19)
[2020-08-27] MEDS: MULTIVITAMINS,THER W-MINERALS TAB PO SCH ×2 (10:58→13:19)
[2020-08-27] MEDS: oxyCODONE /ACETAMINOPHEN 5-325MG TAB PO PRN (13:52)
--- NOTE | 2020-08-27 15:15 | Progress Note ---
Assessment and Plan Acute Hypoxemic respiratory failure Hemorrhagic shock ESRD on dialysis Malfunctioning right upper extremity arteriovenous graft DM II H/O pulmonary embolism Seizure disorder Dementia Obesity Anemia that is normocytic Coagulopathy Gout History of sleep apnea - neurology evlautaion ongoing - continue Lamictal as AED - continue BIPAP scheduled qhs re: TERENCE - continue care as below otherwise; - continue HD/UF for toxin and volume clearance - continue Midodrine for BP support - continue accuchecks with glycemic control per SSI for target blood glucose of < 180 mg/dL; avoid hypoglycemia - continue to wean supplemental oxygen for target O2 sat's > 90% acutely - Aspiration precautions - prn bronchodilators with pulmonary hygiene per RT - avoid nephrotoxins, renally dose all medications - continue to avoid benzodiazepine's, reduce the possibility of delirium - AB's per ID rec's - prn analgesia per pain score - Maintenance of sleep-wake cycle, avoid delirium - G.I. & VTE prophylaxis - PT/OT/ROM exercises - mobility protocols for pressure ulcer prophylaxis - Monitor hemodynamics closely - continue other care per attending / other consultants - discharge planning ongoing concurrently COVID SPECIFIC INTERVENTIONS - COVID-19 PCR negative .... Re-evaluate in am & prn Subjective Date of service: 08/27/20 Principal diagnosis: Ac. Hypoxemic resp failure; Hemorrhagic shock; TRACEE; Malfunc tioning AV graft Interval history: Patient is seen today for: Acute Hypoxemic respiratory failure; Hemorrhagic shock; TRACEE on dialysis; Malfunctioning right upper extremity arteriovenous graft; DM II; H/O pulmonary embolism; TERENCE; Seizure disorder Seen and examined at bedside; 24hour events reviewed; nursing and respiratory care staff consulted; no adverse overnight events reported to me; resting in bed; no reported seizure activity today; no N/V/F/C Objective Vital Signs - 12hr 08/27/20 08/27/20 03:44 09:46 Temperature 97.6 F Pulse Rate 102 H Respiratory 16 Rate Blood Pressure 99/50 [Left] O2 Sat by Pulse 93 100 Oximetry Constitutional: no acute distress, other (elderly obese female without increased respiratory effort at rest) Eyes: non-icteric ENT: oropharynx moist Neck: supple, no lymphadenopathy, no JVD Effort: normal Ascultation: Bilateral: rhonchi Percussion: Bilateral: not dull Cardiovascular: regular rate and rhythm Gastrointestinal: normoactive bowel sounds, soft, non-tender, non-distended (protuberant) Integumentary: rash Extremities: no cyanosis, no edema, pulses normal, no ischemia or petechiae Neurologic: non-focal exam (grossly), pupils equal and round, CN II-XII normal, other (pedal contractures) Psychiatric: mood appropriate, affect normal, other (poor insight and judgment) CBC and BMP: 08/28/20 04:48 08/28/20 04:48 ABG, PT/INR, D-dimer: PT/INR, D-dimer PT 18.9 Sec. (12.2-14.9) H 08/25/20 17:30 INR 1.52 (0.87-1.13) H 08/25/20 17:30 Abnormal lab findings: Abnormal Labs 08/23/20 08/23/20 08/23/20 23:18 23:18 23:18 WBC RBC 3.29 L Hgb 9.1 L Hct 28.9 L RDW 18.8 H [place] % (Auto) 8.5 H [place] # (Auto) 0.9 H Seg Neutrophils % 71.7 H PT 22.8 H INR 1.97 H APTT 54.8 H Sodium 135 L Chloride 91.2 L Carbon Dioxide BUN Creatinine 3.4 H Glucose 156 H POC Glucose Calcium 7.9 L ALT < 5 L Alkaline Phosphatase 589 H Total Protein 5.3 L Albumin 3.0 L Crossmatch 08/24/20 08/24/20 08/24/20 00:55 07:29 07:47 WBC 11.7 H RBC Hgb Hct RDW 17.0 H [place] % (Auto) [place] # (Auto) Seg Neutrophils % PT INR APTT Sodium Chloride Carbon Dioxide BUN Creatinine Glucose POC Glucose 153 H Calcium ALT Alkaline Phosphatase Total Protein Albumin Crossmatch See Detail 08/24/20 08/24/20 08/24/20 07:47 14:15 17:30 WBC RBC Hgb Hct RDW [place] % (Auto) [place] # (Auto) Seg Neutrophils % PT INR APTT Sodium 133 L Chloride 96.6 L Carbon Dioxide 18 L BUN Creatinine 3.3 H Glucose 156 H POC Glucose 107 H 109 H Calcium 7.6 L ALT Alkaline Phosphatase Total Protein Albumin Crossmatch 08/24/20 08/25/20 08/25/20 21:13 07:52 09:35 WBC RBC Hgb Hct RDW [place] % (Auto) [place] # (Auto) Seg Neutrophils % PT INR APTT Sodium 136 L Chloride Carbon Dioxide BUN 22 H Creatinine 4.4 H Glucose 136 H POC Glucose 148 H 110 H Calcium 7.8 L ALT Alkaline Phosphatase Total Protein Albumin Crossmatch 08/25/20 08/25/20 08/25/20 11:55 17:29 17:30 WBC RBC 3.49 L Hgb Hct RDW 17.5 H [place] % (Auto) 11.0 H [place] # (Auto) 1.0 H Seg Neutrophils % 75.1 H PT INR APTT Sodium Chloride Carbon Dioxide BUN Creatinine Glucose POC Glucose 154 H 155 H Calcium ALT Alkaline Phosphatase Total Protein Albumin Crossmatch 08/25/20 08/26/20 08/26/20 17:30 11:29 15:02 WBC RBC Hgb Hct RDW [place] % (Auto) [place] # (Auto) Seg Neutrophils % PT 18.9 H INR 1.52 H APTT Sodium Chloride Carbon Dioxide BUN Creatinine Glucose POC Glucose 139 H 161 H Calcium ALT Alkaline Phosphatase Total Protein Albumin Crossmatch 08/26/20 08/27/20 21:28 08:34 WBC RBC Hgb Hct RDW [place] % (Auto) [place] # (Auto) Seg Neutrophils % PT INR APTT Sodium Chloride Carbon Dioxide BUN Creatinine Glucose POC Glucose 188 H 126 H Calcium ALT Alkaline Phosphatase Total Protein Albumin Crossmatch Allied health notes reviewed: nursing
--- NOTE | 2020-08-27 15:51 | Progress Note ---
Assessment and Plan Assessment and Plan --Hemorrhage from bleeding fistula/hypotension Current Visit: No Status: Acute Blood pressures reasonable level Continue midodrine 10 mg 3 times a day Supportive care -- Complication of AV fistula[bleeding] Current Visit: No Status: Acute/resolved Patient had sutures placed on the bleeding fistula. Vascular surgeon evaluated the patient s/p vascular procedure 08/24/2020 -Diagnostic Fistulogram with Central Venogram -Angioplasty and Stent of Right Arm AV Graft -Angioplasty and Stent of Right Subclavian Vein -- ESRD (end stage renal disease) on dialysis Current Visit: Yes Status: Acute Patient gets dialysis on Saturday and Saturdays. Hemodialysis per schedule. Nephrology following --Moderate malnutrition; hypoalbuminemia Current Visit: Yes Status: Acute . Albumin 3.0, nutrition supplements and supportive care Nutrition consult if needed --History of seizure disorder; Current Visit: No Status: chronic Seizure precautions, Ativan as needed Resume antiepileptic medications When accurate home medication list is available Cannot drive until cleared by neurology or PMD --Type II diabetes mellitus Current Visit: No Status: chronic Accu-Chek sliding scale coverage ADA diet Insulin as needed -- DVT prophylaxis Current Visit: No Status: Acute We will place patient on sequential compression device meanwhile. No pharmacologic anticoagulation in view of bleeding from AV fistula --Full code status Current Visit: No Status: Acute Patient is full code. Patient will be discharged to [facility] for rehab for another 10 days--son is in the room whom I updated about the patient's condition. Subjective Date of service: 08/27/20 Principal diagnosis: Ac. Hypoxemic resp failure; Hemorrhagic shock; TRACEE; Malfunctioning AV graft Interval history: Brief history :74-year-old female patient with significant history of end-stage renal disease on hemodialysis was admitted with malfunctioning of AV fistula With bleeding, evaluated by vascular, patient underwent vascular procedure and resumed hemodialysis, patient also has seizures On antiepileptic medications, follow physical therapy occupational therapy, awaiting return to SNF /SNF placement I called patient's daughter Ms. Kerri Elias at [phone] and discussed in detail on 08/24/2020 Patient's condition, tests and reports consultants recommendation, and treatment plan. Patient had many questions, I answered all of them and encouraged her to call back if she has any new concerns ; Patient is receiving hemodialysis per schedule, stable to be transferred out of IMCU To the floor 08/26/2020; patient had brief seizure episode, patient is on seizure medications, Ativan as needed Will consult neurology if needed I spoke with Ms. Kerri Elias today when she came visiting her mother, patient's condition treatment And discharge planning, answered all her questions, verbalized understanding 08/27/2020 No seizures in the last 24 hours Waiting for SNF placement History Interval history: I have seen and examined the patient at the bedside Patient's chart and medications reviewed No seizure activity in the last 24 hours Patient is already on antiepileptic medications At the time of my evaluation patient is alert and awake No new complaints Vital signs noted Objective - Constitutional Vitals: Vital Signs - 12hr 08/27/20 09:46 O2 Sat by Pulse 100 Oximetry General appearance: Present: no acute distress, well-nourished - EENT Eyes: PERRL, EOM intact ENT: hearing intact, clear oral mucosa Ears: bilateral: normal - Neck Neck: supple, normal ROM - Respiratory Respiratory effort: normal Respiratory: bilateral: CTA - Breasts Breasts: normal - Cardiovascular Heart rate: 78 Rhythm: regular Heart Sounds: Present: S1 & S2. Absent: gallop, rub Extremities: pulses intact, No edema, normal color, Full ROM - Gastrointestinal General gastrointestinal: Present: soft, non-tender, non-distended, normal bowel sounds - Genitourinary Female genitourinary: normal - Integumentary Integumentary: clear, warm, dry - Musculoskeletal Musculoskeletal: 1, strength equal bilaterally - Neurologic Neurologic: moves all extremities - Psychiatric Psychiatric: memory intact, appropriate mood/affect, intact judgment & insight - Allied health notes Allied health notes reviewed: nursing, case management - Labs CBC & Chem 7: 08/25/20 17:30 08/25/20 09:35 Labs: Abnormal lab results 08/26/20 08/26/20 08/27/20 Range/Units 15:02 21:28 08:34 POC Glucose 161 H 188 H 126 H (70-105) mg/dL 08/27/20 Range/Units 11:54 POC Glucose 132 H (70-105) mg/dL
[2020-08-27] MEDS ORDERED: diphenhydrAMINE 50 MG/ML VIAL IV PRN (17:25)
[2020-08-27] MEDS: FAMOTIDINE 20 MG TAB PO SCH (23:04)
[2020-08-28] MEDS: LORazepam 2 MG/ML VIAL IV PRN (01:54)
[2020-08-28 06:09] LABS: Basophils % (Auto) 0.4 % (0.0-1.8); Eosinophils % (Auto) 0.3 % (0.0-4.3); Hematocrit 29.2 % (30.3-42.9); Hemoglobin 9.8 gm/dl (10.1-14.3); Lymphocytes # (Auto) 2.5 K/mm3 (1.2-5.4); Lymphocytes % (Auto) 24.9 % (13.4-35.0); Mean Corpuscular HGB Conc 34 % (30-34); Mean Corpuscular Volume 91 fl (79-97); Monocytes # (Auto) 1.3 K/mm3 (0.0-0.8); Monocytes % (Auto) 12.7 % (0.0-7.3); Platelet Count 251 K/mm3 (140-440); Red Blood Count 3.22 M/mm3 (3.65-5.03)
[2020-08-28 06:36] LABS: Albumin 2.7 g/dL (3.9-5)
[2020-08-28] MEDS: CINACALCET 30 MG TAB PO SCH (10:26)
[2020-08-28] MEDS: SEVELAMER CARBONATE 800 MG TAB PO SCH ×3 (10:26→17:34)
[2020-08-28] MEDS: MULTIVITAMINS,THER W-MINERALS TAB PO SCH (10:26)
[2020-08-28] MEDS: MIDODRINE 5 MG TAB PO SCH ×3 (10:26→17:34)
[2020-08-28] MEDS: lamoTRIgine 100 MG TAB PO SCH ×2 (10:26→21:52)
[2020-08-28] MEDS: FLUTICASONE PROPIONATE NASAL SPRAY 16 GM NS SCH ×2 (10:44→22:01)
[2020-08-28] MEDS: INSULIN LISPRO 100 UNIT/ML SUB-Q SCH ×4 (10:44→21:52)
--- NOTE | 2020-08-28 12:15 | Progress Note ---
Assessment and Plan 1. ESRD: Patient is on maintenance hemodialysis three times a week, TTS schedule. Meds dosage based on GFR. Hemodialysis: 08/25. Patient refused HD 08/27. 2. FEN: Monitor lytes. 3. Anemia, POA: Monitor H/H. Epogen with HD as needed. 4. Malfunctioning AVG: Presented with bleeding AVG. S/p angioplasty. 5. Seizure disorder. 6. Type II DM: Accu-Chek sliding scale coverage ADA diet. 7. Hypotension: Midodrine. Subjective: Pt was seen and examined at the bedside. Examination: General appearance: well-developed, appears stated age, not in distress HEENT: [place], [place], hearing intact Neck: trachea midline Respiratory: Clear to Auscultation Heart: regular, S1S2, no murmur Gastrointestinal: Soft, normoactive bowel sounds, obese Integumentary: no rash, warm and dry Neurologic: able to move extremities, confused Ext: b/l LE splint noted Hemodialysis access: R arm AVG Subjective Date of service: 08/28/20 Principal diagnosis: Ac. Hypoxemic resp failure; Hemorrhagic shock; TRACEE; Malfunctioning AV graft Objective - Vital Signs Vital signs: Vital Signs - 12hr 08/28/20 08/28/20 08/28/20 02:00 03:54 10:39 Temperature 98.4 F 97.5 F L Pulse Rate 65 67 75 Respiratory 11 L 18 18 Rate Blood Pressure 87/55 144/90 O2 Sat by Pulse 98 95 99 Oximetry 08/28/20 11:33 Temperature 98.0 F Pulse Rate 67 Respiratory 18 Rate Blood Pressure 104/39 O2 Sat by Pulse 99 Oximetry - Lab 08/28/20 04:48 08/29/20 08:07 Most recent lab results Calcium 7.0 mg/dL (8.4-10.2) L 08/28/20 04:48 Medications & Allergies - Medications Allergies/Adverse Reactions: Allergies sulfacetamide [From Sulfamide] Allergy (Verified 03/06/17 00:22) Anaphylaxis Home Medications: Home Medications Medication Instructions Recorded Confirmed Last Taken Type Apixaban [Eliquis] 5 mg PO BID 03/05/17 08/24/20 Unknown History Colchicine [Colcrys] 0.6 mg PO Q12HR PRN 03/05/17 08/24/20 Unknown History Fluticasone [Flonase] 1 spray NS BID 03/05/17 08/24/20 Unknown History Pantoprazole [Protonix TAB] 20 mg PO QDAY 03/05/17 08/24/20 Unknown History sevelamer HCL [Renagel] 800 mg PO TIDWM 03/05/17 08/24/20 Unknown History Acetaminophen 650 mg PO Q6HR PRN 08/24/20 08/24/20 Unknown History Cholecalciferol (Vitamin D3) 50,000 unit PO 1XW 08/24/20 08/24/20 Unknown History Cinacalcet HCl [Sensipar] 30 mg PO DAILY 08/24/20 08/24/20 Unknown History DUONEB *Not for PRN Use* 1 neb INHALATION Q4H PRN 08/24/20 08/26/20 Unknown History Insulin Glargine,Hum.rec.anlog 10 units SUB-Q QHS 08/24/20 08/24/20 Unknown History [Semglee] Insulin Lispro [Admelog] See Protocol SQ ACHS 08/24/20 08/24/20 Unknown History Lidocaine [Lidoderm] 1 patch TD DAILY 08/24/20 08/26/20 Unknown History Multivitamin Tab W-MINERAL 1 each PO DAILY 08/24/20 08/24/20 Unknown History [Multiple Vitamin/Mineral (Theragran M)] Ramelteon [Rozerem] 8 mg PO QHS 08/24/20 08/24/20 Unknown History lamoTRIgine [LaMICtal] 100 mg PO Q12HR 08/24/20 08/24/20 Unknown History Active Medications: Generic Name Dose Route Start Last Admin Trade Name Freq PRN Reason Stop Dose Admin Cinacalcet 30 mg 08/25/20 10:00 08/28/20 10:26 Cinacalcet 30 Mg Tab PO 30 mg DAILY RITESH Administration Colchicine 0.6 mg 08/24/20 16:27 Colchicine 0.6 Mg Tab PO Q12HR PRN Gout Dextrose 50 ml 08/24/20 01:20 Dextrose 50% In Water (25gm) 50 Ml Syringe IV Q30MIN PRN Hypoglycemia Protocol Diphenhydramine HCl 25 mg 08/27/20 17:25 08/27/20 23:03 Diphenhydramine 50 Mg/Ml Vial IV 25 mg Q6H PRN Administration Itching Ergocalciferol 50,000 unit 08/31/20 10:00 Ergocalciferol (Vit D2) 50,000 Unit Cap PO We [facility] Famotidine 20 mg 08/24/20 22:00 08/27/20 23:04 Famotidine 20 Mg Tab PO 20 mg QHS RITESH Administration Fluticasone Propionate 50 mcg 08/24/20 22:00 08/28/20 10:44 Fluticasone Propionate Nasal [place] 16 Gm NS 50 mcg BID RITESH Administration Hydromorphone HCl 0.25 mg 08/25/20 13:48 08/26/20 12:49 Hydromorphone 1 Mg/1 Ml Inj IV 0.25 mg Q6H PRN Administration Pain , Severe (7-10) Sodium Chloride 100 mls @ 999 mls/hr 08/24/20 16:05 Nacl 0.9% IV FAUSTINA PRN Hypotension Insulin Human Lispro 0 unit 08/24/20 07:30 08/28/20 10:44 Insulin Lispro 100 Unit/Ml SUB-Q Not Given ACHS [facility] Protocol Lamotrigine 100 mg 08/24/20 22:00 08/28/20 10:26 Lamotrigine 100 Mg Tab PO 100 mg Q12HR RITESH Administration Lorazepam 2 mg 08/26/20 16:23 08/28/20 01:54 Lorazepam 2 Mg/Ml Vial IV 2 mg Q2H PRN Administration Seizures Midodrine 10 mg 08/24/20 15:49 08/28/20 10:26 Midodrine 5 Mg Tab PO 10 mg TID@0800,1200,1600 RITESH Administration Multivitamins/Minerals 1 each 08/25/20 10:00 08/28/20 10:26 Multivitamins,Ther W-Minerals Tab PO 1 each DAILY RITESH Administration Ondansetron HCl 4 mg 08/24/20 01:20 08/26/20 15:59 Ondansetron 4 Mg/2 Ml Inj IV 4 mg Q8H PRN Administration Nausea And Vomiting Oxycodone/Acetaminophen 1 tab 08/25/20 13:48 08/27/20 13:52 Oxycodone /Acetaminophen 5-325mg Tab PO 1 tab Q6H PRN Administration Pain, Moderate (4-6) Sevelamer Carbonate 800 mg 08/24/20 18:00 08/28/20 10:26 Sevelamer Carbonate 800 Mg Tab PO 800 mg AC RITESH Administration Sodium Chloride 10 ml 08/24/20 10:00 08/28/20 10:26 Sodium Chloride 0.9% 10 Ml Flush Syringe IV 10 ml BID RITESH Administration Sodium Chloride 10 ml 08/24/20 01:20 Sodium Chloride 0.9% 10 Ml Flush Syringe IV PRN PRN LINE FLUSH
[2020-08-28] MEDS: HYDROmorphone 1 MG/1 ML INJ IV PRN ×2 (13:00→17:35)
--- NOTE | 2020-08-28 14:47 | Progress Note ---
Assessment and Plan Assessment and Plan --Hemorrhage from bleeding fistula/hypotension Current Visit: No Status: Acute Blood pressures reasonable level Continue midodrine 10 mg 3 times a day Supportive care -- Complication of AV fistula[bleeding] Current Visit: No Status: Acute/resolved Patient had sutures placed on the bleeding fistula. Vascular surgeon evaluated the patient s/p vascular procedure 08/24/2020 -Diagnostic Fistulogram with Central Venogram -Angioplasty and Stent of Right Arm AV Graft -Angioplasty and Stent of Right Subclavian Vein -- ESRD (end stage renal disease) on dialysis Current Visit: Yes Status: Acute Patient gets dialysis on Saturday and Saturdays. Hemodialysis per schedule. Nephrology following --Moderate malnutrition; hypoalbuminemia Current Visit: Yes Status: Acute . Albumin 3.0, nutrition supplements and supportive care Nutrition consult if needed --History of seizure disorder; Current Visit: No Status: chronic Seizure precautions, Ativan as needed Resume antiepileptic medications When accurate home medication list is available Cannot drive until cleared by neurology or PMD --Type II diabetes mellitus Current Visit: No Status: chronic Accu-Chek sliding scale coverage ADA diet Insulin as needed -- DVT prophylaxis Current Visit: No Status: Acute We will place patient on sequential compression device meanwhile. No pharmacologic anticoagulation in view of bleeding from AV fistula --Full code status Current Visit: No Status: Acute Patient is full code. Patient will be discharged to [facility] for rehab for another 10 days--son is in the room whom I updated about the patient's condition. Subjective Date of service: 08/28/20 Principal diagnosis: Ac. Hypoxemic resp failure; Hemorrhagic shock; TRACEE; Malfunctioning AV graft Interval history: Brief history :74-year-old female patient with significant history of end-stage renal disease on hemodialysis was admitted with malfunctioning of AV fistula With bleeding, evaluated by vascular, patient underwent vascular procedure and resumed hemodialysis, patient also has seizures On antiepileptic medications, follow physical therapy occupational therapy, awaiting return to SNF /SNF placement I called patient's daughter Ms. Kerri Elias at [phone] and discussed in detail on 08/24/2020 Patient's condition, tests and reports consultants recommendation, and treatment plan. Patient had many questions, I answered all of them and encouraged her to call back if she has any new concerns ; Patient is receiving hemodialysis per schedule, stable to be transferred out of IMCU To the floor 08/26/2020; patient had brief seizure episode, patient is on seizure medications, Ativan as needed Will consult neurology if needed I spoke with Ms. Kerri Elias today when she came visiting her mother, patient's condition treatment And discharge planning, answered all her questions, verbalized understanding 08/27/2020 No seizures in the last 24 hours Waiting for SNF placement 08/28/2020 Waiting for placement History Interval history: I have seen and examined the patient at the bedside Patient's chart and medications reviewed No seizure activity in the last 24 hours Patient is already on antiepileptic medications At the time of my evaluation patient is alert and awake No new complaints Vital signs noted Objective - Constitutional Vitals: Vital Signs - 12hr 08/28/20 08/28/20 08/28/20 03:54 10:00 10:39 Temperature 98.4 F 97.5 F L Pulse Rate 67 66 75 Pulse Rate [ 66 From Monitor] Pulse Rate [ 66 Right Radial] Respiratory 18 18 18 Rate Blood Pressure 87/55 144/90 O2 Sat by Pulse 95 100 99 Oximetry 08/28/20 11:33 Temperature 98.0 F Pulse Rate 67 Pulse Rate [ From Monitor] Pulse Rate [ Right Radial] Respiratory 18 Rate Blood Pressure 104/39 O2 Sat by Pulse 99 Oximetry General appearance: Present: no acute distress, well-nourished - EENT Eyes: PERRL, EOM intact ENT: hearing intact, clear oral mucosa Ears: bilateral: normal - Neck Neck: supple, normal ROM - Respiratory Details: 78 Respiratory effort: normal Respiratory: bilateral: CTA - Breasts Breasts: normal - Cardiovascular Rhythm: regular Heart Sounds: Present: S1 & S2. Absent: gallop, rub Extremities: pulses intact, No edema, normal color, Full ROM - Gastrointestinal General gastrointestinal: Present: soft, non-tender, non-distended, normal bowel sounds - Genitourinary Female genitourinary: normal - Integumentary Integumentary: clear, warm, dry - Musculoskeletal Musculoskeletal: 1, strength equal bilaterally - Neurologic Neurologic: moves all extremities - Psychiatric Psychiatric: memory intact, appropriate mood/affect, intact judgment & insight - Labs CBC & Chem 7: 08/28/20 04:48 08/29/20 08:07 Labs: Abnormal lab results 08/27/20 08/27/20 08/27/20 Range/Units 11:54 17:31 20:51 RBC (3.65-5.03) M/mm3 Hgb (10.1-14.3) gm/dl Hct (30.3-42.9) % RDW (13.2-15.2) % [place] % (Auto) (0.0-7.3) % [place] # (Auto) (0.0-0.8) K/mm3 Potassium (3.6-5.0) mmol/L BUN (7-17) mg/dL Creatinine (0.6-1.2) mg/dL Glucose (65-100) mg/dL POC Glucose 132 H 160 H 145 H (70-105) mg/dL Calcium (8.4-10.2) mg/dL Alkaline Phosphatase (35-129) units/L Total Protein (6.3-8.2) g/dL Albumin (3.9-5) g/dL 08/28/20 08/28/20 08/28/20 Range/Units 04:48 04:48 11:24 RBC 3.22 L (3.65-5.03) M/mm3 Hgb 9.8 L (10.1-14.3) gm/dl Hct 29.2 L (30.3-42.9) % RDW 18.0 H (13.2-15.2) % [place] % (Auto) 12.7 H (0.0-7.3) % [place] # (Auto) 1.3 H (0.0-0.8) K/mm3 Potassium 3.5 L (3.6-5.0) mmol/L BUN 21 H (7-17) mg/dL Creatinine 4.6 H (0.6-1.2) mg/dL Glucose 120 H (65-100) mg/dL POC Glucose 143 H (70-105) mg/dL Calcium 7.0 L (8.4-10.2) mg/dL Alkaline Phosphatase 465 H (35-129) units/L Total Protein 5.4 L (6.3-8.2) g/dL Albumin 2.7 L (3.9-5) g/dL
--- NOTE | 2020-08-28 15:31 | Progress Note ---
Assessment and Plan Acute Hypoxemic respiratory failure Hemorrhagic shock ESRD on dialysis Malfunctioning right upper extremity arteriovenous graft DM II H/O pulmonary embolism Seizure disorder Dementia Obesity Anemia that is normocytic Coagulopathy Gout History of sleep apnea - neurology evlautaion ongoing - continue Lamictal as AED - continue BIPAP scheduled qhs re: TERENCE - continue care as below otherwise; - continue HD/UF for toxin and volume clearance - continue Midodrine for BP support - continue accuchecks with glycemic control per SSI for target blood glucose of < 180 mg/dL; avoid hypoglycemia - continue to wean supplemental oxygen for target O2 sat's > 90% acutely - Aspiration precautions - prn bronchodilators with pulmonary hygiene per RT - avoid nephrotoxins, renally dose all medications - continue to avoid benzodiazepine's, reduce the possibility of delirium - AB's per ID rec's - prn analgesia per pain score - Maintenance of sleep-wake cycle, avoid delirium - G.I. & VTE prophylaxis - PT/OT/ROM exercises - mobility protocols for pressure ulcer prophylaxis - Monitor hemodynamics closely - continue other care per attending / other consultants - discharge planning ongoing concurrently COVID SPECIFIC INTERVENTIONS - COVID-19 PCR negative .... Re-evaluate in am & prn Subjective Date of service: 08/28/20 Principal diagnosis: Ac. Hypoxemic resp failure; Hemorrhagic shock; TRACEE; Malfunc tioning AV graft Interval history: Patient is seen today for: Acute Hypoxemic respiratory failure; Hemorrhagic shock; TRACEE on dialysis; Malfunctioning right upper extremity arteriovenous graft; DM II; H/O pulmonary embolism; TERENCE; Seizure disorder Seen and examined at bedside; 24hour events reviewed; nursing and respiratory care staff consulted; no adverse overnight events reported to me; resting in bed; Objective Vital Signs - 12hr 08/28/20 08/28/20 08/28/20 03:54 10:00 10:39 Temperature 98.4 F 97.5 F L Pulse Rate 67 66 75 Pulse Rate [ 66 From Monitor] Pulse Rate [ 66 Right Radial] Respiratory 18 18 18 Rate Blood Pressure 87/55 144/90 O2 Sat by Pulse 95 100 99 Oximetry 08/28/20 11:33 Temperature 98.0 F Pulse Rate 67 Pulse Rate [ From Monitor] Pulse Rate [ Right Radial] Respiratory 18 Rate Blood Pressure 104/39 O2 Sat by Pulse 99 Oximetry Constitutional: no acute distress, other (elderly obese female without increased respiratory effort at rest) Eyes: non-icteric ENT: oropharynx moist Neck: supple, no lymphadenopathy, no JVD Effort: normal Ascultation: Bilateral: rhonchi Percussion: Bilateral: not dull Cardiovascular: regular rate and rhythm Gastrointestinal: normoactive bowel sounds, soft, non-tender, non-distended (protuberant) Integumentary: rash Extremities: no cyanosis, no edema, pulses normal, no ischemia or petechiae Neurologic: non-focal exam (grossly), pupils equal and round, CN II-XII normal, other (pedal contractures) Psychiatric: mood appropriate, affect normal, other (poor insight and judgment) CBC and BMP: 08/28/20 04:48 08/28/20 04:48 ABG, PT/INR, D-dimer: PT/INR, D-dimer PT 18.9 Sec. (12.2-14.9) H 08/25/20 17:30 INR 1.52 (0.87-1.13) H 08/25/20 17:30 Abnormal lab findings: Abnormal Labs 08/23/20 08/23/20 08/23/20 23:18 23:18 23:18 WBC RBC 3.29 L Hgb 9.1 L Hct 28.9 L RDW 18.8 H [place] % (Auto) 8.5 H [place] # (Auto) 0.9 H Seg Neutrophils % 71.7 H PT 22.8 H INR 1.97 H APTT 54.8 H Sodium 135 L Potassium Chloride 91.2 L Carbon Dioxide BUN Creatinine 3.4 H Glucose 156 H POC Glucose Calcium 7.9 L ALT < 5 L Alkaline Phosphatase 589 H Total Protein 5.3 L Albumin 3.0 L Crossmatch 08/24/20 08/24/20 08/24/20 00:55 07:29 07:47 WBC 11.7 H RBC Hgb Hct RDW 17.0 H [place] % (Auto) [place] # (Auto) Seg Neutrophils % PT INR APTT Sodium Potassium Chloride Carbon Dioxide BUN Creatinine Glucose POC Glucose 153 H Calcium ALT Alkaline Phosphatase Total Protein Albumin Crossmatch See Detail 08/24/20 08/24/20 08/24/20 07:47 14:15 17:30 WBC RBC Hgb Hct RDW [place] % (Auto) [place] # (Auto) Seg Neutrophils % PT INR APTT Sodium 133 L Potassium Chloride 96.6 L Carbon Dioxide 18 L BUN Creatinine 3.3 H Glucose 156 H POC Glucose 107 H 109 H Calcium 7.6 L ALT Alkaline Phosphatase Total Protein Albumin Crossmatch 08/24/20 08/25/20 08/25/20 21:13 07:52 09:35 WBC RBC Hgb Hct RDW [place] % (Auto) [place] # (Auto) Seg Neutrophils % PT INR APTT Sodium 136 L Potassium Chloride Carbon Dioxide BUN 22 H Creatinine 4.4 H Glucose 136 H POC Glucose 148 H 110 H Calcium 7.8 L ALT Alkaline Phosphatase Total Protein Albumin Crossmatch 08/25/20 08/25/20 08/25/20 11:55 17:29 17:30 WBC RBC 3.49 L Hgb Hct RDW 17.5 H [place] % (Auto) 11.0 H [place] # (Auto) 1.0 H Seg Neutrophils % 75.1 H PT INR APTT Sodium Potassium Chloride Carbon Dioxide BUN Creatinine Glucose POC Glucose 154 H 155 H Calcium ALT Alkaline Phosphatase Total Protein Albumin Crossmatch 08/25/20 08/26/20 08/26/20 17:30 11:29 15:02 WBC RBC Hgb Hct RDW [place] % (Auto) [place] # (Auto) Seg Neutrophils % PT 18.9 H INR 1.52 H APTT Sodium Potassium Chloride Carbon Dioxide BUN Creatinine Glucose POC Glucose 139 H 161 H Calcium ALT Alkaline Phosphatase Total Protein Albumin Crossmatch 08/26/20 08/27/20 08/27/20 21:28 08:34 11:54 WBC RBC Hgb Hct RDW [place] % (Auto) [place] # (Auto) Seg Neutrophils % PT INR APTT Sodium Potassium Chloride Carbon Dioxide BUN Creatinine Glucose POC Glucose 188 H 126 H 132 H Calcium ALT Alkaline Phosphatase Total Protein Albumin Crossmatch 08/27/20 08/27/20 08/28/20 17:31 20:51 04:48 WBC RBC 3.22 L Hgb 9.8 L Hct 29.2 L RDW 18.0 H [place] % (Auto) 12.7 H [place] # (Auto) 1.3 H Seg Neutrophils % PT INR APTT Sodium Potassium Chloride Carbon Dioxide BUN Creatinine Glucose POC Glucose 160 H 145 H Calcium ALT Alkaline Phosphatase Total Protein Albumin Crossmatch 08/28/20 08/28/20 04:48 11:24 WBC RBC Hgb Hct RDW [place] % (Auto) [place] # (Auto) Seg Neutrophils % PT INR APTT Sodium Potassium 3.5 L Chloride Carbon Dioxide BUN 21 H Creatinine 4.6 H Glucose 120 H POC Glucose 143 H Calcium 7.0 L ALT Alkaline Phosphatase 465 H Total Protein 5.4 L Albumin 2.7 L Crossmatch Allied health notes reviewed: nursing
[2020-08-28] MEDS: FAMOTIDINE 20 MG TAB PO SCH (21:52)
[2020-08-29 08:54] LABS: Calcium 7.2 mg/dL (8.4-10.2)
[2020-08-29] MEDS: lamoTRIgine 100 MG TAB PO SCH ×2 (10:17→22:16)
[2020-08-29] MEDS: CINACALCET 30 MG TAB PO SCH (10:17)
[2020-08-29] MEDS: MIDODRINE 5 MG TAB PO SCH ×4 (10:17→18:04)
[2020-08-29] MEDS: FLUTICASONE PROPIONATE NASAL SPRAY 16 GM NS SCH ×2 (10:18→22:17)
[2020-08-29] MEDS: MULTIVITAMINS,THER W-MINERALS TAB PO SCH (10:18)
[2020-08-29] MEDS: SEVELAMER CARBONATE 800 MG TAB PO SCH ×3 (10:20→18:34)
[2020-08-29] MEDS: INSULIN LISPRO 100 UNIT/ML SUB-Q SCH ×4 (10:21→22:19)
[2020-08-29] MEDS ORDERED: SODIUM CHLORIDE 0.9% 100 ML IV PRN (12:26)
--- NOTE | 2020-08-29 14:39 | Progress Note ---
Assessment and Plan 72-year-old -Serbian female Obese Obese. No acute respiratory distress. O2 saturationwith known history of end-stage renal disease on dialysis, diabetes mellitus, pulmonary embolism, seizure disorder, GERD, dementia, major depressive disorder, gout, sleep apnea, lumbar radiculopathy, presenting to the emergency room today with complaint of bleeding from the right upper arm AV fistula. Patient is currently a [facility] where she is having rehabilitation. She is currently on apixaban by 5 mg daily and was said to have been bleeding from her fistula site earlier today. Upon arrival of EMS she was said to be hypotensive with a blood pressure of 90/40 mmHg. Pressure and dressing was applied to the bleeding site however bleeding persisted. Patient normally resides with daughter was was said to have had a broken right humerus and right distal tibia during transportation for hemodialysis. She is currently undergoing rehabilitation. She normally gets her dialysis at [facility]. Upon arrival in the emergency room, patient bleeding fistula was sutured by the ER physician. Vascular surgeon Dr. Gutierrez was also consulted. Recommendation is to keep patient n.p.o. overnight for possible intervention in the a.m. Hemoglobin was about 9.1 and hematocrit of 28.9. Patient was transfused with O- negative PRBC. Patient sleeping on room air at this time. O2 saturation 94%. No acute respiratory distress. Chest xray 08/25/20 reported No definite acute disease. - Patient Problems (1) ESRD (end stage renal disease) on dialysis Current Visit: Yes Status: Acute Plan to address problem: Management as per nephrology. (2) Diabetes mellitus Current Visit: No Status: Acute Plan to address problem: Management as per primary care. (3) Sialolithiasis of submandibular gland Current Visit: No Status: Acute Plan to address problem: Consult ENT. (4) Tongue swelling Current Visit: No Status: Acute Plan to address problem: Management as per primary care. Subjective Date of service: 08/29/20 Principal diagnosis: Ac. Hypoxemic resp failure; Hemorrhagic shock; TRACEE; Malfunctioning AV graft Interval history: 72-year-old -Serbian female Obese Obese. No acute respiratory distress. O2 saturation with known history of end-stage renal disease on dialysis, diabetes mellitus, pulmonary embolism, seizure disorder, GERD, dementia, major depressive disorder, gout, sleep apnea, lumbar radiculopathy, presenting to the emergency room today with complaint of bleeding from the right upper arm AV fistula. Patient is currently a resident of a penit[facility]iary facility where she is having rehabilitation. She is currently on apixaban by 5 mg daily and was said to have been bleeding from her fistula site earlier today. Upon arrival of EMS she was said to be hypotensive with a blood pressure of 90/40 mmHg. Pressure and dressing was applied to the bleeding site however bleeding persisted. Patient normally resides with daughter was was said to have had a broken right humerus and right distal tibia during transportation for hemodialysis. She is currently undergoing rehabilitation. She normally gets her dialysis at [facility]. Upon arrival in the emergency room, patient bleeding fistula was sutured by the ER physician. Vascular surgeon Dr. Gutierrez was also consulted. Recommendation is to keep patient n.p.o. overnight for possible intervention in the a.m. Hemoglobin was about 9.1 and hematocrit of 28.9. Patient was transfused with O- negative PRBC. Patient sleeping on room air at this time. O2 saturation 94%. No acute respiratory distress. Chest xray 08/25/20 reported No definite acute disease. Objective Vital Signs - 12hr 08/29/20 08/29/20 05:07 08:23 Temperature 98.4 F Pulse Rate 75 Respiratory 20 Rate Blood Pressure 158/51 O2 Sat by Pulse 99 97 Oximetry Constitutional: no acute distress, asleep, other (elderly obese female without increased respiratory effort at rest) Eyes: non-icteric ENT: oropharynx moist Neck: supple, no lymphadenopathy, no JVD Effort: normal Ascultation: Bilateral: rhonchi Percussion: Bilateral: not dull Cardiovascular: regular rate and rhythm Gastrointestinal: normoactive bowel sounds, soft, non-tender, non-distended (pro tuberant) Integumentary: rash Extremities: no cyanosis, no edema, pulses normal, no ischemia or petechiae Neurologic: non-focal exam (grossly), pupils equal and round, CN II-XII normal, other (pedal contractures) Psychiatric: mood appropriate, affect normal, other (poor insight and judgment) CBC and BMP: 08/28/20 04:48 08/29/20 08:07 ABG, PT/INR, D-dimer: PT/INR, D-dimer PT 18.9 Sec. (12.2-14.9) H 08/25/20 17:30 INR 1.52 (0.87-1.13) H 08/25/20 17:30 Abnormal lab findings: Abnormal Labs 08/23/20 08/23/20 08/23/20 23:18 23:18 23:18 WBC RBC 3.29 L Hgb 9.1 L Hct 28.9 L RDW 18.8 H Edmunds % (Auto) 8.5 H Edmunds # (Auto) 0.9 H Seg Neutrophils % 71.7 H PT 22.8 H INR 1.97 H APTT 54.8 H Sodium 135 L Potassium Chloride 91.2 L Carbon Dioxide BUN Creatinine 3.4 H Glucose 156 H POC Glucose Calcium 7.9 L ALT < 5 L Alkaline Phosphatase 589 H Total Protein 5.3 L Albumin 3.0 L Crossmatch 08/24/20 08/24/20 08/24/20 00:55 07:29 07:47 WBC 11.7 H RBC Hgb Hct RDW 17.0 H Edmunds % (Auto) Edmunds # (Auto) Seg Neutrophils % PT INR APTT Sodium Potassium Chloride Carbon Dioxide BUN Creatinine Glucose POC Glucose 153 H Calcium ALT Alkaline Phosphatase Total Protein Albumin Crossmatch See Detail 08/24/20 08/24/20 08/24/20 07:47 14:15 17:30 WBC RBC Hgb Hct RDW Edmunds % (Auto) Edmunds # (Auto) Seg Neutrophils % PT INR APTT Sodium 133 L Potassium Chloride 96.6 L Carbon Dioxide 18 L BUN Creatinine 3.3 H Glucose 156 H POC Glucose 107 H 109 H Calcium 7.6 L ALT Alkaline Phosphatase Total Protein Albumin Crossmatch 08/24/20 08/25/20 08/25/20 21:13 07:52 09:35 WBC RBC Hgb Hct RDW Edmunds % (Auto) Edmunds # (Auto) Seg Neutrophils % PT INR APTT Sodium 136 L Potassium Chloride Carbon Dioxide BUN 22 H Creatinine 4.4 H Glucose 136 H POC Glucose 148 H 110 H Calcium 7.8 L ALT Alkaline Phosphatase Total Protein Albumin Crossmatch 08/25/20 08/25/20 08/25/20 11:55 17:29 17:30 WBC RBC 3.49 L Hgb Hct RDW 17.5 H Edmunds % (Auto) 11.0 H Edmunds # (Auto) 1.0 H Seg Neutrophils % 75.1 H PT INR APTT Sodium Potassium Chloride Carbon Dioxide BUN Creatinine Glucose POC Glucose 154 H 155 H Calcium ALT Alkaline Phosphatase Total Protein Albumin Crossmatch 08/25/20 08/26/20 08/26/20 17:30 11:29 15:02 WBC RBC Hgb Hct RDW Edmunds % (Auto) Edmunds # (Auto) Seg Neutrophils % PT 18.9 H INR 1.52 H APTT Sodium Potassium Chloride Carbon Dioxide BUN Creatinine Glucose POC Glucose 139 H 161 H Calcium ALT Alkaline Phosphatase Total Protein Albumin Crossmatch 08/26/20 08/27/20 08/27/20 21:28 08:34 11:54 WBC RBC Hgb Hct RDW Edmunds % (Auto) Edmunds # (Auto) Seg Neutrophils % PT INR APTT Sodium Potassium Chloride Carbon Dioxide BUN Creatinine Glucose POC Glucose 188 H 126 H 132 H Calcium ALT Alkaline Phosphatase Total Protein Albumin Crossmatch 08/27/20 08/27/20 08/28/20 17:31 20:51 04:48 WBC RBC 3.22 L Hgb 9.8 L Hct 29.2 L RDW 18.0 H Edmunds % (Auto) 12.7 H Edmunds # (Auto) 1.3 H Seg Neutrophils % PT INR APTT Sodium Potassium Chloride Carbon Dioxide BUN Creatinine Glucose POC Glucose 160 H 145 H Calcium ALT Alkaline Phosphatase Total Protein Albumin Crossmatch 08/28/20 08/28/20 08/28/20 04:48 11:24 15:32 WBC RBC Hgb Hct RDW Edmunds % (Auto) Edmunds # (Auto) Seg Neutrophils % PT INR APTT Sodium Potassium 3.5 L Chloride Carbon Dioxide BUN 21 H Creatinine 4.6 H Glucose 120 H POC Glucose 143 H 150 H Calcium 7.0 L ALT Alkaline Phosphatase 465 H Total Protein 5.4 L Albumin 2.7 L Crossmatch 08/28/20 08/29/20 21:18 08:07 WBC RBC Hgb Hct RDW Edmunds % (Auto) Edmunds # (Auto) Seg Neutrophils % PT INR APTT Sodium Potassium Chloride 95.1 L Carbon Dioxide BUN 25 H Creatinine 5.4 H Glucose 114 H POC Glucose 150 H Calcium 7.2 L ALT Alkaline Phosphatase Total Protein Albumin Crossmatch Chest x-ray: report reviewed, image reviewed Additional Studies: CHEST 1 VIEW 08/25/20 INDICATION: Hypoxemia COMPARISON: None FINDINGS: Support devices: None Heart: Mildly enlarged. Right subclavian and left axillary arterial grafts. Lungs/Pleura: Suboptimal inspiration, but no convincing evidence of acute disease. IMPRESSION: 1. No definite acute disease. Allied health notes reviewed: nursing
--- NOTE | 2020-08-29 15:18 | Progress Note ---
Assessment and Plan 1. ESRD: Patient is on maintenance hemodialysis three times a week, TTS schedule. Meds dosage based on GFR. Hemodialysis: 08/25, 08/29. 2. FEN: Monitor lytes. 3. Anemia, POA: Monitor H/H. Epogen with HD as needed. 4. Malfunctioning AVG: Presented with bleeding AVG. S/p angioplasty. 5. Seizure disorder. 6. Type II DM: Accu-Chek sliding scale coverage ADA diet. 7. Hypotension: Midodrine. Subjective: Pt was seen and examined at the bedside. Examination: General appearance: well-developed, appears stated age, not in distress HEENT: ATNC, LORETTA, hearing intact Neck: neck supple, trachea midline Respiratory: Clear to Auscultation Heart: regular, S1S2, no murmur Gastrointestinal: Soft, normoactive bowel sounds, obese Integumentary: no rash, warm and dry Neurologic: able to move extremities, confused Ext: b/l LE splint noted Hemodialysis access: R arm AVG Subjective Date of service: 08/29/20 Principal diagnosis: Ac. Hypoxemic resp failure; Hemorrhagic shock; TRACEE; Malfunctioning AV graft Objective - Vital Signs Vital signs: Vital Signs - 12hr 08/29/20 08/29/20 08/29/20 05:07 08:23 14:30 Temperature 98.4 F 98.2 F Pulse Rate 75 76 Respiratory 20 18 Rate Blood Pressure 158/51 157/93 O2 Sat by Pulse 99 97 Oximetry 08/29/20 08/29/20 08/29/20 14:36 14:45 15:00 Temperature Pulse Rate 78 73 72 Respiratory Rate Blood Pressure 141/62 129/73 116/57 O2 Sat by Pulse Oximetry 08/29/20 15:15 Temperature Pulse Rate 73 Respiratory Rate Blood Pressure 112/56 O2 Sat by Pulse Oximetry - Lab 08/28/20 04:48 08/29/20 08:07 Most recent lab results Calcium 7.2 mg/dL (8.4-10.2) L 08/29/20 08:07 Medications & Allergies - Medications Allergies/Adverse Reactions: Allergies sulfacetamide [From Sulfamide] Allergy (Verified 03/06/17 00:22) Anaphylaxis Home Medications: Home Medications Medication Instructions Recorded Confirmed Last Taken Type Apixaban [Eliquis] 5 mg PO BID 03/05/17 08/24/20 Unknown History Colchicine [Colcrys] 0.6 mg PO Q12HR PRN 03/05/17 08/24/20 Unknown History Fluticasone [Flonase] 1 spray NS BID 03/05/17 08/24/20 Unknown History Pantoprazole [Protonix TAB] 20 mg PO QDAY 03/05/17 08/24/20 Unknown History sevelamer HCL [Renagel] 800 mg PO TIDWM 03/05/17 08/24/20 Unknown History Acetaminophen 650 mg PO Q6HR PRN 08/24/20 08/24/20 Unknown History Cholecalciferol (Vitamin D3) 50,000 unit PO 1XW 08/24/20 08/24/20 Unknown History Cinacalcet HCl [Sensipar] 30 mg PO DAILY 08/24/20 08/24/20 Unknown History DUONEB *Not for PRN Use* 1 neb INHALATION Q4H PRN 08/24/20 08/26/20 Unknown History Insulin Glargine,Hum.rec.anlog 10 units SUB-Q QHS 08/24/20 08/24/20 Unknown History [Semglee] Insulin Lispro [Admelog] See Protocol SQ ACHS 08/24/20 08/24/20 Unknown History Lidocaine [Lidoderm] 1 patch TD DAILY 08/24/20 08/26/20 Unknown History Multivitamin Tab W-MINERAL 1 each PO DAILY 08/24/20 08/24/20 Unknown History [Multiple Vitamin/Mineral (Theragran M)] Ramelteon [Rozerem] 8 mg PO QHS 08/24/20 08/24/20 Unknown History lamoTRIgine [LaMICtal] 100 mg PO Q12HR 08/24/20 08/24/20 Unknown History Active Medications: Generic Name Dose Route Start Last Admin Trade Name Freq PRN Reason Stop Dose Admin Cinacalcet 30 mg 08/25/20 10:00 08/29/20 10:17 Cinacalcet 30 Mg Tab PO 30 mg DAILY RITESH Administration Colchicine 0.6 mg 08/24/20 16:27 Colchicine 0.6 Mg Tab PO Q12HR PRN Gout Dextrose 50 ml 08/24/20 01:20 Dextrose 50% In Water (25gm) 50 Ml Syringe IV Q30MIN PRN Hypoglycemia Protocol Diphenhydramine HCl 25 mg 08/27/20 17:25 08/27/20 23:03 Diphenhydramine 50 Mg/Ml Vial IV 25 mg Q6H PRN Administration Itching Ergocalciferol 50,000 unit 08/31/20 10:00 Ergocalciferol (Vit D2) 50,000 Unit Cap PO We RITESH Famotidine 20 mg 08/24/20 22:00 08/28/20 21:52 Famotidine 20 Mg Tab PO 20 mg QHS RITESH Administration Fluticasone Propionate 50 mcg 08/24/20 22:00 08/29/20 10:18 Fluticasone Propionate Nasal [place] 16 Gm NS 50 mcg BID RITESH Administration Hydromorphone HCl 0.25 mg 08/25/20 13:48 08/28/20 17:35 Hydromorphone 1 Mg/1 Ml Inj IV 0.25 mg Q6H PRN Administration Pain , Severe (7-10) Sodium Chloride 100 mls @ 999 mls/hr 08/29/20 12:26 Nacl 0.9% IV FAUSTINA PRN Hypotension Insulin Human Lispro 0 unit 08/24/20 07:30 08/29/20 12:59 Insulin Lispro 100 Unit/Ml SUB-Q 1 unit ACHS RITESH Administration Protocol Lamotrigine 100 mg 08/24/20 22:00 08/29/20 10:17 Lamotrigine 100 Mg Tab PO 100 mg Q12HR RITESH Administration Lorazepam 2 mg 08/26/20 16:23 08/28/20 01:54 Lorazepam 2 Mg/Ml Vial IV 2 mg Q2H PRN Administration Seizures Midodrine 10 mg 08/24/20 15:49 08/29/20 12:30 Midodrine 5 Mg Tab PO Not Given TID@0800,1200,1600 [facility] Multivitamins/Minerals 1 each 08/25/20 10:00 08/29/20 10:18 Multivitamins,Ther W-Minerals Tab PO 1 each DAILY [facility] Administration Ondansetron HCl 4 mg 08/24/20 01:20 08/26/20 15:59 Ondansetron 4 Mg/2 Ml Inj IV 4 mg Q8H PRN Administration Nausea And Vomiting Oxycodone/Acetaminophen 1 tab 08/25/20 13:48 08/27/20 13:52 Oxycodone /Acetaminophen 5-325mg Tab PO 1 tab Q6H PRN Administration Pain, Moderate (4-6) Sevelamer Carbonate 800 mg 08/24/20 18:00 08/29/20 12:51 Sevelamer Carbonate 800 Mg Tab PO 800 mg AC RITESH Administration Sodium Chloride 10 ml 08/24/20 10:00 08/29/20 10:18 Sodium Chloride 0.9% 10 Ml Flush Syringe IV 10 ml BID RITESH Administration Sodium Chloride 10 ml 08/24/20 01:20 Sodium Chloride 0.9% 10 Ml Flush Syringe IV PRN PRN LINE FLUSH
[2020-08-29] MEDS: FAMOTIDINE 20 MG TAB PO SCH (22:16)
--- NOTE | 2020-08-30 07:10 | Progress Note ---
Assessment and Plan Assessment and Plan --Hemorrhage from bleeding fistula/hypotension Current Visit: No Status: Acute Blood pressures reasonable level Continue midodrine 10 mg 3 times a day Supportive care -- Complication of AV fistula[bleeding] Current Visit: No Status: Acute/resolved Patient had sutures placed on the bleeding fistula. Vascular surgeon evaluated the patient s/p vascular procedure 08/24/2020 -Diagnostic Fistulogram with Central Venogram -Angioplasty and Stent of Right Arm AV Graft -Angioplasty and Stent of Right Subclavian Vein -- ESRD (end stage renal disease) on dialysis Current Visit: Yes Status: Acute Patient gets dialysis on Saturday and Saturdays. Hemodialysis per schedule. Nephrology following --Moderate malnutrition; hypoalbuminemia Current Visit: Yes Status: Acute . Albumin 3.0, nutrition supplements and supportive care Nutrition consult if needed --History of seizure disorder; Current Visit: No Status: chronic Seizure precautions, Ativan as needed Resume antiepileptic medications When accurate home medication list is available Cannot drive until cleared by neurology or PMD --Type II diabetes mellitus Current Visit: No Status: chronic Accu-Chek sliding scale coverage ADA diet Insulin as needed -- DVT prophylaxis Current Visit: No Status: Acute We will place patient on sequential compression device meanwhile. No pharmacologic anticoagulation in view of bleeding from AV fistula --Full code status Current Visit: No Status: Acute Patient is full code. Patient will be discharged to [facility] for rehab for another 10 days- To discuss with registered nurse hh case manager about the placement- Subjective Date of service: 08/29/20 Principal diagnosis: Ac. Hypoxemic resp failure; Hemorrhagic shock; TRACEE; Malfunctioning AV graft Interval history: Brief history :74-year-old female patient with significant history of end-stage renal disease on hemodialysis was admitted with malfunctioning of AV fistula With bleeding, evaluated by vascular, patient underwent vascular procedure and resumed hemodialysis, patient also has seizures On antiepileptic medications, follow physical therapy occupational therapy, awaiting return to SNF /SNF placement I called patient's daughter Ms. Kerri Elias at [phone] and discussed in detail on 08/24/2020 Patient's condition, tests and reports consultants recommendation, and treatment plan. Patient had many questions, I answered all of them and encouraged her to call back if she has any new concerns ; Patient is receiving hemodialysis per schedule, stable to be transferred out of [facility] To the floor 08/26/2020; patient had brief seizure episode, patient is on seizure medications, Ativan as needed Will consult neurology if needed I spoke with Ms. Kerri Elias today when she came visiting her mother, patient's condition treatment And discharge planning, answered all her questions, verbalized understanding 08/27/2020 No seizures in the last 24 hours Waiting for SNF placement 08/28/2020 Waiting for placement 08/29/2020 Waiting for placement History Interval history: I have seen and examined the patient at the bedside Patient's chart and medications reviewed No seizure activity in the last 24 hours Patient is already on antiepileptic medications At the time of my evaluation patient is alert and awake No new complaints Vital signs noted Objective - Constitutional Vitals: Vital Signs - 12hr 08/29/20 08/29/20 08/30/20 21:15 22:00 04:27 Temperature 97.6 F 98.2 F Pulse Rate 80 70 72 Respiratory 16 16 Rate Blood Pressure 122/55 127/51 O2 Sat by Pulse 93 92 Oximetry General appearance: Present: no acute distress, well-nourished - EENT Eyes: PERRL, EOM intact ENT: hearing intact, clear oral mucosa Ears: bilateral: normal - Neck Neck: supple, normal ROM - Respiratory Respiratory effort: normal Respiratory: bilateral: CTA - Breasts Breasts: normal - Cardiovascular Heart rate: 78 Rhythm: regular Heart Sounds: Present: S1 & S2. Absent: gallop, rub Extremities: pulses intact, No edema, normal color, Full ROM - Gastrointestinal General gastrointestinal: Present: soft, non-tender, non-distended, normal bowel sounds - Genitourinary Female genitourinary: normal - Integumentary Integumentary: clear, warm, dry - Musculoskeletal Musculoskeletal: 1, strength equal bilaterally - Neurologic Neurologic: moves all extremities - Psychiatric Psychiatric: memory intact, appropriate mood/affect, intact judgment & insight - Labs CBC & Chem 7: 08/28/20 04:48 08/29/20 08:07 Labs: Abnormal lab results 08/29/20 08/29/20 08/29/20 Range/Units 08:07 12:39 21:12 Chloride 95.1 L (98-107) mmol/L BUN 25 H (7-17) mg/dL Creatinine 5.4 H (0.6-1.2) mg/dL Glucose 114 H (65-100) mg/dL POC Glucose 171 H 128 H (70-105) mg/dL Calcium 7.2 L (8.4-10.2) mg/dL
[2020-08-30] MEDS: INSULIN LISPRO 100 UNIT/ML SUB-Q SCH ×4 (07:30→22:06)
--- NOTE | 2020-08-30 07:32 | Progress Note ---
Assessment and Plan 1. ESRD: Patient is on maintenance hemodialysis three times a week, TTS schedule. Meds dosage based on GFR. Hemodialysis: 08/25, 08/29. 2. FEN: Monitor lytes. 3. Anemia, POA: Monitor H/H. Epogen with HD as needed. 4. Malfunctioning AVG: Presented with bleeding AVG. S/p angioplasty. 5. Seizure disorder. 6. Type II DM: Accu-Chek sliding scale coverage ADA diet. 7. Hypotension: Midodrine. Subjective: Pt was seen and examined at the bedside. Examination: General appearance: well-developed, appears stated age, not in distress HEENT: ATNC, LORETTA, hearing intact Neck: neck supple, trachea midline Respiratory: Clear to Auscultation Heart: regular, S1S2, no murmur Gastrointestinal: Soft, normoactive bowel sounds, obese Integumentary: no rash, warm and dry Neurologic: sleeping, arousable Ext: b/l LE splint noted Hemodialysis access: R arm AVG Subjective Date of service: 08/30/20 Principal diagnosis: Ac. Hypoxemic resp failure; Hemorrhagic shock; TRACEE; Malfunctioning AV graft Objective - Vital Signs Vital signs: Vital Signs - 12hr 08/29/20 08/29/20 08/30/20 21:15 22:00 04:27 Temperature 97.6 F 98.2 F Pulse Rate 80 70 72 Respiratory 16 16 Rate Blood Pressure 122/55 127/51 O2 Sat by Pulse 93 92 Oximetry - Lab 08/28/20 04:48 08/29/20 08:07 Most recent lab results Calcium 7.2 mg/dL (8.4-10.2) L 08/29/20 08:07 Medications & Allergies - Medications Allergies/Adverse Reactions: Allergies sulfacetamide [From Sulfamide] Allergy (Verified 03/06/17 00:22) Anaphylaxis Home Medications: Home Medications Medication Instructions Recorded Confirmed Last Taken Type Apixaban [Eliquis] 5 mg PO BID 03/05/17 08/24/20 Unknown History Colchicine [Colcrys] 0.6 mg PO Q12HR PRN 03/05/17 08/24/20 Unknown History Fluticasone [Flonase] 1 spray NS BID 03/05/17 08/24/20 Unknown History Pantoprazole [Protonix TAB] 20 mg PO QDAY 03/05/17 08/24/20 Unknown History sevelamer HCL [Renagel] 800 mg PO TIDWM 03/05/17 08/24/20 Unknown History Acetaminophen 650 mg PO Q6HR PRN 08/24/20 08/24/20 Unknown History Cholecalciferol (Vitamin D3) 50,000 unit PO 1XW 08/24/20 08/24/20 Unknown History Cinacalcet HCl [Sensipar] 30 mg PO DAILY 08/24/20 08/24/20 Unknown History DUONEB *Not for PRN Use* 1 neb INHALATION Q4H PRN 08/24/20 08/26/20 Unknown His tory Insulin Glargine,Hum.rec.anlog 10 units SUB-Q QHS 08/24/20 08/24/20 Unknown History [Semglee] Insulin Lispro [Admelog] See Protocol SQ ACHS 08/24/20 08/24/20 Unknown History Lidocaine [Lidoderm] 1 patch TD DAILY 08/24/20 08/26/20 Unknown History Multivitamin Tab W-MINERAL 1 each PO DAILY 08/24/20 08/24/20 Unknown History [Multiple Vitamin/Mineral (Theragran M)] Ramelteon [Rozerem] 8 mg PO QHS 08/24/20 08/24/20 Unknown History lamoTRIgine [LaMICtal] 100 mg PO Q12HR 08/24/20 08/24/20 Unknown History Active Medications: Generic Name Dose Route Start Last Admin Trade Name Freq PRN Reason Stop Dose Admin Cinacalcet 30 mg 08/25/20 10:00 08/29/20 10:17 Cinacalcet 30 Mg Tab PO 30 mg DAILY RITESH Administration Colchicine 0.6 mg 08/24/20 16:27 Colchicine 0.6 Mg Tab PO Q12HR PRN Gout Dextrose 50 ml 08/24/20 01:20 Dextrose 50% In Water (25gm) 50 Ml Syringe IV Q30MIN PRN Hypoglycemia Protocol Diphenhydramine HCl 25 mg 08/27/20 17:25 08/27/20 23:03 Diphenhydramine 50 Mg/Ml Vial IV 25 mg Q6H PRN Administration Itching Ergocalciferol 50,000 unit 08/31/20 10:00 Ergocalciferol (Vit D2) 50,000 Unit Cap PO We RITESH Famotidine 20 mg 08/24/20 22:00 08/29/20 22:16 Famotidine 20 Mg Tab PO 20 mg QHS [facility] Administration Fluticasone Propionate 50 mcg 08/24/20 22:00 08/29/20 22:17 Fluticasone Propionate Nasal [place] 16 Gm NS 50 mcg BID RITESH Administration Hydromorphone HCl 0.25 mg 08/25/20 13:48 08/28/20 17:35 Hydromorphone 1 Mg/1 Ml Inj IV 0.25 mg Q6H PRN Administration Pain , Severe (7-10) Sodium Chloride 100 mls @ 999 mls/hr 08/29/20 12:26 Nacl 0.9% IV FAUSTINA PRN Hypotension Insulin Human Lispro 0 unit 08/24/20 07:30 08/29/20 22:19 Insulin Lispro 100 Unit/Ml SUB-Q Not Given ACHS [facility] Protocol Lamotrigine 100 mg 08/24/20 22:00 08/29/20 22:16 Lamotrigine 100 Mg Tab PO 100 mg Q12HR [facility] Administration Lorazepam 2 mg 08/26/20 16:23 08/28/20 01:54 Lorazepam 2 Mg/Ml Vial IV 2 mg Q2H PRN Administration Seizures Midodrine 10 mg 08/24/20 15:49 08/29/20 18:04 Midodrine 5 Mg Tab PO Not Given TID@0800,1200,1600 [facility] Multivitamins/Minerals 1 each 08/25/20 10:00 08/29/20 10:18 Multivitamins,Ther W-Minerals Tab PO 1 each DAILY [facility] Administration Ondansetron HCl 4 mg 08/24/20 01:20 08/26/20 15:59 Ondansetron 4 Mg/2 Ml Inj IV 4 mg Q8H PRN Administration Nausea And Vomiting Oxycodone/Acetaminophen 1 tab 08/25/20 13:48 08/27/20 13:52 Oxycodone /Acetaminophen 5-325mg Tab PO 1 tab Q6H PRN Administration Pain, Moderate (4-6) Sevelamer Carbonate 800 mg 08/24/20 18:00 08/29/20 18:34 Sevelamer Carbonate 800 Mg Tab PO Not Given AC [facility] Sodium Chloride 10 ml 08/24/20 10:00 08/29/20 22:17 Sodium Chloride 0.9% 10 Ml Flush Syringe IV 10 ml BID RITESH Administration Sodium Chloride 10 ml 08/24/20 01:20 Sodium Chloride 0.9% 10 Ml Flush Syringe IV PRN PRN LINE FLUSH
--- NOTE | 2020-08-30 08:37 | Progress Note ---
Assessment and Plan Assessment and plan: --Hemorrhage from bleeding fistula/hypotension Current Visit: No Status: Acute Continue midodrine 10 mg 3 times a day, -- Complication of AV fistula[bleeding] Current Visit: No Status: Acute/resolved Patient had sutures placed on the bleeding fistula. Vascular surgeon evaluated the patient s/p vascular procedure 08/24/2020 -Diagnostic Fistulogram with Central Venogram -Angioplasty and Stent of Right Arm AV Graft -Angioplasty and Stent of Right Subclavian Vein Functional, receiving HD per schedule -- ESRD (end stage renal disease) on dialysis Current Visit: Yes Status: Acute Patient gets dialysis on Saturday and Saturdays. Hemodialysis per schedule. Nephrology following --Moderate malnutrition; hypoalbuminemia Current Visit: Yes Status: Acute . Albumin 3.0, nutrition supplements and supportive care Nutrition consult if needed --History of seizure disorder; Current Visit: No Status: chronic Seizure precautions, Ativan as needed Resume antiepileptic medications When accurate home medication list is available Cannot drive until cleared by neurology or PMD --Type II diabetes mellitus Current Visit: No Status: chronic Accu-Chek sliding scale coverage ADA diet Insulin as needed -- DVT prophylaxis Current Visit: No Status: Acute We will place patient on sequential compression device meanwhile. No pharmacologic anticoagulation in view of bleeding from AV fistula --Full code status Current Visit: No Status: Acute Patient is full code. Patient will be discharged to [facility] for rehab for another 10 days- To discuss with immigration case manager about the placement- Subjective Date of service: 08/29/20 Principal diagnosis: Ac. Hypoxemic resp failure; Hemorrhagic shock; TRACEE; Malfunctioning AV graft Interval history: Brief history :74-year-old female patient with significant history of end-stage renal disease on hemodialysis was admitted with malfunctioning of AV fistula With bleeding, evaluated by vascular, patient underwent vascular procedure and resumed hemodialysis, patient also has seizures On antiepileptic medications, follow physical therapy occupational therapy, awaiting return to SNF /SNF placement I called patient's daughter Ms. Kerri Elias at [phone] and discussed in detail on 08/24/2020 Patient's condition, tests and reports consultants recommendation, and treatment plan. Patient had many questions, I answered all of them and encouraged her to call back if she has any new concerns ; Patient is receiving hemodialysis per schedule, stable to be transferred out of [facility] To the floor 08/26/2020; patient had brief seizure episode, patient is on seizure medications, Ativan as needed Will consult neurology if needed I spoke with Ms. Kerri Elias today when she came visiting her mother, patient's condition treatment And discharge planning, answered all her questions, verbalized understanding 08/27/2020 No seizures in the last 24 hours Waiting for SNF placement 08/28/2020 Waiting for placement 08/29/2020 Waiting for placement 08/30/2020 PT evaluation and recommendation, pending placement History Interval history: I have seen and examined the patient at the bedside Patient's chart and medications reviewed Patient complains of generalized weakness and leg pain Unable to do physical therapy Awaiting placement Vital signs noted Hospitalist Physical - Constitutional Vitals: Temp Pulse Resp BP Pulse Ox 98.2 F 72 16 127/51 92 08/30/20 04:27 08/30/20 04:27 08/30/20 04:27 08/30/20 04:27 08/30/20 04:27 General appearance: Present: no acute distress, well-nourished, other (Frail and weak) - EENT Eyes: Present: PERRL, EOM intact - Neck Neck: Present: supple, normal ROM - Respiratory Respiratory effort: normal Respiratory: bilateral: diminished, rhonchi, negative: rales, wheezing - Cardiovascular Rhythm: regular Heart Sounds: Present: S1 & S2 - Extremities Extremities: no ischemia, No edema - Abdominal General gastrointestinal: soft, non-tender, non-distended, normal bowel sounds - Integumentary Integumentary: Present: clear, warm - Psychiatric Psychiatric: appropriate mood/affect, cooperative - Neurologic Neurologic: moves all extremities Results - Labs CBC & Chem 7: 08/28/20 04:48 08/29/20 08:07 Labs: Laboratory Last Values WBC 10.2 K/mm3 (4.5-11.0) 08/28/20 04:48 RBC 3.22 M/mm3 (3.65-5.03) L 08/28/20 04:48 Hgb 9.8 gm/dl (10.1-14.3) L 08/28/20 04:48 Hct 29.2 % (30.3-42.9) L 08/28/20 04:48 MCV 91 fl (79-97) 08/28/20 04:48 MCH 30 pg (28-32) 08/28/20 04:48 MCHC 34 % (30-34) 08/28/20 04:48 RDW 18.0 % (13.2-15.2) H 08/28/20 04:48 Plt Count 251 K/mm3 (140-440) 08/28/20 04:48 Lymph % (Auto) 24.9 % (13.4-35.0) 08/28/20 04:48 [place] % (Auto) 12.7 % (0.0-7.3) H 08/28/20 04:48 Eos % (Auto) 0.3 % (0.0-4.3) 08/28/20 04:48 Baso % (Auto) 0.4 % (0.0-1.8) 08/28/20 04:48 Lymph # (Auto) 2.5 K/mm3 (1.2-5.4) 08/28/20 04:48 [place] # (Auto) 1.3 K/mm3 (0.0-0.8) H 08/28/20 04:48 Eos # (Auto) 0.0 K/mm3 (0.0-0.4) 08/28/20 04:48 Baso # (Auto) 0.0 K/mm3 (0.0-0.1) 08/28/20 04:48 Seg Neutrophils % 61.7 % (40.0-70.0) 08/28/20 04:48 Seg Neutrophils # 6.3 K/mm3 (1.8-7.7) 08/28/20 04:48 PT 18.9 Sec. (12.2-14.9) H 08/25/20 17:30 INR 1.52 (0.87-1.13) H 08/25/20 17:30 APTT 54.8 Sec. (24.2-36.6) H 08/23/20 23:18 Sodium 137 mmol/L (137-145) 08/29/20 08:07 Potassium 3.8 mmol/L (3.6-5.0) 08/29/20 08:07 Chloride 95.1 mmol/L (98-107) L 08/29/20 08:07 Carbon Dioxide 26 mmol/L (22-30) 08/29/20 08:07 Anion Gap 20 mmol/L 08/29/20 08:07 BUN 25 mg/dL (7-17) H 08/29/20 08:07 Creatinine 5.4 mg/dL (0.6-1.2) H 08/29/20 08:07 Estimated GFR 9 ml/min 08/29/20 08:07 BUN/Creatinine Ratio 5 % 08/29/20 08:07 Glucose 114 mg/dL (65-100) H 08/29/20 08:07 POC Glucose 128 mg/dL (70-105) H 08/29/20 21:12 Lactic Acid 1.60 mmol/L (0.7-2.0) 08/24/20 15:43 Calcium 7.2 mg/dL (8.4-10.2) L 08/29/20 08:07 Total Bilirubin 0.30 mg/dL (0.1-1.2) 08/28/20 04:48 AST 20 units/L (5-40) 08/28/20 04:48 ALT 7 units/L (7-56) 08/28/20 04:48 Alkaline Phosphatase 465 units/L (35-129) H 08/28/20 04:48 Total Protein 5.4 g/dL (6.3-8.2) L 08/28/20 04:48 Albumin 2.7 g/dL (3.9-5) L 08/28/20 04:48 Albumin/Globulin Ratio 1.0 % 08/28/20 04:48 Procalcitonin 28.55 ng/mL (<0.15) 08/24/20 15:43 Coronavirus (PCR) Negative (Negative) 08/24/20 Unknown Hepatitis A IgM Ab Non-reactive (NonReactive) 08/25/20 09:35 Hep Bs Antigen Non-reactive (Negative) 08/25/20 09:35 Hep B Core IgM Ab Non-reactive (NonReactive) 08/25/20 09:35 Hepatitis C Antibody Non-reactive (NonReactive) 08/25/20 09:35 Blood Type A POSITIVE 08/24/20 00:55 Antibody Screen Negative 08/24/20 00:55 Crossmatch See Detail 08/24/20 00:55 Mcdaniel/IV: Voiding Method External Female Catheter Active Medications - Current Medications Current Medications: Generic Name Dose Route Start Last Admin Trade Name Freq PRN Reason Stop Dose Admin Cinacalcet 30 mg 08/25/20 10:00 08/29/20 10:17 Cinacalcet 30 Mg Tab PO 30 mg DAILY RITESH Administration Colchicine 0.6 mg 08/24/20 16:27 Colchicine 0.6 Mg Tab PO Q12HR PRN Gout Dextrose 50 ml 08/24/20 01:20 Dextrose 50% In Water (25gm) 50 Ml Syringe IV Q30MIN PRN Hypoglycemia Protocol Diphenhydramine HCl 25 mg 08/27/20 17:25 08/27/20 23:03 Diphenhydramine 50 Mg/Ml Vial IV 25 mg Q6H PRN Administration Itching Ergocalciferol 50,000 unit 08/31/20 10:00 Ergocalciferol (Vit D2) 50,000 Unit Cap PO We RITESH Famotidine 20 mg 08/24/20 22:00 08/29/20 22:16 Famotidine 20 Mg Tab PO 20 mg QHS RITESH Administration Fluticasone Propionate 50 mcg 08/24/20 22:00 08/29/20 22:17 Fluticasone Propionate Nasal [place] 16 Gm NS 50 mcg BID RITESH Administration Hydromorphone HCl 0.25 mg 08/25/20 13:48 08/28/20 17:35 Hydromorphone 1 Mg/1 Ml Inj IV 0.25 mg Q6H PRN Administration Pain , Severe (7-10) Sodium Chloride 100 mls @ 999 mls/hr 08/29/20 12:26 Nacl 0.9% IV FAUSTINA PRN Hypotension Insulin Human Lispro 0 unit 08/24/20 07:30 08/30/20 07:30 Insulin Lispro 100 Unit/Ml SUB-Q Not Given ACHS [facility] Protocol Lamotrigine 100 mg 08/24/20 22:00 08/29/20 22:16 Lamotrigine 100 Mg Tab PO 100 mg Q12HR RITESH Administration Lorazepam 2 mg 08/26/20 16:23 08/28/20 01:54 Lorazepam 2 Mg/Ml Vial IV 2 mg Q2H PRN Administration Seizures Midodrine 10 mg 08/24/20 15:49 08/29/20 18:04 Midodrine 5 Mg Tab PO Not Given TID@0800,1200,1600 [facility] Multivitamins/Minerals 1 each 08/25/20 10:00 08/29/20 10:18 Multivitamins,Ther W-Minerals Tab PO 1 each DAILY RITESH Administration Ondansetron HCl 4 mg 08/24/20 01:20 08/26/20 15:59 Ondansetron 4 Mg/2 Ml Inj IV 4 mg Q8H PRN Administration Nausea And Vomiting Oxycodone/Acetaminophen 1 tab 08/25/20 13:48 08/27/20 13:52 Oxycodone /Acetaminophen 5-325mg Tab PO 1 tab Q6H PRN Administration Pain, Moderate (4-6) Sevelamer Carbonate 800 mg 08/24/20 18:00 08/29/20 18:34 Sevelamer Carbonate 800 Mg Tab PO Not Given AC RITESH Sodium Chloride 10 ml 08/24/20 10:00 08/29/20 22:17 Sodium Chloride 0.9% 10 Ml Flush Syringe IV 10 ml BID RITESH Administration Sodium Chloride 10 ml 08/24/20 01:20 Sodium Chloride 0.9% 10 Ml Flush Syringe IV PRN PRN LINE FLUSH Nutrition/Malnutrition Assess - Dietary Evaluation Nutrition/Malnutrition Findings: Nutrition Notes Start: 08/24/20 12:47 Freq: Status: Active Protocol: Document 08/29/20 12:24 (Rec: 08/29/20 12:26 [id number]) Nutrition Notes Initial or Follow up Brief Note Current Diagnosis CKD (stage V CKD),Diabetes Other Pertinent Diagnosis AV fistula malfunction, Dementia, Sleep apnea, MDD Current Diet Renal Subjective/Other Information FU for intakes. Pt is confused . Unable to assess intakes. Nutrition Intervention Follow-Up By: 08/30/20 Additional Comments FU for intakes and ONS tolerance
[2020-08-30] MEDS: SEVELAMER CARBONATE 800 MG TAB PO SCH ×3 (08:58→16:59)
[2020-08-30] MEDS: FLUTICASONE PROPIONATE NASAL SPRAY 16 GM NS SCH ×3 (08:58→21:58)
[2020-08-30] MEDS: MIDODRINE 5 MG TAB PO SCH ×3 (08:58→16:59)
[2020-08-30] MEDS: lamoTRIgine 100 MG TAB PO SCH ×3 (08:58→21:57)
[2020-08-30] MEDS: CINACALCET 30 MG TAB PO SCH (08:59)
[2020-08-30] MEDS: oxyCODONE /ACETAMINOPHEN 5-325MG TAB PO PRN (09:00)
--- NOTE | 2020-08-30 12:26 | Progress Note ---
Assessment and Plan 72-year-old -[place] female Obese Obese. No acute respiratory distress. O2 saturationwith known history of end-stage renal disease on dialysis, diabetes mellitus, pulmonary embolism, seizure disorder, GERD, dementia, major depressive disorder, gout, sleep apnea, lumbar radiculopathy, presenting to the emergency room today with complaint of bleeding from the right upper arm AV fistula. Patient is currently a resident of a snf facility where she is having rehabilitation. She is currently on apixaban by 5 mg daily and was said to have been bleeding from her fistula site earlier today. Upon arrival of EMS she was said to be hypotensive with a blood pressure of 90/40 mmHg. Pressure and dressing was applied to the bleeding site however bleeding persisted. Patient normally resides with daughter was was said to have had a broken right humerus and right distal tibia during transportation for hemodialysis. She is currently undergoing rehabilitation. She normally gets her dialysis at [facility]. Upon arrival in the emergency room, patient bleeding fistula was sutured by the ER physician. Vascular surgeon Dr. Gutierrez was also consulted. Recommendation is to keep patient n.p.o. overnight for possible intervention in the a.m. Hemoglobin was about 9.1 and hematocrit of 28.9. Patient was transfused with O- negative PRBC. Patient sleeping on O2 2 litres. O2 saturation 96%. No acute respiratory distress. Chest xray 08/25/20 reported No definite acute disease. - Patient Problems (1) ESRD (end stage renal disease) on dialysis Current Visit: Yes Status: Acute Plan to address problem: Management as per nephrology. (2) Diabetes mellitus Current Visit: No Status: Acute Plan to address problem: Management as per primary care. (3) Sialolithiasis of submandibular gland Current Visit: No Status: Acute Plan to address problem: Consult ENT. (4) Tongue swelling Current Visit: No Status: Acute Plan to address problem: Management as per primary care. Subjective Date of service: 08/30/20 Principal diagnosis: Ac. Hypoxemic resp failure; Hemorrhagic shock; TRACEE; Malfunctioning AV graft Interval history: 72-year-old -[place] female Obese Obese. No acute respiratory distress. O2 saturation with known history of end-stage renal disease on dialysis, diabetes mellitus, pulmonary embolism, seizure disorder, GERD, dementia, major depressive disorder, gout, sleep apnea, lumbar radiculopathy, presenting to the emergency room today with complaint of bleeding from the right upper arm AV fistula. Patient is currently a resident of a snf facility where she is having rehabilitation. She is currently on apixaban by 5 mg daily and was said to have been bleeding from her fistula site earlier today. Upon arrival of EMS she was said to be hypotensive with a blood pressure of 90/40 mmHg. Pressure and dressing was applied to the bleeding site however bleeding persisted. Patient normally resides with daughter was was said to have had a broken right humerus and right distal tibia during transportation for hemodialysis. She is currently undergoing rehabilitation. She normally gets her dialysis at [facility]. Upon arrival in the emergency room, patient bleeding fistula was sutured by the ER physician. Vascular surgeon Dr. Gutierrez was also consulted. Recommendation is to keep patient n.p.o. overnight for possible intervention in the a.m. Hemoglobin was about 9.1 and hematocrit of 28.9. Patient was transfused with O- negative PRBC. Patient sleeping on O2 2 litres. O2 saturation 96%. No acute respiratory distress. Chest xray 08/25/20 reported No definite acute disease. Objective Vital Signs - 12hr 08/30/20 08/30/20 08/30/20 04:27 09:12 10:50 Temperature 98.2 F 97.6 F Pulse Rate 72 86 Respiratory 16 20 Rate Blood Pressure 127/51 Blood Pressure 146/52 [Left] O2 Sat by Pulse 92 92 96 Oximetry Constitutional: no acute distress, asleep Eyes: non-icteric ENT: oropharynx moist Neck: supple, no lymphadenopathy, no JVD Effort: normal Ascultation: Bilateral: rhonchi Percussion: Bilateral: not dull Cardiovascular: regular rate and rhythm Gastrointestinal: normoactive bowel sounds, soft, non-tender, non-distended (protuberant) Integumentary: rash Extremities: no cyanosis, no edema, pulses normal, no ischemia or petechiae Neurologic: non-focal exam (grossly), pupils equal and round, CN II-XII normal, other (pedal contractures) Psychiatric: mood appropriate, affect normal, other (poor insight and judgment) CBC and BMP: 08/28/20 04:48 08/29/20 08:07 ABG, PT/INR, D-dimer: PT/INR, D-dimer PT 18.9 Sec. (12.2-14.9) H 08/25/20 17:30 INR 1.52 (0.87-1.13) H 08/25/20 17:30 Abnormal lab findings: Abnormal Labs 08/23/20 08/23/20 08/23/20 23:18 23:18 23:18 WBC RBC 3.29 L Hgb 9.1 L Hct 28.9 L RDW 18.8 H [place] % (Auto) 8.5 H [place] # (Auto) 0.9 H Seg Neutrophils % 71.7 H PT 22.8 H INR 1.97 H APTT 54.8 H Sodium 135 L Potassium Chloride 91.2 L Carbon Dioxide BUN Creatinine 3.4 H Glucose 156 H POC Glucose Calcium 7.9 L ALT < 5 L Alkaline Phosphatase 589 H Total Protein 5.3 L Albumin 3.0 L Crossmatch 08/24/20 08/24/20 08/24/20 00:55 07:29 07:47 WBC 11.7 H RBC Hgb Hct RDW 17.0 H [place] % (Auto) [place] # (Auto) Seg Neutrophils % PT INR APTT Sodium Potassium Chloride Carbon Dioxide BUN Creatinine Glucose POC Glucose 153 H Calcium ALT Alkaline Phosphatase Total Protein Albumin Crossmatch See Detail 08/24/20 08/24/20 08/24/20 07:47 14:15 17:30 WBC RBC Hgb Hct RDW [place] % (Auto) [place] # (Auto) Seg Neutrophils % PT INR APTT Sodium 133 L Potassium Chloride 96.6 L Carbon Dioxide 18 L BUN Creatinine 3.3 H Glucose 156 H POC Glucose 107 H 109 H Calcium 7.6 L ALT Alkaline Phosphatase Total Protein Albumin Crossmatch 08/24/20 08/25/20 08/25/20 21:13 07:52 09:35 WBC RBC Hgb Hct RDW [place] % (Auto) [place] # (Auto) Seg Neutrophils % PT INR APTT Sodium 136 L Potassium Chloride Carbon Dioxide BUN 22 H Creatinine 4.4 H Glucose 136 H POC Glucose 148 H 110 H Calcium 7.8 L ALT Alkaline Phosphatase Total Protein Albumin Crossmatch 08/25/20 08/25/20 08/25/20 11:55 17:29 17:30 WBC RBC 3.49 L Hgb Hct RDW 17.5 H [place] % (Auto) 11.0 H [place] # (Auto) 1.0 H Seg Neutrophils % 75.1 H PT INR APTT Sodium Potassium Chloride Carbon Dioxide BUN Creatinine Glucose POC Glucose 154 H 155 H Calcium ALT Alkaline Phosphatase Total Protein Albumin Crossmatch 08/25/20 08/26/20 08/26/20 17:30 11:29 15:02 WBC RBC Hgb Hct RDW [place] % (Auto) [place] # (Auto) Seg Neutrophils % PT 18.9 H INR 1.52 H APTT Sodium Potassium Chloride Carbon Dioxide BUN Creatinine Glucose POC Glucose 139 H 161 H Calcium ALT Alkaline Phosphatase Total Protein Albumin Crossmatch 08/26/20 08/27/20 08/27/20 21:28 08:34 11:54 WBC RBC Hgb Hct RDW [place] % (Auto) [place] # (Auto) Seg Neutrophils % PT INR APTT Sodium Potassium Chloride Carbon Dioxide BUN Creatinine Glucose POC Glucose 188 H 126 H 132 H Calcium ALT Alkaline Phosphatase Total Protein Albumin Crossmatch 08/27/20 08/27/20 08/28/20 17:31 20:51 04:48 WBC RBC 3.22 L Hgb 9.8 L Hct 29.2 L RDW 18.0 H [place] % (Auto) 12.7 H [place] # (Auto) 1.3 H Seg Neutrophils % PT INR APTT Sodium Potassium Chloride Carbon Dioxide BUN Creatinine Glucose POC Glucose 160 H 145 H Calcium ALT Alkaline Phosphatase Total Protein Albumin Crossmatch 08/28/20 08/28/20 08/28/20 04:48 11:24 15:32 WBC RBC Hgb Hct RDW [place] % (Auto) [place] # (Auto) Seg Neutrophils % PT INR APTT Sodium Potassium 3.5 L Chloride Carbon Dioxide BUN 21 H Creatinine 4.6 H Glucose 120 H POC Glucose 143 H 150 H Calcium 7.0 L ALT Alkaline Phosphatase 465 H Total Protein 5.4 L Albumin 2.7 L Crossmatch 08/28/20 08/29/20 08/29/20 21:18 08:07 12:39 WBC RBC Hgb Hct RDW [place] % (Auto) [place] # (Auto) Seg Neutrophils % PT INR APTT Sodium Potassium Chloride 95.1 L Carbon Dioxide BUN 25 H Creatinine 5.4 H Glucose 114 H POC Glucose 150 H 171 H Calcium 7.2 L ALT Alkaline Phosphatase Total Protein Albumin Crossmatch 08/29/20 08/30/20 08/30/20 21:12 07:35 11:07 WBC RBC Hgb Hct RDW [place] % (Auto) [place] # (Auto) Seg Neutrophils % PT INR APTT Sodium Potassium Chloride Carbon Dioxide BUN Creatinine Glucose POC Glucose 128 H 120 H 212 H Calcium ALT Alkaline Phosphatase Total Protein Albumin Crossmatch Allied health notes reviewed: nursing
[2020-08-30] MEDS ORDERED: LIP THERAPY VASELINE TP PRN (13:34)
[2020-08-30] MEDS: ONDANSETRON 4 MG/2 ML INJ IV PRN (16:52)
[2020-08-30] MEDS: MULTIVITAMINS,THER W-MINERALS TAB PO SCH (16:58)
[2020-08-30] MEDS: FAMOTIDINE 20 MG TAB PO SCH (21:57)
[2020-08-31] MEDS: INSULIN LISPRO 100 UNIT/ML SUB-Q SCH ×4 (07:30→22:41)
[2020-08-31] MEDS: MIDODRINE 5 MG TAB PO SCH ×3 (08:35→15:55)
[2020-08-31] MEDS: SEVELAMER CARBONATE 800 MG TAB PO SCH ×3 (08:35→15:56)
[2020-08-31] MEDS ORDERED: ERGOCALCIFEROL (VIT D2) 50,000 UNIT CAP PO SCH (10:00)
--- NOTE | 2020-08-31 10:08 | Progress Note ---
Assessment and Plan Assessment and plan: --Hemorrhage from bleeding fistula/hypotension Current Visit: No Status: Acute Continue midodrine 10 mg 3 times a day, -- Complication of AV fistula[bleeding] Current Visit: No Status: Acute/resolved Patient had sutures placed on the bleeding fistula. Vascular surgeon evaluated the patient s/p vascular procedure 08/24/2020 -Diagnostic Fistulogram with Central Venogram -Angioplasty and Stent of Right Arm AV Graft -Angioplasty and Stent of Right Subclavian Vein Functional, receiving HD per schedule -- ESRD (end stage renal disease) on dialysis Current Visit: Yes Status: Acute Patient gets dialysis on Saturday and Saturdays. Hemodialysis per schedule. Nephrology following --Moderate malnutrition; hypoalbuminemia Current Visit: Yes Status: Acute . Albumin 3.0, nutrition supplements and supportive care Nutrition consult if needed --History of seizure disorder; Current Visit: No Status: chronic Seizure precautions, Ativan as needed Resume antiepileptic medications When accurate home medication list is available Cannot drive until cleared by neurology or PMD --Type II diabetes mellitus Current Visit: No Status: chronic Accu-Chek sliding scale coverage ADA diet Insulin as needed -- DVT prophylaxis Current Visit: No Status: Acute We will place patient on sequential compression device meanwhile. No pharmacologic anticoagulation in view of bleeding from AV fistula --Full code status Current Visit: No Status: Acute Patient is full code. Patient will be discharged to [facility] for rehab for another 10 days- To discuss with watch case polisher about the placement- Subjective Date of service: 08/29/20 Principal diagnosis: Ac. Hypoxemic resp failure; Hemorrhagic shock; TRACEE; Malfunctioning AV graft Interval history: Brief history :74-year-old female patient with significant history of end-stage renal disease on hemodialysis was admitted with malfunctioning of AV fistula With bleeding, evaluated by vascular, patient underwent vascular procedure and resumed hemodialysis, patient also has seizures On antiepileptic medications, follow physical therapy occupational therapy, awaiting return to SNF /SNF placement I called patient's daughter Ms. Kerri Elias at [phone] and discussed in detail on 08/24/2020 Patient's condition, tests and reports consultants recommendation, and treatment plan. Patient had many questions, I answered all of them and encouraged her to call back if she has any new concerns ; Patient is receiving hemodialysis per schedule, stable to be transferred out of [facility] To the floor 08/26/2020; patient had brief seizure episode, patient is on seizure medications, Ativan as needed Will consult neurology if needed I spoke with Ms. Kerri Elias today when she came visiting her mother, patient's condition treatment And discharge planning, answered all her questions, verbalized understanding 08/27/2020 No seizures in the last 24 hours Waiting for SNF placement 08/28/2020 Waiting for placement 08/29/2020 Waiting for placement 08/30/2020 PT evaluation and recommendation, pending placement 08/31/2020; pending placement Follow PT evaluation and recommendations DC planning per case management History Interval history: I have seen and examined the patient at the bedside Patient's chart and medications reviewed Patient feels slightly better, new complaints Vital signs noted Hospitalist Physical - Constitutional Vitals: Temp Pulse Resp BP Pulse Ox 98.2 F 70 16 127/59 95 08/31/20 05:24 08/31/20 05:24 08/31/20 05:24 08/31/20 05:24 08/31/20 09:31 General appearance: Present: no acute distress, well-nourished, other (Frail and weak) - EENT Eyes: Present: PERRL, EOM intact - Neck Neck: Present: supple, normal ROM - Respiratory Respiratory effort: normal Respiratory: bilateral: diminished, negative: rales, rhonchi, wheezing - Cardiovascular Rhythm: regular Heart Sounds: Present: S1 & S2 - Extremities Extremities: no ischemia, No edema - Abdominal General gastrointestinal: soft, non-tender, non-distended, normal bowel sounds - Integumentary Integumentary: Present: clear, warm - Psychiatric Psychiatric: other (Confused at times) - Neurologic Neurologic: moves all extremities Results - Labs CBC & Chem 7: 08/28/20 04:48 08/29/20 08:07 Labs: Laboratory Last Values WBC 10.2 K/mm3 (4.5-11.0) 08/28/20 04:48 RBC 3.22 M/mm3 (3.65-5.03) L 08/28/20 04:48 Hgb 9.8 gm/dl (10.1-14.3) L 08/28/20 04:48 Hct 29.2 % (30.3-42.9) L 08/28/20 04:48 MCV 91 fl (79-97) 08/28/20 04:48 MCH 30 pg (28-32) 08/28/20 04:48 MCHC 34 % (30-34) 08/28/20 04:48 RDW 18.0 % (13.2-15.2) H 08/28/20 04:48 Plt Count 251 K/mm3 (140-440) 08/28/20 04:48 Lymph % (Auto) 24.9 % (13.4-35.0) 08/28/20 04:48 [place] % (Auto) 12.7 % (0.0-7.3) H 08/28/20 04:48 Eos % (Auto) 0.3 % (0.0-4.3) 08/28/20 04:48 Baso % (Auto) 0.4 % (0.0-1.8) 08/28/20 04:48 Lymph # (Auto) 2.5 K/mm3 (1.2-5.4) 08/28/20 04:48 [place] # (Auto) 1.3 K/mm3 (0.0-0.8) H 08/28/20 04:48 Eos # (Auto) 0.0 K/mm3 (0.0-0.4) 08/28/20 04:48 Baso # (Auto) 0.0 K/mm3 (0.0-0.1) 08/28/20 04:48 Seg Neutrophils % 61.7 % (40.0-70.0) 08/28/20 04:48 Seg Neutrophils # 6.3 K/mm3 (1.8-7.7) 08/28/20 04:48 PT 18.9 Sec. (12.2-14.9) H 08/25/20 17:30 INR 1.52 (0.87-1.13) H 08/25/20 17:30 APTT 54.8 Sec. (24.2-36.6) H 08/23/20 23:18 Sodium 137 mmol/L (137-145) 08/29/20 08:07 Potassium 3.8 mmol/L (3.6-5.0) 08/29/20 08:07 Chloride 95.1 mmol/L (98-107) L 08/29/20 08:07 Carbon Dioxide 26 mmol/L (22-30) 08/29/20 08:07 Anion Gap 20 mmol/L 08/29/20 08:07 BUN 25 mg/dL (7-17) H 08/29/20 08:07 Creatinine 5.4 mg/dL (0.6-1.2) H 08/29/20 08:07 Estimated GFR 9 ml/min 08/29/20 08:07 BUN/Creatinine Ratio 5 % 08/29/20 08:07 Glucose 114 mg/dL (65-100) H 08/29/20 08:07 POC Glucose 118 mg/dL (70-105) H 08/31/20 07:57 Lactic Acid 1.60 mmol/L (0.7-2.0) 08/24/20 15:43 Calcium 7.2 mg/dL (8.4-10.2) L 08/29/20 08:07 Total Bilirubin 0.30 mg/dL (0.1-1.2) 08/28/20 04:48 AST 20 units/L (5-40) 08/28/20 04:48 ALT 7 units/L (7-56) 08/28/20 04:48 Alkaline Phosphatase 465 units/L (35-129) H 08/28/20 04:48 Total Protein 5.4 g/dL (6.3-8.2) L 08/28/20 04:48 Albumin 2.7 g/dL (3.9-5) L 08/28/20 04:48 Albumin/Globulin Ratio 1.0 % 08/28/20 04:48 Procalcitonin 28.55 ng/mL (<0.15) 08/24/20 15:43 Coronavirus (PCR) Negative (Negative) 08/24/20 Unknown Hepatitis A IgM Ab Non-reactive (NonReactive) 08/25/20 09:35 Hep Bs Antigen Non-reactive (Negative) 08/25/20 09:35 Hep B Core IgM Ab Non-reactive (NonReactive) 08/25/20 09:35 Hepatitis C Antibody Non-reactive (NonReactive) 08/25/20 09:35 Blood Type A POSITIVE 08/24/20 00:55 Antibody Screen Negative 08/24/20 00:55 Crossmatch See Detail 08/24/20 00:55 Mcdaniel/IV: Voiding Method External Female Catheter Active Medications - Current Medications Current Medications: Generic Name Dose Route Start Last Admin Trade Name Freq PRN Reason Stop Dose Admin Cinacalcet 30 mg 08/25/20 10:00 08/30/20 08:59 Cinacalcet 30 Mg Tab PO 30 mg DAILY RITESH Administration Colchicine 0.6 mg 08/24/20 16:27 Colchicine 0.6 Mg Tab PO Q12HR PRN Gout Dextrose 50 ml 08/24/20 01:20 Dextrose 50% In Water (25gm) 50 Ml Syringe IV Q30MIN PRN Hypoglycemia Protocol Diphenhydramine HCl 25 mg 08/27/20 17:25 08/27/20 23:03 Diphenhydramine 50 Mg/Ml Vial IV 25 mg Q6H PRN Administration Itching Ergocalciferol 50,000 unit 08/31/20 10:00 Ergocalciferol (Vit D2) 50,000 Unit Cap PO We RITESH Famotidine 20 mg 08/24/20 22:00 08/30/20 21:57 Famotidine 20 Mg Tab PO 20 mg QHS RITESH Administration Fluticasone Propionate 50 mcg 08/24/20 22:00 08/30/20 21:58 Fluticasone Propionate Nasal [place] 16 Gm NS 50 mcg BID RITESH Administration Hydromorphone HCl 0.25 mg 08/25/20 13:48 08/28/20 17:35 Hydromorphone 1 Mg/1 Ml Inj IV 0.25 mg Q6H PRN Administration Pain , Severe (7-10) Hydrophilic Ointment 1 applic 08/30/20 13:34 Lip Therapy Vaseline TP DIRECT PRN Dry Lips Sodium Chloride 100 mls @ 999 mls/hr 08/29/20 12:26 Nacl 0.9% IV FAUSTINA PRN Hypotension Insulin Human Lispro 0 unit 08/24/20 07:30 08/31/20 07:30 Insulin Lispro 100 Unit/Ml SUB-Q Not Given ACHS [facility] Protocol Lamotrigine 100 mg 08/24/20 22:00 08/30/20 21:57 Lamotrigine 100 Mg Tab PO 100 mg Q12HR RITESH Administration Lorazepam 2 mg 08/26/20 16:23 08/28/20 01:54 Lorazepam 2 Mg/Ml Vial IV 2 mg Q2H PRN Administration Seizures Midodrine 10 mg 08/24/20 15:49 08/31/20 08:35 Midodrine 5 Mg Tab PO 10 mg TID@0800,1200,1600 RITESH Administration Multivitamins/Minerals 1 each 08/25/20 10:00 08/30/20 16:58 Multivitamins,Ther W-Minerals Tab PO Not Given DAILY RITESH Ondansetron HCl 4 mg 08/24/20 01:20 08/30/20 16:52 Ondansetron 4 Mg/2 Ml Inj IV 4 mg Q8H PRN Administration Nausea And Vomiting Oxycodone/Acetaminophen 1 tab 08/25/20 13:48 08/30/20 09:00 Oxycodone /Acetaminophen 5-325mg Tab PO 1 tab Q6H PRN Administration Pain, Moderate (4-6) Sevelamer Carbonate 800 mg 08/24/20 18:00 08/31/20 08:35 Sevelamer Carbonate 800 Mg Tab PO 800 mg AC RITESH Administration Sodium Chloride 10 ml 08/24/20 10:00 08/30/20 22:04 Sodium Chloride 0.9% 10 Ml Flush Syringe IV 10 ml BID RIETSH Administration Sodium Chloride 10 ml 08/24/20 01:20 08/30/20 21:57 Sodium Chloride 0.9% 10 Ml Flush Syringe IV 10 ml PRN PRN Administration LINE FLUSH Nutrition/Malnutrition Assess - Dietary Evaluation Nutrition/Malnutrition Findings: Nutrition Notes Start: 08/24/20 12:47 Freq: Status: Active Protocol: Document 08/30/20 12:24 (Rec: 08/30/20 12:29 [id number]) Nutrition Notes Initial or Follow up Reassessment Current Diagnosis CKD (stage V CKD),Diabetes Other Pertinent Diagnosis AV fistula malfunction, Dementia, Sleep apnea, MDD Current Diet Renal, pureed Labs/Tests POC [id number] Pertinent Medications Reviewed Height 5 ft Weight 73.6 kg [place] Body Weight (kg) 45.45 BMI 31.6 Weight change and time frame Wt change noted, follow for trends Weight Status Overweight Subjective/Other Information FU for intakes. RN reports pt does not tolerate regular diet well and food falling out of mouth. RN ordered pureed diet to trial pt. Pt drinking 100% of ONS. Percent of energy/protein needs met: 61%/47% Burn Absent Trauma Absent Current % PO Poor (25-49%) Minimum of two criteria No Energy Intake (non-severe) <75% Estimated Energy Requirement >7 days #2 Nutrition Diagnosis Increased nutrient needs ( specify in comment below) Diagnosis Progress(for reassessment Continues documentation) #1 Nutrition Diagnosis Inadequate energy intake Diagnosis Progress(for reassessment Continues documentation) Is patient on ventilator? No Is Patient Ambulatory and/or Out of Bed No REE-(Gabriels-St. Jeor-confined to bed) 1395.216 Calculation [facility] Additional Notes Pro needs >1.2g/kg: >81g/day Fluid needs 1-1.5L/day Nutrition Intervention Change Diet Order: Continue Add Supplement/Snack (indicate name/kcal Nepro BID /protein ) Provides kCal: 850 Provides Protein (gm) 38 Goal #1 Meet at least 75% of protein and energy needs via PO and ONS intakes Follow-Up By: 09/01/20 Additional Comments FU for PO tolerance, BG and intakes
--- NOTE | 2020-08-31 10:17 | Progress Note ---
Assessment and Plan 1. ESRD: Patient is on maintenance hemodialysis three times a week, TTS schedule. Meds dosage based on GFR. Hemodialysis: 08/25, 08/29. 2. FEN: Monitor lytes. 3. Anemia, POA: Monitor H/H. Epogen with HD as needed. 4. Malfunctioning AVG: Presented with bleeding AVG. S/p angioplasty. 5. Seizure disorder. 6. Type II DM: Accu-Chek sliding scale coverage ADA diet. 7. Hypotension: Midodrine. Subjective: Pt was seen and examined at the bedside. Examination: General appearance: well-developed, appears stated age, not in distress HEENT: ATNC, [place], hearing intact Neck: neck supple, trachea midline Respiratory: Clear to Auscultation Heart: regular, S1S2, no murmur Gastrointestinal: Soft, normoactive bowel sounds, obese Integumentary: no rash, warm and dry Neurologic: alert, confused Ext: b/l LE splint noted Hemodialysis access: R arm AVG Subjective Date of service: 08/31/20 Principal diagnosis: Ac. Hypoxemic resp failure; Hemorrhagic shock; TRACEE; Malfunctioning AV graft Objective - Vital Signs Vital signs: Vital Signs - 12hr 08/31/20 08/31/20 05:24 09:31 Temperature 98.2 F Pulse Rate 70 Respiratory 16 Rate Blood Pressure 127/59 O2 Sat by Pulse 100 95 Oximetry - Lab 08/28/20 04:48 08/29/20 08:07 Most recent lab results Calcium 7.2 mg/dL (8.4-10.2) L 08/29/20 08:07 Medications & Allergies - Medications Allergies/Adverse Reactions: Allergies sulfacetamide [From Sulfamide] Allergy (Verified 03/06/17 00:22) Anaphylaxis Home Medications: Home Medications Medication Instructions Recorded Confirmed Last Taken Type Apixaban [Eliquis] 5 mg PO BID 03/05/17 08/24/20 Unknown History Colchicine [Colcrys] 0.6 mg PO Q12HR PRN 03/05/17 08/24/20 Unknown History Fluticasone [Flonase] 1 spray NS BID 03/05/17 08/24/20 Unknown History Pantoprazole [Protonix TAB] 20 mg PO QDAY 03/05/17 08/24/20 Unknown History sevelamer HCL [Renagel] 800 mg PO TIDWM 03/05/17 08/24/20 Unknown History Acetaminophen 650 mg PO Q6HR PRN 08/24/20 08/24/20 Unknown History Cholecalciferol (Vitamin D3) 50,000 unit PO 1XW 08/24/20 08/24/20 Unknown History Cinacalcet HCl [Sensipar] 30 mg PO DAILY 08/24/20 08/24/20 Unknown History DUONEB *Not for PRN Use* 1 neb INHALATION Q4H PRN 08/24/20 08/26/20 Unknown History Insulin Glargine,Hum.rec.anlog 10 units SUB-Q QHS 08/24/20 08/24/20 Unknown History [Semglee] Insulin Lispro [Admelog] See Protocol SQ ACHS 08/24/20 08/24/20 Unknown History Lidocaine [Lidoderm] 1 patch TD DAILY 08/24/20 08/26/20 Unknown History Multivitamin Tab W-MINERAL 1 each PO DAILY 08/24/20 08/24/20 Unknown History [Multiple Vitamin/Mineral (Theragran M)] Ramelteon [Rozerem] 8 mg PO QHS 08/24/20 08/24/20 Unknown History lamoTRIgine [LaMICtal] 100 mg PO Q12HR 08/24/20 08/24/20 Unknown History Active Medications: Generic Name Dose Route Start Last Admin Trade Name Freq PRN Reason Stop Dose Admin Cinacalcet 30 mg 08/25/20 10:00 08/30/20 08:59 Cinacalcet 30 Mg Tab PO 30 mg DAILY RITESH Administration Colchicine 0.6 mg 08/24/20 16:27 Colchicine 0.6 Mg Tab PO Q12HR PRN Gout Dextrose 50 ml 08/24/20 01:20 Dextrose 50% In Water (25gm) 50 Ml Syringe IV Q30MIN PRN Hypoglycemia Protocol Diphenhydramine HCl 25 mg 08/27/20 17:25 08/27/20 23:03 Diphenhydramine 50 Mg/Ml Vial IV 25 mg Q6H PRN Administration Itching Ergocalciferol 50,000 unit 08/31/20 10:00 Ergocalciferol (Vit D2) 50,000 Unit Cap PO We RITESH Famotidine 20 mg 08/24/20 22:00 08/30/20 21:57 Famotidine 20 Mg Tab PO 20 mg QHS RITESH Administration Fluticasone Propionate 50 mcg 08/24/20 22:00 08/30/20 21:58 Fluticasone Propionate Nasal [place] 16 Gm NS 50 mcg BID RITESH Administration Hydromorphone HCl 0.25 mg 08/25/20 13:48 08/28/20 17:35 Hydromorphone 1 Mg/1 Ml Inj IV 0.25 mg Q6H PRN Administration Pain , Severe (7-10) Hydrophilic Ointment 1 applic 08/30/20 13:34 Lip Therapy Vaseline TP DIRECT PRN Dry Lips Sodium Chloride 100 mls @ 999 mls/hr 08/29/20 12:26 Nacl 0.9% IV FAUSTINA PRN Hypotension Insulin Human Lispro 0 unit 08/24/20 07:30 08/31/20 07:30 Insulin Lispro 100 Unit/Ml SUB-Q Not Given ACHS [facility] Protocol Lamotrigine 100 mg 08/24/20 22:00 08/30/20 21:57 Lamotrigine 100 Mg Tab PO 100 mg Q12HR RITESH Administration Lorazepam 2 mg 08/26/20 16:23 08/28/20 01:54 Lorazepam 2 Mg/Ml Vial IV 2 mg Q2H PRN Administration Seizures Midodrine 10 mg 08/24/20 15:49 08/31/20 08:35 Midodrine 5 Mg Tab PO 10 mg TID@0800,1200,1600 [facility] Administration Multivitamins/Minerals 1 each 08/25/20 10:00 08/30/20 16:58 Multivitamins,Ther W-Minerals Tab PO Not Given DAILY [facility] Ondansetron HCl 4 mg 08/24/20 01:20 08/30/20 16:52 Ondansetron 4 Mg/2 Ml Inj IV 4 mg Q8H PRN Administration Nausea And Vomiting Oxycodone/Acetaminophen 1 tab 08/25/20 13:48 08/30/20 09:00 Oxycodone /Acetaminophen 5-325mg Tab PO 1 tab Q6H PRN Administration Pain, Moderate (4-6) Sevelamer Carbonate 800 mg 08/24/20 18:00 08/31/20 08:35 Sevelamer Carbonate 800 Mg Tab PO 800 mg AC RITESH Administration Sodium Chloride 10 ml 08/24/20 10:00 08/30/20 22:04 Sodium Chloride 0.9% 10 Ml Flush Syringe IV 10 ml BID RITESH Administration Sodium Chloride 10 ml 08/24/20 01:20 08/30/20 21:57 Sodium Chloride 0.9% 10 Ml Flush Syringe IV 10 ml PRN PRN Administration LINE FLUSH
[2020-08-31] MEDS: FLUTICASONE PROPIONATE NASAL SPRAY 16 GM NS SCH ×2 (11:42→22:38)
[2020-08-31] MEDS: lamoTRIgine 100 MG TAB PO SCH ×2 (11:42→22:39)
[2020-08-31] MEDS: MULTIVITAMINS,THER W-MINERALS TAB PO SCH (11:42)
[2020-08-31] MEDS: CINACALCET 30 MG TAB PO SCH (11:45)
--- NOTE | 2020-08-31 14:21 | Progress Note ---
Assessment and Plan 72-year-old -[place] female Obese Obese. No acute respiratory distress. O2 saturationwith known history of end-stage renal disease on dialysis, diabetes mellitus, pulmonary embolism, seizure disorder, GERD, dementia, major depressive disorder, gout, sleep apnea, lumbar radiculopathy, presenting to the emergency room today with complaint of bleeding from the right upper arm AV fistula. Patient is currently a resident of a residential facility where she is having rehabilitation. She is currently on apixaban by 5 mg daily and was said to have been bleeding from her fistula site earlier today. Upon arrival of EMS she was said to be hypotensive with a blood pressure of 90/40 mmHg. Pressure and dressing was applied to the bleeding site however bleeding persisted. Patient normally resides with daughter was was said to have had a broken right humerus and right distal tibia during transportation for hemodialysis. She is currently undergoing rehabilitation. She normally gets her dialysis at [facility]. Upon arrival in the emergency room, patient bleeding fistula was sutured by the ER physician. Vascular surgeon Dr. Gutierrez was also consulted. Recommendation is to keep patient n.p.o. overnight for possible intervention in the a.m. Hemoglobin was about 9.1 and hematocrit of 28.9. Patient was transfused with O- negative PRBC. Patient sleeping on room air at this time. Not using her O2. O2 saturation recorded 100%. No acute respiratory distress. But patient confused. Patient running low grade temp at times. No leukocytosis. Chest xray 08/25/20 reported No definite acute disease. - Patient Problems (1) ESRD (end stage renal disease) on dialysis Current Visit: Yes Status: Acute Plan to address problem: Management as per nephrology. (2) Diabetes mellitus Current Visit: No Status: Acute Plan to address problem: Management as per primary care. (3) Sialolithiasis of submandibular gland Current Visit: No Status: Acute Plan to address problem: Consult ENT. (4) Tongue swelling Current Visit: No Status: Acute Plan to address problem: Management as per primary care. Subjective Date of service: 08/31/20 Principal diagnosis: Ac. Hypoxemic resp failure; Hemorrhagic shock; TRACEE; Malfunctioning AV graft Interval history: 72-year-old -[place] female Obese Obese. No acute respiratory distress. O2 saturationwith known history of end-stage renal disease on dialysis, diabetes mellitus, pulmonary embolism, seizure disorder, GERD, dementia, major depressive disorder, gout, sleep apnea, lumbar radiculopathy, presenting to the emergency room today with complaint of bleeding from the right upper arm AV fistula. Patient is currently a resident of a residential facility where she is hav ing rehabilitation. She is currently on apixaban by 5 mg daily and was said to have been bleeding from her fistula site earlier today. Upon arrival of EMS she was said to be hypotensive with a blood pressure of 90/40 mmHg. Pressure and dressing was applied to the bleeding site however bleeding persisted. Patient normally resides with daughter was was said to have had a broken right humerus and right distal tibia during transportation for hemodialysis. She is currently undergoing rehabilitation. She normally gets her dialysis at [facility]. Upon arrival in the emergency room, patient bleeding fistula was sutured by the ER physician. Vascular surgeon Dr. Gutierrez was also consulted. Recommendation is to keep patient n.p.o. overnight for possible intervention in the a.m. Hemoglobin was about 9.1 and hematocrit of 28.9. Patient was transfused with O- negative PRBC. Patient sleeping on room air at this time. Not using her O2. O2 saturation recorded 100%. No acute respiratory distress. But patient confused. Patient running low grade temp at times. No leukocytosis. Chest xray 08/25/20 reported No definite acute disease. Objective Vital Signs - 12hr 08/31/20 08/31/20 08/31/20 05:24 09:31 10:00 Temperature 98.2 F Pulse Rate 70 Respiratory 16 Rate Blood Pressure 127/59 O2 Sat by Pulse 100 95 99 Oximetry Constitutional: no acute distress, asleep, other (elderly obese female without increased respiratory effort at rest) Eyes: non-icteric ENT: oropharynx moist Neck: supple, no lymphadenopathy, no JVD Effort: normal Ascultation: Bilateral: rhonchi Percussion: Bilateral: not dull Cardiovascular: regular rate and rhythm Gastrointestinal: normoactive bowel sounds, soft, non-tender, non-distended (protuberant) Integumentary: rash Extremities: no cyanosis, no edema, pulses normal, no ischemia or petechiae Neurologic: non-focal exam (grossly), pupils equal and round, CN II-XII normal, other (pedal contractures) Psychiatric: mood appropriate, affect normal, other (poor insight and judgment) CBC and BMP: 08/28/20 04:48 08/29/20 08:07 ABG, PT/INR, D-dimer: PT/INR, D-dimer PT 18.9 Sec. (12.2-14.9) H 08/25/20 17:30 INR 1.52 (0.87-1.13) H 08/25/20 17:30 Abnormal lab findings: Abnormal Labs 08/23/20 08/23/20 08/23/20 23:18 23:18 23:18 WBC RBC 3.29 L Hgb 9.1 L Hct 28.9 L RDW 18.8 H [place] % (Auto) 8.5 H [place] # (Auto) 0.9 H Seg Neutrophils % 71.7 H PT 22.8 H INR 1.97 H APTT 54.8 H Sodium 135 L Potassium Chloride 91.2 L Carbon Dioxide BUN Creatinine 3.4 H Glucose 156 H POC Glucose Calcium 7.9 L ALT < 5 L Alkaline Phosphatase 589 H Total Protein 5.3 L Albumin 3.0 L Crossmatch 08/24/20 08/24/20 08/24/20 00:55 07:29 07:47 WBC 11.7 H RBC Hgb Hct RDW 17.0 H [place] % (Auto) [place] # (Auto) Seg Neutrophils % PT INR APTT Sodium Potassium Chloride Carbon Dioxide BUN Creatinine Glucose POC Glucose 153 H Calcium ALT Alkaline Phosphatase Total Protein Albumin Crossmatch See Detail 08/24/20 08/24/20 08/24/20 07:47 14:15 17:30 WBC RBC Hgb Hct RDW [place] % (Auto) [place] # (Auto) Seg Neutrophils % PT INR APTT Sodium 133 L Potassium Chloride 96.6 L Carbon Dioxide 18 L BUN Creatinine 3.3 H Glucose 156 H POC Glucose 107 H 109 H Calcium 7.6 L ALT Alkaline Phosphatase Total Protein Albumin Crossmatch 08/24/20 08/25/20 08/25/20 21:13 07:52 09:35 WBC RBC Hgb Hct RDW [place] % (Auto) [place] # (Auto) Seg Neutrophils % PT INR APTT Sodium 136 L Potassium Chloride Carbon Dioxide BUN 22 H Creatinine 4.4 H Glucose 136 H POC Glucose 148 H 110 H Calcium 7.8 L ALT Alkaline Phosphatase Total Protein Albumin Crossmatch 08/25/20 08/25/20 08/25/20 11:55 17:29 17:30 WBC RBC 3.49 L Hgb Hct RDW 17.5 H [place] % (Auto) 11.0 H [place] # (Auto) 1.0 H Seg Neutrophils % 75.1 H PT INR APTT Sodium Potassium Chloride Carbon Dioxide BUN Creatinine Glucose POC Glucose 154 H 155 H Calcium ALT Alkaline Phosphatase Total Protein Albumin Crossmatch 08/25/20 08/26/20 08/26/20 17:30 11:29 15:02 WBC RBC Hgb Hct RDW [place] % (Auto) [place] # (Auto) Seg Neutrophils % PT 18.9 H INR 1.52 H APTT Sodium Potassium Chloride Carbon Dioxide BUN Creatinine Glucose POC Glucose 139 H 161 H Calcium ALT Alkaline Phosphatase Total Protein Albumin Crossmatch 08/26/20 08/27/20 08/27/20 21:28 08:34 11:54 WBC RBC Hgb Hct RDW [place] % (Auto) [place] # (Auto) Seg Neutrophils % PT INR APTT Sodium Potassium Chloride Carbon Dioxide BUN Creatinine Glucose POC Glucose 188 H 126 H 132 H Calcium ALT Alkaline Phosphatase Total Protein Albumin Crossmatch 08/27/20 08/27/20 08/28/20 17:31 20:51 04:48 WBC RBC 3.22 L Hgb 9.8 L Hct 29.2 L RDW 18.0 H [place] % (Auto) 12.7 H [place] # (Auto) 1.3 H Seg Neutrophils % PT INR APTT Sodium Potassium Chloride Carbon Dioxide BUN Creatinine Glucose POC Glucose 160 H 145 H Calcium ALT Alkaline Phosphatase Total Protein Albumin Crossmatch 08/28/20 08/28/20 08/28/20 04:48 11:24 15:32 WBC RBC Hgb Hct RDW [place] % (Auto) [place] # (Auto) Seg Neutrophils % PT INR APTT Sodium Potassium 3.5 L Chloride Carbon Dioxide BUN 21 H Creatinine 4.6 H Glucose 120 H POC Glucose 143 H 150 H Calcium 7.0 L ALT Alkaline Phosphatase 465 H Total Protein 5.4 L Albumin 2.7 L Crossmatch 08/28/20 08/29/20 08/29/20 21:18 08:07 12:39 WBC RBC Hgb Hct RDW [place] % (Auto) [place] # (Auto) Seg Neutrophils % PT INR APTT Sodium Potassium Chloride 95.1 L Carbon Dioxide BUN 25 H Creatinine 5.4 H Glucose 114 H POC Glucose 150 H 171 H Calcium 7.2 L ALT Alkaline Phosphatase Total Protein Albumin Crossmatch 08/29/20 08/30/20 08/30/20 21:12 07:35 11:07 WBC RBC Hgb Hct RDW [place] % (Auto) [place] # (Auto) Seg Neutrophils % PT INR APTT Sodium Potassium Chloride Carbon Dioxide BUN Creatinine Glucose POC Glucose 128 H 120 H 212 H Calcium ALT Alkaline Phosphatase Total Protein Albumin Crossmatch 08/30/20 08/30/20 08/31/20 16:39 21:06 07:57 WBC RBC Hgb Hct RDW [place] % (Auto) [place] # (Auto) Seg Neutrophils % PT INR APTT Sodium Potassium Chloride Carbon Dioxide BUN Creatinine Glucose POC Glucose 157 H 143 H 118 H Calcium ALT Alkaline Phosphatase Total Protein Albumin Crossmatch 08/31/20 12:28 WBC RBC Hgb Hct RDW [place] % (Auto) [place] # (Auto) Seg Neutrophils % PT INR APTT Sodium Potassium Chloride Carbon Dioxide BUN Creatinine Glucose POC Glucose 251 H Calcium ALT Alkaline Phosphatase Total Protein Albumin Crossmatch Allied health notes reviewed: nursing
[2020-08-31] MEDS: oxyCODONE /ACETAMINOPHEN 5-325MG TAB PO PRN (15:55)
[2020-08-31] MEDS: FAMOTIDINE 20 MG TAB PO SCH (22:39)
[2020-08-31] MEDS ORDERED: EPOETIN ALFA-EPBX 10,000 UNIT/1 ML VIAL SUB-Q PRN (23:23)
[2020-08-31] MEDS ORDERED: HEPARIN 10,000 UNITS/10 ML VIAL IV PRN (23:23)
[2020-09-01] MEDS: INSULIN LISPRO 100 UNIT/ML SUB-Q SCH ×3 (07:44→18:34)
[2020-09-01] MEDS: MIDODRINE 5 MG TAB PO SCH ×3 (08:17→18:33)
[2020-09-01] MEDS: lamoTRIgine 100 MG TAB PO SCH ×2 (09:45→21:42)
[2020-09-01] MEDS: MULTIVITAMINS,THER W-MINERALS TAB PO SCH (09:45)
[2020-09-01] MEDS: CINACALCET 30 MG TAB PO SCH (09:45)
[2020-09-01] MEDS: SEVELAMER CARBONATE 800 MG TAB PO SCH ×3 (09:45→18:35)
[2020-09-01] MEDS: FLUTICASONE PROPIONATE NASAL SPRAY 16 GM NS SCH ×2 (09:46→21:55)
--- NOTE | 2020-09-01 10:07 | Progress Note ---
Assessment and Plan 1. ESRD: Patient is on maintenance hemodialysis three times a week, TTS schedule. Meds dosage based on GFR. Hemodialysis: 08/25, 08/29. HD today. 2. FEN: Monitor lytes. 3. Anemia, POA: Monitor H/H. Epogen with HD as needed. 4. Malfunctioning AVG: Presented with bleeding AVG. S/p angioplasty. 5. Seizure disorder. 6. Type II DM: Accu-Chek sliding scale coverage ADA diet. 7. Hypotension: Midodrine. Subjective: Pt was seen and examined at the bedside. Examination: General appearance: well-developed, appears stated age, not in distress HEENT: [place], [place], hearing intact Neck: neck supple, trachea midline Respiratory: Clear to Auscultation Heart: regular, S1S2, no murmur Gastrointestinal: Soft, normoactive bowel sounds, obese Integumentary: no rash, warm and dry Neurologic: alert, confused Ext: b/l LE splint noted Hemodialysis access: R arm AVG Subjective Date of service: 09/01/20 Principal diagnosis: Ac. Hypoxemic resp failure; Hemorrhagic shock; TRACEE; Malfunctioning AV graft Objective - Vital Signs Vital signs: Vital Signs - 12hr 08/31/20 09/01/20 09/01/20 22:52 00:20 05:53 Temperature 98.6 F 97.8 F Pulse Rate 88 77 Respiratory 20 20 Rate Blood Pressure 148/46 145/48 O2 Sat by Pulse 100 95 99 Oximetry - Lab 08/28/20 04:48 08/29/20 08:07 Most recent lab results Calcium 7.2 mg/dL (8.4-10.2) L 08/29/20 08:07 Medications & Allergies - Medications Allergies/Adverse Reactions: Allergies sulfacetamide [From Sulfamide] Allergy (Verified 03/06/17 00:22) Anaphylaxis Home Medications: Home Medications Medication Instructions Recorded Confirmed Last Taken Type Apixaban [Eliquis] 5 mg PO BID 03/05/17 08/24/20 Unknown History Colchicine [Colcrys] 0.6 mg PO Q12HR PRN 03/05/17 08/24/20 Unknown History Fluticasone [Flonase] 1 spray NS BID 03/05/17 08/24/20 Unknown History Pantoprazole [Protonix TAB] 20 mg PO QDAY 03/05/17 08/24/20 Unknown History sevelamer HCL [Renagel] 800 mg PO TIDWM 03/05/17 08/24/20 Unknown History Acetaminophen 650 mg PO Q6HR PRN 08/24/20 08/24/20 Unknown History Cholecalciferol (Vitamin D3) 50,000 unit PO 1XW 08/24/20 08/24/20 Unknown History Cinacalcet HCl [Sensipar] 30 mg PO DAILY 08/24/20 08/24/20 Unknown History DUONEB *Not for PRN Use* 1 neb INHALATION Q4H PRN 08/24/20 08/26/20 Unknown History Insulin Glargine,Hum.rec.anlog 10 units SUB-Q QHS 08/24/20 08/24/20 Unknown History [Semglee] Insulin Lispro [Admelog] See Protocol SQ ACHS 08/24/20 08/24/20 Unknown History Lidocaine [Lidoderm] 1 patch TD DAILY 08/24/20 08/26/20 Unknown History Multivitamin Tab W-MINERAL 1 each PO DAILY 08/24/20 08/24/20 Unknown History [Multiple Vitamin/Mineral (Theragran M)] Ramelteon [Rozerem] 8 mg PO QHS 08/24/20 08/24/20 Unknown History lamoTRIgine [LaMICtal] 100 mg PO Q12HR 08/24/20 08/24/20 Unknown History Active Medications: Generic Name Dose Route Start Last Admin Trade Name Freq PRN Reason Stop Dose Admin Cinacalcet 30 mg 08/25/20 10:00 09/01/20 09:45 Cinacalcet 30 Mg Tab PO 30 mg DAILY RITESH Administration Colchicine 0.6 mg 08/24/20 16:27 Colchicine 0.6 Mg Tab PO Q12HR PRN Gout Dextrose 50 ml 08/24/20 01:20 09/01/20 08:01 Dextrose 50% In Water (25gm) 50 Ml Syringe IV 15 ml Q30MIN PRN Administration Hypoglycemia Protocol Diphenhydramine HCl 25 mg 08/27/20 17:25 08/27/20 23:03 Diphenhydramine 50 Mg/Ml Vial IV 25 mg Q6H PRN Administration Itching Ergocalciferol 50,000 unit 08/31/20 10:00 08/31/20 11:55 Ergocalciferol (Vit D2) 50,000 Unit Cap PO 50,000 unit We RITESH Administration Famotidine 20 mg 08/24/20 22:00 08/31/20 22:39 Famotidine 20 Mg Tab PO 20 mg QHS RITESH Administration Fluticasone Propionate 50 mcg 08/24/20 22:00 09/01/20 09:46 Fluticasone Propionate Nasal [place] 16 Gm NS 50 mcg BID RITESH Administration Heparin Sodium (Porcine) 2,000 unit 08/31/20 23:23 Heparin 10,000 Units/10 Ml Vial IV FAUSTINA PRN hemodialysis Hydromorphone HCl 0.25 mg 08/25/20 13:48 08/28/20 17:35 Hydromorphone 1 Mg/1 Ml Inj IV 0.25 mg Q6H PRN Administration Pain , Severe (7-10) Hydrophilic Ointment 1 applic 08/30/20 13:34 Lip Therapy Vaseline TP DIRECT PRN Dry Lips Sodium Chloride 100 mls @ 999 mls/hr 08/29/20 12:26 Nacl 0.9% IV FAUSTINA PRN Hypotension Insulin Human Lispro 0 unit 08/24/20 07:30 09/01/20 07:44 Insulin Lispro 100 Unit/Ml SUB-Q Not Given ACHS [facility] Protocol Lamotrigine 100 mg 08/24/20 22:00 09/01/20 09:45 Lamotrigine 100 Mg Tab PO 100 mg Q12HR RITESH Administration Lorazepam 2 mg 08/26/20 16:23 08/28/20 01:54 Lorazepam 2 Mg/Ml Vial IV 2 mg Q2H PRN Administration Seizures Midodrine 10 mg 08/24/20 15:49 09/01/20 08:17 Midodrine 5 Mg Tab PO Not Given TID@0800,1200,1600 [facility] Multivitamins/Minerals 1 each 08/25/20 10:00 09/01/20 09:45 Multivitamins,Ther W-Minerals Tab PO 1 each DAILY RITESH Administration Ondansetron HCl 4 mg 08/24/20 01:20 08/30/20 16:52 Ondansetron 4 Mg/2 Ml Inj IV 4 mg Q8H PRN Administration Nausea And Vomiting Oxycodone/Acetaminophen 1 tab 08/25/20 13:48 08/31/20 15:55 Oxycodone /Acetaminophen 5-325mg Tab PO 1 tab Q6H PRN Administration Pain, Moderate (4-6) Sevelamer Carbonate 800 mg 08/24/20 18:00 09/01/20 09:45 Sevelamer Carbonate 800 Mg Tab PO 800 mg AC RITESH Administration Sodium Chloride 10 ml 08/24/20 10:00 09/01/20 09:46 Sodium Chloride 0.9% 10 Ml Flush Syringe IV 10 ml BID RITESH Administration Sodium Chloride 10 ml 08/24/20 01:20 08/30/20 21:57 Sodium Chloride 0.9% 10 Ml Flush Syringe IV 10 ml PRN PRN Administration LINE FLUSH
--- NOTE | 2020-09-01 14:11 | Progress Note ---
Assessment and Plan Acute Hypoxemic respiratory failure Hemorrhagic shock ESRD on dialysis Malfunctioning right upper extremity arteriovenous graft DM II H/O pulmonary embolism Seizure disorder Dementia Obesity Anemia that is normocytic Coagulopathy Gout History of sleep apnea - neurology evlautaion ongoing - continue Lamictal as AED - continue BIPAP scheduled qhs re: TERENCE - continue care as below otherwise; - continue HD/UF for toxin and volume clearance - continue Midodrine for BP support - continue accuchecks with glycemic control per SSI for target blood glucose of < 180 mg/dL; avoid hypoglycemia - continue to wean supplemental oxygen for target O2 sat's > 90% acutely - Aspiration precautions - prn bronchodilators with pulmonary hygiene per RT - avoid nephrotoxins, renally dose all medications - continue to avoid benzodiazepine's, reduce the possibility of delirium - AB's per ID rec's - prn analgesia per pain score - Maintenance of sleep-wake cycle, avoid delirium - G.I. & VTE prophylaxis - PT/OT/ROM exercises - mobility protocols for pressure ulcer prophylaxis - Monitor hemodynamics closely - continue other care per attending / other consultants - discharge planning ongoing concurrently COVID SPECIFIC INTERVENTIONS - COVID-19 PCR negative .... Re-evaluate in am & prn Subjective Date of service: 09/01/20 Principal diagnosis: Ac. Hypoxemic resp failure; Hemorrhagic shock; TRACEE; Malfunc tioning AV graft Interval history: Patient is seen today for: Acute Hypoxemic respiratory failure; Hemorrhagic shock; TRACEE on dialysis; Malfunctioning right upper extremity arteriovenous graft; DM II; H/O pulmonary embolism; TERENCE; Seizure disorder Seen and examined at bedside; 24hour events reviewed; nursing and respiratory care staff consulted; no adverse overnight events reported to me; resting in bed; Objective Vital Signs - 12hr 09/01/20 05:53 Temperature 97.8 F Pulse Rate 77 Respiratory 20 Rate Blood Pressure 145/48 O2 Sat by Pulse 99 Oximetry Constitutional: no acute distress, asleep, other (elderly obese female without increased respiratory effort at rest) Eyes: non-icteric ENT: oropharynx moist Neck: supple, no lymphadenopathy, no JVD Effort: normal Ascultation: Bilateral: rhonchi Percussion: Bilateral: not dull Cardiovascular: regular rate and rhythm Gastrointestinal: normoactive bowel sounds, soft, non-tender, non-distended (protuberant) Integumentary: rash Extremities: no cyanosis, no edema, pulses normal, no ischemia or petechiae Neurologic: non-focal exam (grossly), pupils equal and round, CN II-XII normal, other (pedal contractures) Psychiatric: mood appropriate, affect normal, other (poor insight and judgment) CBC and BMP: 08/28/20 04:48 08/29/20 08:07 ABG, PT/INR, D-dimer: PT/INR, D-dimer PT 18.9 Sec. (12.2-14.9) H 08/25/20 17:30 INR 1.52 (0.87-1.13) H 08/25/20 17:30 Abnormal lab findings: Abnormal Labs 08/23/20 08/23/20 08/23/20 23:18 23:18 23:18 WBC RBC 3.29 L Hgb 9.1 L Hct 28.9 L RDW 18.8 H [place] % (Auto) 8.5 H [place] # (Auto) 0.9 H Seg Neutrophils % 71.7 H PT 22.8 H INR 1.97 H APTT 54.8 H Sodium 135 L Potassium Chloride 91.2 L Carbon Dioxide BUN Creatinine 3.4 H Glucose 156 H POC Glucose Calcium 7.9 L ALT < 5 L Alkaline Phosphatase 589 H Total Protein 5.3 L Albumin 3.0 L Crossmatch 08/24/20 08/24/20 08/24/20 00:55 07:29 07:47 WBC 11.7 H RBC Hgb Hct RDW 17.0 H [place] % (Auto) [place] # (Auto) Seg Neutrophils % PT INR APTT Sodium Potassium Chloride Carbon Dioxide BUN Creatinine Glucose POC Glucose 153 H Calcium ALT Alkaline Phosphatase Total Protein Albumin Crossmatch See Detail 08/24/20 08/24/20 08/24/20 07:47 14:15 17:30 WBC RBC Hgb Hct RDW [place] % (Auto) [place] # (Auto) Seg Neutrophils % PT INR APTT Sodium 133 L Potassium Chloride 96.6 L Carbon Dioxide 18 L BUN Creatinine 3.3 H Glucose 156 H POC Glucose 107 H 109 H Calcium 7.6 L ALT Alkaline Phosphatase Total Protein Albumin Crossmatch 08/24/20 08/25/20 08/25/20 21:13 07:52 09:35 WBC RBC Hgb Hct RDW [place] % (Auto) [place] # (Auto) Seg Neutrophils % PT INR APTT Sodium 136 L Potassium Chloride Carbon Dioxide BUN 22 H Creatinine 4.4 H Glucose 136 H POC Glucose 148 H 110 H Calcium 7.8 L ALT Alkaline Phosphatase Total Protein Albumin Crossmatch 08/25/20 08/25/20 08/25/20 11:55 17:29 17:30 WBC RBC 3.49 L Hgb Hct RDW 17.5 H [place] % (Auto) 11.0 H [place] # (Auto) 1.0 H Seg Neutrophils % 75.1 H PT INR APTT Sodium Potassium Chloride Carbon Dioxide BUN Creatinine Glucose POC Glucose 154 H 155 H Calcium ALT Alkaline Phosphatase Total Protein Albumin Crossmatch 08/25/20 08/26/20 08/26/20 17:30 11:29 15:02 WBC RBC Hgb Hct RDW [place] % (Auto) [place] # (Auto) Seg Neutrophils % PT 18.9 H INR 1.52 H APTT Sodium Potassium Chloride Carbon Dioxide BUN Creatinine Glucose POC Glucose 139 H 161 H Calcium ALT Alkaline Phosphatase Total Protein Albumin Crossmatch 08/26/20 08/27/20 08/27/20 21:28 08:34 11:54 WBC RBC Hgb Hct RDW [place] % (Auto) [place] # (Auto) Seg Neutrophils % PT INR APTT Sodium Potassium Chloride Carbon Dioxide BUN Creatinine Glucose POC Glucose 188 H 126 H 132 H Calcium ALT Alkaline Phosphatase Total Protein Albumin Crossmatch 08/27/20 08/27/20 08/28/20 17:31 20:51 04:48 WBC RBC 3.22 L Hgb 9.8 L Hct 29.2 L RDW 18.0 H [place] % (Auto) 12.7 H [place] # (Auto) 1.3 H Seg Neutrophils % PT INR APTT Sodium Potassium Chloride Carbon Dioxide BUN Creatinine Glucose POC Glucose 160 H 145 H Calcium ALT Alkaline Phosphatase Total Protein Albumin Crossmatch 08/28/20 08/28/20 08/28/20 04:48 11:24 15:32 WBC RBC Hgb Hct RDW [place] % (Auto) [place] # (Auto) Seg Neutrophils % PT INR APTT Sodium Potassium 3.5 L Chloride Carbon Dioxide BUN 21 H Creatinine 4.6 H Glucose 120 H POC Glucose 143 H 150 H Calcium 7.0 L ALT Alkaline Phosphatase 465 H Total Protein 5.4 L Albumin 2.7 L Crossmatch 08/28/20 08/29/20 08/29/20 21:18 08:07 12:39 WBC RBC Hgb Hct RDW [place] % (Auto) [place] # (Auto) Seg Neutrophils % PT INR APTT Sodium Potassium Chloride 95.1 L Carbon Dioxide BUN 25 H Creatinine 5.4 H Glucose 114 H POC Glucose 150 H 171 H Calcium 7.2 L ALT Alkaline Phosphatase Total Protein Albumin Crossmatch 08/29/20 08/30/20 08/30/20 21:12 07:35 11:07 WBC RBC Hgb Hct RDW [place] % (Auto) [place] # (Auto) Seg Neutrophils % PT INR APTT Sodium Potassium Chloride Carbon Dioxide BUN Creatinine Glucose POC Glucose 128 H 120 H 212 H Calcium ALT Alkaline Phosphatase Total Protein Albumin Crossmatch 08/30/20 08/30/20 08/31/20 16:39 21:06 07:57 WBC RBC Hgb Hct RDW [place] % (Auto) [place] # (Auto) Seg Neutrophils % PT INR APTT Sodium Potassium Chloride Carbon Dioxide BUN Creatinine Glucose POC Glucose 157 H 143 H 118 H Calcium ALT Alkaline Phosphatase Total Protein Albumin Crossmatch 08/31/20 08/31/20 08/31/20 12:28 17:21 20:50 WBC RBC Hgb Hct RDW [place] % (Auto) [place] # (Auto) Seg Neutrophils % PT INR APTT Sodium Potassium Chloride Carbon Dioxide BUN Creatinine Glucose POC Glucose 251 H 146 H 115 H Calcium ALT Alkaline Phosphatase Total Protein Albumin Crossmatch 09/01/20 07:41 WBC RBC Hgb Hct RDW [place] % (Auto) [place] # (Auto) Seg Neutrophils % PT INR APTT Sodium Potassium Chloride Carbon Dioxide BUN Creatinine Glucose POC Glucose 65 L Calcium ALT Alkaline Phosphatase Total Protein Albumin Crossmatch Allied health notes reviewed: nursing
--- NOTE | 2020-09-01 18:34 | Progress Note ---
Assessment and Plan Assessment and plan: -- Complication of AV fistula[bleeding] Current Visit: No Status: Acute/resolved Patient had sutures placed on the bleeding fistula. Vascular surgeon evaluated the patient s/p vascular procedure 08/24/2020 -Diagnostic Fistulogram with Central Venogram -Angioplasty and Stent of Right Arm AV Graft -Angioplasty and Stent of Right Subclavian Vein Functional, receiving HD per schedule --Hemorrhage from bleeding fistula/hypotension Current Visit: No Status: Acute Blood pressures are reasonable continue midodrine -- ESRD (end stage renal disease) on dialysis Current Visit: Yes Status: Acute Patient gets dialysis on Saturday and Saturdays. Hemodialysis per schedule. Nephrology following --Moderate malnutrition; hypoalbuminemia Current Visit: Yes Status: Acute . Albumin 3.0, nutrition supplements and supportive care Nutrition consult if needed --History of seizure disorder; Current Visit: No Status: chronic Seizure precautions, Ativan as needed Resume antiepileptic medications When accurate home medication list is available Cannot drive until cleared by neurology or PMD --Type II diabetes mellitus Current Visit: No Status: chronic Accu-Chek sliding scale coverage ADA diet Insulin as needed -- DVT prophylaxis Current Visit: No Status: Acute We will place patient on sequential compression device meanwhile. No pharmacologic anticoagulation in view of bleeding from AV fistula --Full code status Current Visit: No Status: Acute Patient is full code. DC planning per case management Subjective Date of service: 08/29/20 Principal diagnosis: Ac. Hypoxemic resp failure; Hemorrhagic shock; TRACEE; Malfunctioning AV graft Interval history: Brief history :74-year-old female patient with significant history of end-stage renal disease on hemodialysis was admitted with malfunctioning of AV fistula With bleeding, evaluated by vascular, patient underwent vascular procedure and resumed hemodialysis, patient also has seizures On antiepileptic medications, follow physical therapy occupational therapy, awaiting return to SNF /SNF placement I called patient's daughter Ms. Kerri Elias at [phone] and discussed in detail on 08/24/2020 Patient's condition, tests and reports consultants recommendation, and treatment plan. Patient had many questions, I answered all of them and encouraged her to call back if she has any new concerns ; Patient is receiving hemodialysis per schedule, stable to be transferred out of [facility] To the floor 08/26/2020; patient had brief seizure episode, patient is on seizure medications, Ativan as needed Will consult neurology if needed I spoke with Ms. Kerri Elias today when she came visiting her mother, patient's condition treatment And discharge planning, answered all her questions, verbalized understanding 08/27/2020 No seizures in the last 24 hours Waiting for SNF placement 08/28/2020 Waiting for placement 08/29/2020 Waiting for placement 08/30/2020 PT evaluation and recommendation, pending placement 08/31/2020; pending placement Follow PT evaluation and recommendations DC planning per case management 09/01/2020; awaiting placement COVID-19 - 08/24/2020 History Interval history: I have seen and examined the patient at the bedside Patient's chart and medications reviewed Patient complains of generalized weakness Awaiting placement to SNF Case management assisting with discharge planning Vital signs noted Hospitalist Physical - Constitutional Vitals: Temp Pulse Resp BP Pulse Ox 98.2 F 65 18 137/62 99 09/01/20 16:10 09/01/20 16:10 09/01/20 16:10 09/01/20 16:10 09/01/20 05:53 General appearance: Present: no acute distress, well-nourished, other (Frail and weak) - EENT Eyes: Present: PERRL, EOM intact - Neck Neck: Present: supple, normal ROM - Respiratory Respiratory effort: normal Respiratory: bilateral: diminished, negative: rales, rhonchi, wheezing - Cardiovascular Rhythm: regular Heart Sounds: Present: S1 & S2 - Extremities Extremities: no ischemia, No edema - Abdominal General gastrointestinal: soft, non-tender, non-distended, normal bowel sounds - Integumentary Integumentary: Present: clear, warm - Psychiatric Psychiatric: appropriate mood/affect, cooperative - Neurologic Neurologic: CNII-XII intact, moves all extremities Results - Labs CBC & Chem 7: 08/28/20 04:48 08/29/20 08:07 Labs: Laboratory Last Values WBC 10.2 K/mm3 (4.5-11.0) 08/28/20 04:48 RBC 3.22 M/mm3 (3.65-5.03) L 08/28/20 04:48 Hgb 9.8 gm/dl (10.1-14.3) L 08/28/20 04:48 Hct 29.2 % (30.3-42.9) L 08/28/20 04:48 MCV 91 fl (79-97) 08/28/20 04:48 MCH 30 pg (28-32) 08/28/20 04:48 MCHC 34 % (30-34) 08/28/20 04:48 RDW 18.0 % (13.2-15.2) H 08/28/20 04:48 Plt Count 251 K/mm3 (140-440) 08/28/20 04:48 Lymph % (Auto) 24.9 % (13.4-35.0) 08/28/20 04:48 [place] % (Auto) 12.7 % (0.0-7.3) H 08/28/20 04:48 Eos % (Auto) 0.3 % (0.0-4.3) 08/28/20 04:48 Baso % (Auto) 0.4 % (0.0-1.8) 08/28/20 04:48 Lymph # (Auto) 2.5 K/mm3 (1.2-5.4) 08/28/20 04:48 [place] # (Auto) 1.3 K/mm3 (0.0-0.8) H 08/28/20 04:48 Eos # (Auto) 0.0 K/mm3 (0.0-0.4) 08/28/20 04:48 Baso # (Auto) 0.0 K/mm3 (0.0-0.1) 08/28/20 04:48 Seg Neutrophils % 61.7 % (40.0-70.0) 08/28/20 04:48 Seg Neutrophils # 6.3 K/mm3 (1.8-7.7) 08/28/20 04:48 PT 18.9 Sec. (12.2-14.9) H 08/25/20 17:30 INR 1.52 (0.87-1.13) H 08/25/20 17:30 APTT 54.8 Sec. (24.2-36.6) H 08/23/20 23:18 Sodium 137 mmol/L (137-145) 08/29/20 08:07 Potassium 3.8 mmol/L (3.6-5.0) 08/29/20 08:07 Chloride 95.1 mmol/L (98-107) L 08/29/20 08:07 Carbon Dioxide 26 mmol/L (22-30) 08/29/20 08:07 Anion Gap 20 mmol/L 08/29/20 08:07 BUN 25 mg/dL (7-17) H 08/29/20 08:07 Creatinine 5.4 mg/dL (0.6-1.2) H 08/29/20 08:07 Estimated GFR 9 ml/min 08/29/20 08:07 BUN/Creatinine Ratio 5 % 08/29/20 08:07 Glucose 114 mg/dL (65-100) H 08/29/20 08:07 POC Glucose 130 mg/dL (70-105) H 09/01/20 16:31 Lactic Acid 1.60 mmol/L (0.7-2.0) 08/24/20 15:43 Calcium 7.2 mg/dL (8.4-10.2) L 08/29/20 08:07 Total Bilirubin 0.30 mg/dL (0.1-1.2) 08/28/20 04:48 AST 20 units/L (5-40) 08/28/20 04:48 ALT 7 units/L (7-56) 08/28/20 04:48 Alkaline Phosphatase 465 units/L (35-129) H 08/28/20 04:48 Total Protein 5.4 g/dL (6.3-8.2) L 08/28/20 04:48 Albumin 2.7 g/dL (3.9-5) L 08/28/20 04:48 Albumin/Globulin Ratio 1.0 % 08/28/20 04:48 Procalcitonin 28.55 ng/mL (<0.15) 08/24/20 15:43 Coronavirus (PCR) Negative (Negative) 08/24/20 Unknown Hepatitis A IgM Ab Non-reactive (NonReactive) 08/25/20 09:35 Hep Bs Antigen Non-reactive (Negative) 08/25/20 09:35 Hep B Core IgM Ab Non-reactive (NonReactive) 08/25/20 09:35 Hepatitis C Antibody Non-reactive (NonReactive) 08/25/20 09:35 Blood Type A POSITIVE 08/24/20 00:55 Antibody Screen Negative 08/24/20 00:55 Crossmatch See Detail 08/24/20 00:55 Mcdaniel/IV: Voiding Method External Female Catheter Active Medications - Current Medications Current Medications: Generic Name Dose Route Start Last Admin Trade Name Freq PRN Reason Stop Dose Admin Cinacalcet 30 mg 08/25/20 10:00 09/01/20 09:45 Cinacalcet 30 Mg Tab PO 30 mg DAILY RITESH Administration Colchicine 0.6 mg 08/24/20 16:27 Colchicine 0.6 Mg Tab PO Q12HR PRN Gout Dextrose 50 ml 08/24/20 01:20 09/01/20 08:01 Dextrose 50% In Water (25gm) 50 Ml Syringe IV 15 ml Q30MIN PRN Administration Hypoglycemia Protocol Diphenhydramine HCl 25 mg 08/27/20 17:25 08/27/20 23:03 Diphenhydramine 50 Mg/Ml Vial IV 25 mg Q6H PRN Administration Itching Ergocalciferol 50,000 unit 08/31/20 10:00 08/31/20 11:55 Ergocalciferol (Vit D2) 50,000 Unit Cap PO 50,000 unit We RITESH Administration Famotidine 20 mg 08/24/20 22:00 08/31/20 22:39 Famotidine 20 Mg Tab PO 20 mg QHS RITESH Administration Fluticasone Propionate 50 mcg 08/24/20 22:00 09/01/20 09:46 Fluticasone Propionate Nasal [place] 16 Gm NS 50 mcg BID RITESH Administration Heparin Sodium (Porcine) 2,000 unit 08/31/20 23:23 Heparin 10,000 Units/10 Ml Vial IV FAUSTINA PRN hemodialysis Hydromorphone HCl 0.25 mg 08/25/20 13:48 08/28/20 17:35 Hydromorphone 1 Mg/1 Ml Inj IV 0.25 mg Q6H PRN Administration Pain , Severe (7-10) Hydrophilic Ointment 1 applic 08/30/20 13:34 Lip Therapy Vaseline TP DIRECT PRN Dry Lips Sodium Chloride 100 mls @ 999 mls/hr 08/29/20 12:26 Nacl 0.9% IV FAUSTINA PRN Hypotension Insulin Human Lispro 0 unit 08/24/20 07:30 09/01/20 13:29 Insulin Lispro 100 Unit/Ml SUB-Q Not Given ACHS [facility] Protocol Lamotrigine 100 mg 08/24/20 22:00 09/01/20 09:45 Lamotrigine 100 Mg Tab PO 100 mg Q12HR RITESH Administration Lorazepam 2 mg 08/26/20 16:23 08/28/20 01:54 Lorazepam 2 Mg/Ml Vial IV 2 mg Q2H PRN Administration Seizures Midodrine 10 mg 08/24/20 15:49 09/01/20 13:30 Midodrine 5 Mg Tab PO Not Given TID@0800,1200,1600 RITESH Multivitamins/Minerals 1 each 08/25/20 10:00 09/01/20 09:45 Multivitamins,Ther W-Minerals Tab PO 1 each DAILY RITESH Administration Ondansetron HCl 4 mg 08/24/20 01:20 08/30/20 16:52 Ondansetron 4 Mg/2 Ml Inj IV 4 mg Q8H PRN Administration Nausea And Vomiting Oxycodone/Acetaminophen 1 tab 08/25/20 13:48 08/31/20 15:55 Oxycodone /Acetaminophen 5-325mg Tab PO 1 tab Q6H PRN Administration Pain, Moderate (4-6) Sevelamer Carbonate 800 mg 08/24/20 18:00 09/01/20 13:30 Sevelamer Carbonate 800 Mg Tab PO Not Given AC RITESH Sodium Chloride 10 ml 08/24/20 10:00 09/01/20 09:46 Sodium Chloride 0.9% 10 Ml Flush Syringe IV 10 ml BID RITESH Administration Sodium Chloride 10 ml 08/24/20 01:20 08/30/20 21:57 Sodium Chloride 0.9% 10 Ml Flush Syringe IV 10 ml PRN PRN Administration LINE FLUSH Nutrition/Malnutrition Assess - Dietary Evaluation Nutrition/Malnutrition Findings: Nutrition Notes Start: 08/24/20 12:47 Freq: Status: Active Protocol: Document 09/01/20 16:12 RALPH (Rec: 09/01/20 16:14 RALPH [id number]) Nutrition Notes Initial or Follow up Brief Note Subjective/Other Information 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 Pt awaiting placement. No PO intakes documented since last assessment. Nutrition Intervention Follow-Up By: 09/04/20 Additional Comments F/U: intakes, reassessment
[2020-09-01] MEDS: FAMOTIDINE 20 MG TAB PO SCH (21:42)
[2020-09-02] MEDS: INSULIN LISPRO 100 UNIT/ML SUB-Q SCH ×4 (00:08→18:06)
--- NOTE | 2020-09-02 08:20 | Progress Note ---
Assessment and Plan Assessment and plan: -- Complication of AV fistula[bleeding] Current Visit: No Status: Acute/resolved Patient had sutures placed on the bleeding fistula. Vascular surgeon evaluated the patient s/p vascular procedure 08/24/2020 -Diagnostic Fistulogram with Central Venogram -Angioplasty and Stent of Right Arm AV Graft -Angioplasty and Stent of Right Subclavian Vein Functional, receiving HD per schedule --Hemorrhage from bleeding fistula/hypotension Current Visit: No Status: Acute Blood pressures are reasonable continue midodrine -- ESRD (end stage renal disease) on dialysis Current Visit: Yes Status: Acute Patient gets dialysis on Saturday and Saturdays. Hemodialysis per schedule. Nephrology following --Moderate malnutrition; hypoalbuminemia Current Visit: Yes Status: Acute . Albumin 3.0, nutrition supplements and supportive care Nutrition consult if needed --History of seizure disorder; Current Visit: No Status: chronic Seizure precautions, Ativan as needed Resume antiepileptic medications When accurate home medication list is available Cannot drive until cleared by neurology or PMD --Type II diabetes mellitus Current Visit: No Status: chronic Accu-Chek sliding scale coverage ADA diet Insulin as needed -- DVT prophylaxis Current Visit: No Status: Acute We will place patient on sequential compression device meanwhile. No pharmacologic anticoagulation in view of bleeding from AV fistula --Full code status Current Visit: No Status: Acute Patient is full code. DC planning per case management Subjective Date of service: 08/29/20 Principal diagnosis: Ac. Hypoxemic resp failure; Hemorrhagic shock; TRACEE; Malfunctioning AV graft Interval history: Brief history :74-year-old female patient with significant history of end-stage renal disease on hemodialysis was admitted with malfunctioning of AV fistula With bleeding, evaluated by vascular, patient underwent vascular procedure and resumed hemodialysis, patient also has seizures On antiepileptic medications, follow physical therapy occupational therapy, awaiting return to SNF /SNF placement I called patient's daughter Ms. Kerri Elias at [phone] and discussed in detail on 08/24/2020 Patient's condition, tests and reports consultants recommendation, and treatment plan. Patient had many questions, I answered all of them and encouraged her to call back if she has any new concerns ; Patient is receiving hemodialysis per schedule, stable to be transferred out of [facility] To the floor 08/26/2020; patient had brief seizure episode, patient is on seizure medications, Ativan as needed Will consult neurology if needed I spoke with Ms. Kerri Elias today when she came visiting her mother, patient's condition treatment And discharge planning, answered all her questions, verbalized understanding 08/27/2020 No seizures in the last 24 hours Waiting for SNF placement 08/28/2020 Waiting for placement 08/29/2020 Waiting for placement 08/30/2020 PT evaluation and recommendation, pending placement 08/31/2020; pending placement Follow PT evaluation and recommendations DC planning per case management 09/01/2020; awaiting placement COVID-19 - 08/24/2020 09/02/2020 patient is medically stable for discharge Awaiting placement History Interval history: I have seen and examined the patient at the bedside Patient's chart and medications reviewed And feels slightly better Awaiting placement No new complaints Hospitalist Physical - Constitutional Vitals: Temp Pulse Resp BP Pulse Ox 98.3 F 79 18 122/43 97 09/02/20 05:25 09/02/20 05:25 09/02/20 05:25 09/02/20 05:25 09/02/20 05:25 General appearance: Present: no acute distress, well-nourished, other (Frail and weak) - EENT Eyes: Present: PERRL, EOM intact - Neck Neck: Present: supple, normal ROM - Respiratory Respiratory effort: normal Respiratory: bilateral: diminished, negative: rales, rhonchi - Cardiovascular Rhythm: regular Heart Sounds: Present: S1 & S2 - Extremities Extremities: no ischemia, No edema - Abdominal General gastrointestinal: soft, non-tender, non-distended, normal bowel sounds - Integumentary Integumentary: Present: clear, warm - Psychiatric Psychiatric: appropriate mood/affect, cooperative - Neurologic Neurologic: moves all extremities, other (Residual weakness) Results - Labs CBC & Chem 7: 08/28/20 04:48 08/29/20 08:07 Labs: Laboratory Last Values WBC 10.2 K/mm3 (4.5-11.0) 08/28/20 04:48 RBC 3.22 M/mm3 (3.65-5.03) L 08/28/20 04:48 Hgb 9.8 gm/dl (10.1-14.3) L 08/28/20 04:48 Hct 29.2 % (30.3-42.9) L 08/28/20 04:48 MCV 91 fl (79-97) 08/28/20 04:48 MCH 30 pg (28-32) 08/28/20 04:48 MCHC 34 % (30-34) 08/28/20 04:48 RDW 18.0 % (13.2-15.2) H 08/28/20 04:48 Plt Count 251 K/mm3 (140-440) 08/28/20 04:48 Lymph % (Auto) 24.9 % (13.4-35.0) 08/28/20 04:48 [place] % (Auto) 12.7 % (0.0-7.3) H 08/28/20 04:48 Eos % (Auto) 0.3 % (0.0-4.3) 08/28/20 04:48 Baso % (Auto) 0.4 % (0.0-1.8) 08/28/20 04:48 Lymph # (Auto) 2.5 K/mm3 (1.2-5.4) 08/28/20 04:48 [place] # (Auto) 1.3 K/mm3 (0.0-0.8) H 08/28/20 04:48 Eos # (Auto) 0.0 K/mm3 (0.0-0.4) 08/28/20 04:48 Baso # (Auto) 0.0 K/mm3 (0.0-0.1) 08/28/20 04:48 Seg Neutrophils % 61.7 % (40.0-70.0) 08/28/20 04:48 Seg Neutrophils # 6.3 K/mm3 (1.8-7.7) 08/28/20 04:48 PT 18.9 Sec. (12.2-14.9) H 08/25/20 17:30 INR 1.52 (0.87-1.13) H 08/25/20 17:30 APTT 54.8 Sec. (24.2-36.6) H 08/23/20 23:18 Sodium 137 mmol/L (137-145) 08/29/20 08:07 Potassium 3.8 mmol/L (3.6-5.0) 08/29/20 08:07 Chloride 95.1 mmol/L (98-107) L 08/29/20 08:07 Carbon Dioxide 26 mmol/L (22-30) 08/29/20 08:07 Anion Gap 20 mmol/L 08/29/20 08:07 BUN 25 mg/dL (7-17) H 08/29/20 08:07 Creatinine 5.4 mg/dL (0.6-1.2) H 08/29/20 08:07 Estimated GFR 9 ml/min 08/29/20 08:07 BUN/Creatinine Ratio 5 % 08/29/20 08:07 Glucose 114 mg/dL (65-100) H 08/29/20 08:07 POC Glucose 119 mg/dL (70-105) H 09/02/20 07:20 Lactic Acid 1.60 mmol/L (0.7-2.0) 08/24/20 15:43 Calcium 7.2 mg/dL (8.4-10.2) L 08/29/20 08:07 Total Bilirubin 0.30 mg/dL (0.1-1.2) 08/28/20 04:48 AST 20 units/L (5-40) 08/28/20 04:48 ALT 7 units/L (7-56) 08/28/20 04:48 Alkaline Phosphatase 465 units/L (35-129) H 08/28/20 04:48 Total Protein 5.4 g/dL (6.3-8.2) L 08/28/20 04:48 Albumin 2.7 g/dL (3.9-5) L 08/28/20 04:48 Albumin/Globulin Ratio 1.0 % 08/28/20 04:48 Procalcitonin 28.55 ng/mL (<0.15) 08/24/20 15:43 Coronavirus (PCR) Negative (Negative) 08/24/20 Unknown Hepatitis A IgM Ab Non-reactive (NonReactive) 08/25/20 09:35 Hep Bs Antigen Non-reactive (Negative) 08/25/20 09:35 Hep B Core IgM Ab Non-reactive (NonReactive) 08/25/20 09:35 Hepatitis C Antibody Non-reactive (NonReactive) 08/25/20 09:35 Blood Type A POSITIVE 08/24/20 00:55 Antibody Screen Negative 08/24/20 00:55 Crossmatch See Detail 08/24/20 00:55 Mcdaniel/IV: Voiding Method External Female Catheter Active Medications - Current Medications Current Medications: Generic Name Dose Route Start Last Admin Trade Name Freq PRN Reason Stop Dose Admin Cinacalcet 30 mg 08/25/20 10:00 09/01/20 09:45 Cinacalcet 30 Mg Tab PO 30 mg DAILY RITESH Administration Colchicine 0.6 mg 08/24/20 16:27 Colchicine 0.6 Mg Tab PO Q12HR PRN Gout Dextrose 50 ml 08/24/20 01:20 09/01/20 08:01 Dextrose 50% In Water (25gm) 50 Ml Syringe IV 15 ml Q30MIN PRN Administration Hypoglycemia Protocol Diphenhydramine HCl 25 mg 08/27/20 17:25 08/27/20 23:03 Diphenhydramine 50 Mg/Ml Vial IV 25 mg Q6H PRN Administration Itching Ergocalciferol 50,000 unit 08/31/20 10:00 08/31/20 11:55 Ergocalciferol (Vit D2) 50,000 Unit Cap PO 50,000 unit We RITESH Administration Famotidine 20 mg 08/24/20 22:00 09/01/20 21:42 Famotidine 20 Mg Tab PO 20 mg QHS RITESH Administration Fluticasone Propionate 50 mcg 08/24/20 22:00 09/01/20 21:55 Fluticasone Propionate Nasal [place] 16 Gm NS 50 mcg BID RITESH Administration Heparin Sodium (Porcine) 2,000 unit 08/31/20 23:23 Heparin 10,000 Units/10 Ml Vial IV FAUSTINA PRN hemodialysis Hydromorphone HCl 0.25 mg 08/25/20 13:48 08/28/20 17:35 Hydromorphone 1 Mg/1 Ml Inj IV 0.25 mg Q6H PRN Administration Pain , Severe (7-10) Hydrophilic Ointment 1 applic 08/30/20 13:34 Lip Therapy Vaseline TP DIRECT PRN Dry Lips Sodium Chloride 100 mls @ 999 mls/hr 08/29/20 12:26 Nacl 0.9% IV FAUSTINA PRN Hypotension Insulin Human Lispro 0 unit 08/24/20 07:30 09/02/20 08:15 Insulin Lispro 100 Unit/Ml SUB-Q Not Given ACHS [facility] Protocol Lamotrigine 100 mg 08/24/20 22:00 09/01/20 21:42 Lamotrigine 100 Mg Tab PO 100 mg Q12HR RITESH Administration Lorazepam 2 mg 08/26/20 16:23 08/28/20 01:54 Lorazepam 2 Mg/Ml Vial IV 2 mg Q2H PRN Administration Seizures Midodrine 10 mg 08/24/20 15:49 09/01/20 18:33 Midodrine 5 Mg Tab PO Not Given TID@0800,1200,1600 RITESH Multivitamins/Minerals 1 each 08/25/20 10:00 09/01/20 09:45 Multivitamins,Ther W-Minerals Tab PO 1 each DAILY RITESH Administration Ondansetron HCl 4 mg 08/24/20 01:20 08/30/20 16:52 Ondansetron 4 Mg/2 Ml Inj IV 4 mg Q8H PRN Administration Nausea And Vomiting Oxycodone/Acetaminophen 1 tab 08/25/20 13:48 08/31/20 15:55 Oxycodone /Acetaminophen 5-325mg Tab PO 1 tab Q6H PRN Administration Pain, Moderate (4-6) Sevelamer Carbonate 800 mg 08/24/20 18:00 09/01/20 18:35 Sevelamer Carbonate 800 Mg Tab PO Not Given AC RITESH Sodium Chloride 10 ml 08/24/20 10:00 09/01/20 21:49 Sodium Chloride 0.9% 10 Ml Flush Syringe IV 10 ml BID RITESH Administration Sodium Chloride 10 ml 08/24/20 01:20 08/30/20 21:57 Sodium Chloride 0.9% 10 Ml Flush Syringe IV 10 ml PRN PRN Administration LINE FLUSH Nutrition/Malnutrition Assess - Dietary Evaluation Nutrition/Malnutrition Findings: Nutrition Notes Start: 08/24/20 12:47 Freq: Status: Active Protocol: Document 09/01/20 16:12 RALPH (Rec: 09/01/20 16:14 RALPH [id number]) Nutrition Notes Initial or Follow up Brief Note Subjective/Other Information 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 Pt awaiting placement. No PO intakes documented since last assessment. Nutrition Intervention Follow-Up By: 09/04/20 Additional Comments F/U: intakes, reassessment
[2020-09-02] MEDS: SEVELAMER CARBONATE 800 MG TAB PO SCH ×3 (11:15→18:13)
[2020-09-02] MEDS: MIDODRINE 5 MG TAB PO SCH ×3 (11:16→18:13)
[2020-09-02] MEDS: lamoTRIgine 100 MG TAB PO SCH ×2 (11:16→23:31)
[2020-09-02] MEDS: MULTIVITAMINS,THER W-MINERALS TAB PO SCH (11:16)
[2020-09-02] MEDS: CINACALCET 30 MG TAB PO SCH (11:16)
[2020-09-02] MEDS: FLUTICASONE PROPIONATE NASAL SPRAY 16 GM NS SCH (12:10)
--- NOTE | 2020-09-02 13:00 | Progress Note ---
Assessment and Plan Acute Hypoxemic respiratory failure Hemorrhagic shock ESRD on dialysis Malfunctioning right upper extremity AV graft DM II H/O pulmonary embolism Seizure disorder Dementia Obesity Anemia that is normocytic Coagulopathy Gout History of sleep apnea -Pain management- multimodal therapies. Limit narcotic analgesia - continue to titrate supplemental oxygen to maintain SpO2 89-92% -Supportive transfusions as clinically indicated to keep HgB >7g/dL - continue HD/UF for toxin and volume clearance, conservative volume management - continue Midodrine for hemodynamic support - continue accuchecks with glycemic control per SSI for target blood glucose of < 180 mg/dL; avoid hypoglycemia - continue Lamictal as AED - continue BIPAP scheduled qhs and prn during the day re: TERENCE - modified diet with aspiration precautions - prn bronchodilators with pulmonary hygiene per RT - avoid nephrotoxins, dose all medications for GFR and CrCL - continue to avoid benzodiazepine, reduce the possibility of delirium - prn analgesia per pain score - Maintenance of sleep-wake cycle, avoid delirium - VTE prophylaxis - PT/OT/ROM exercises - mobility , off loading, frequent turning for pressure ulcer prevention - Monitor hemodynamics closely - discharge planning ongoing concurrently Subjective Date of service: 09/02/20 Principal diagnosis: Ac. Hypoxemic resp failure; Hemorrhagic shock; TRACEE; Malfunctioning AV graft Interval history: Patient is seen today for: Acute Hypoxemic respiratory failure; Hemorrhagic shock; TRACEE on dialysis; Malfunctioning right upper extremity arteriovenous graft; DM II; H/O pulmonary embolism; TERENCE; Seizure disorder Seen and examined at bedside; 24hour events reviewed; nursing and respiratory care staff consulted; no adverse overnight events reported to me; resting in bed; complaining of right knee pain. No fevers, no nausea or vomiting. States she is compliant with BIPAP at night Objective Vital Signs - 12hr 09/02/20 09/02/20 09/02/20 05:25 08:24 12:35 Temperature 98.3 F 98.4 F Pulse Rate 79 92 H Respiratory 18 20 Rate Blood Pressure 118/57 Blood Pressure 122/43 [Left] O2 Sat by Pulse 97 97 100 Oximetry Constitutional: no acute distress, alert, appears uncomfortable Eyes: non-icteric ENT: oropharynx moist Neck: supple, no lymphadenopathy, no JVD, other (large neck) Effort: normal Ascultation: Bilateral: diminished breath sounds, rhonchi Percussion: Bilateral: not dull Cardiovascular: regular rate and rhythm, other (S1,S2) Gastrointestinal: normoactive bowel sounds, soft, non-tender, non-distended (protuberant) Integumentary: rash Extremities: no cyanosis, no edema, pulses normal, no ischemia or petechiae, other (Bilateral lower extemity splints) Neurologic: non-focal exam (grossly), pupils equal and round, CN II-XII normal, other (pedal contractures) Psychiatric: mood appropriate, affect normal, other (poor insight and judgment) CBC and BMP: 08/28/20 04:48 08/29/20 08:07 ABG, PT/INR, D-dimer: PT/INR, D-dimer PT 18.9 Sec. (12.2-14.9) H 08/25/20 17:30 INR 1.52 (0.87-1.13) H 08/25/20 17:30 Abnormal lab findings: Abnormal Labs 08/23/20 08/23/20 08/23/20 23:18 23:18 23:18 WBC RBC 3.29 L Hgb 9.1 L Hct 28.9 L RDW 18.8 H [place] % (Auto) 8.5 H [place] # (Auto) 0.9 H Seg Neutrophils % 71.7 H PT 22.8 H INR 1.97 H APTT 54.8 H Sodium 135 L Potassium Chloride 91.2 L Carbon Dioxide BUN Creatinine 3.4 H Glucose 156 H POC Glucose Calcium 7.9 L ALT < 5 L Alkaline Phosphatase 589 H Total Protein 5.3 L Albumin 3.0 L Crossmatch 08/24/20 08/24/20 08/24/20 00:55 07:29 07:47 WBC 11.7 H RBC Hgb Hct RDW 17.0 H [place] % (Auto) [place] # (Auto) Seg Neutrophils % PT INR APTT Sodium Potassium Chloride Carbon Dioxide BUN Creatinine Glucose POC Glucose 153 H Calcium ALT Alkaline Phosphatase Total Protein Albumin Crossmatch See Detail 08/24/20 08/24/20 08/24/20 07:47 14:15 17:30 WBC RBC Hgb Hct RDW [place] % (Auto) [place] # (Auto) Seg Neutrophils % PT INR APTT Sodium 133 L Potassium Chloride 96.6 L Carbon Dioxide 18 L BUN Creatinine 3.3 H Glucose 156 H POC Glucose 107 H 109 H Calcium 7.6 L ALT Alkaline Phosphatase Total Protein Albumin Crossmatch 08/24/20 08/25/20 08/25/20 21:13 07:52 09:35 WBC RBC Hgb Hct RDW [place] % (Auto) [place] # (Auto) Seg Neutrophils % PT INR APTT Sodium 136 L Potassium Chloride Carbon Dioxide BUN 22 H Creatinine 4.4 H Glucose 136 H POC Glucose 148 H 110 H Calcium 7.8 L ALT Alkaline Phosphatase Total Protein Albumin Crossmatch 08/25/20 08/25/20 08/25/20 11:55 17:29 17:30 WBC RBC 3.49 L Hgb Hct RDW 17.5 H [place] % (Auto) 11.0 H [place] # (Auto) 1.0 H Seg Neutrophils % 75.1 H PT INR APTT Sodium Potassium Chloride Carbon Dioxide BUN Creatinine Glucose POC Glucose 154 H 155 H Calcium ALT Alkaline Phosphatase Total Protein Albumin Crossmatch 08/25/20 08/26/20 08/26/20 17:30 11:29 15:02 WBC RBC Hgb Hct RDW [place] % (Auto) [place] # (Auto) Seg Neutrophils % PT 18.9 H INR 1.52 H APTT Sodium Potassium Chloride Carbon Dioxide BUN Creatinine Glucose POC Glucose 139 H 161 H Calcium ALT Alkaline Phosphatase Total Protein Albumin Crossmatch 08/26/20 08/27/20 08/27/20 21:28 08:34 11:54 WBC RBC Hgb Hct RDW [place] % (Auto) [place] # (Auto) Seg Neutrophils % PT INR APTT Sodium Potassium Chloride Carbon Dioxide BUN Creatinine Glucose POC Glucose 188 H 126 H 132 H Calcium ALT Alkaline Phosphatase Total Protein Albumin Crossmatch 08/27/20 08/27/20 08/28/20 17:31 20:51 04:48 WBC RBC 3.22 L Hgb 9.8 L Hct 29.2 L RDW 18.0 H [place] % (Auto) 12.7 H [place] # (Auto) 1.3 H Seg Neutrophils % PT INR APTT Sodium Potassium Chloride Carbon Dioxide BUN Creatinine Glucose POC Glucose 160 H 145 H Calcium ALT Alkaline Phosphatase Total Protein Albumin Crossmatch 08/28/20 08/28/20 08/28/20 04:48 11:24 15:32 WBC RBC Hgb Hct RDW [place] % (Auto) [place] # (Auto) Seg Neutrophils % PT INR APTT Sodium Potassium 3.5 L Chloride Carbon Dioxide BUN 21 H Creatinine 4.6 H Glucose 120 H POC Glucose 143 H 150 H Calcium 7.0 L ALT Alkaline Phosphatase 465 H Total Protein 5.4 L Albumin 2.7 L Crossmatch 08/28/20 08/29/20 08/29/20 21:18 08:07 12:39 WBC RBC Hgb Hct RDW [place] % (Auto) [place] # (Auto) Seg Neutrophils % PT INR APTT Sodium Potassium Chloride 95.1 L Carbon Dioxide BUN 25 H Creatinine 5.4 H Glucose 114 H POC Glucose 150 H 171 H Calcium 7.2 L ALT Alkaline Phosphatase Total Protein Albumin Crossmatch 08/29/20 08/30/20 08/30/20 21:12 07:35 11:07 WBC RBC Hgb Hct RDW [place] % (Auto) [place] # (Auto) Seg Neutrophils % PT INR APTT Sodium Potassium Chloride Carbon Dioxide BUN Creatinine Glucose POC Glucose 128 H 120 H 212 H Calcium ALT Alkaline Phosphatase Total Protein Albumin Crossmatch 08/30/20 08/30/20 08/31/20 16:39 21:06 07:57 WBC RBC Hgb Hct RDW [place] % (Auto) [place] # (Auto) Seg Neutrophils % PT INR APTT Sodium Potassium Chloride Carbon Dioxide BUN Creatinine Glucose POC Glucose 157 H 143 H 118 H Calcium ALT Alkaline Phosphatase Total Protein Albumin Crossmatch 08/31/20 08/31/20 08/31/20 12:28 17:21 20:50 WBC RBC Hgb Hct RDW [place] % (Auto) [place] # (Auto) Seg Neutrophils % PT INR APTT Sodium Potassium Chloride Carbon Dioxide BUN Creatinine Glucose POC Glucose 251 H 146 H 115 H Calcium ALT Alkaline Phosphatase Total Protein Albumin Crossmatch 09/01/20 09/01/20 09/01/20 07:41 10:56 16:31 WBC RBC Hgb Hct RDW [place] % (Auto) [place] # (Auto) Seg Neutrophils % PT INR APTT Sodium Potassium Chloride Carbon Dioxide BUN Creatinine Glucose POC Glucose 65 L 148 H 130 H Calcium ALT Alkaline Phosphatase Total Protein Albumin Crossmatch 09/01/20 09/02/20 09/02/20 23:07 07:20 11:45 WBC RBC Hgb Hct RDW [place] % (Auto) [place] # (Auto) Seg Neutrophils % PT INR APTT Sodium Potassium Chloride Carbon Dioxide BUN Creatinine Glucose POC Glucose 135 H 119 H 197 H Calcium ALT Alkaline Phosphatase Total Protein Albumin Crossmatch Chest x-ray: image reviewed Allied health notes reviewed: nursing
--- NOTE | 2020-09-02 13:45 | Progress Note ---
Assessment and Plan 1. ESRD: Patient is on maintenance hemodialysis three times a week, TTS schedule. Meds dosage based on GFR. Hemodialysis: 08/25, 08/29, 09/01. 2. FEN: Monitor lytes. 3. Anemia, POA: Monitor H/H. Epogen with HD as needed. 4. Malfunctioning AVG: Presented with bleeding AVG. S/p angioplasty. 5. Seizure disorder. 6. Type II DM: Accu-Chek sliding scale coverage ADA diet. 7. Hypotension: Midodrine. Subjective: Pt was seen and examined at the bedside. Examination: General appearance: well-developed, appears stated age, not in distress HEENT: [place], [place], hearing intact Neck: neck supple, trachea midline Respiratory: Clear to Auscultation Heart: regular, S1S2, no murmur Gastrointestinal: Soft, normoactive bowel sounds, obese Integumentary: no rash, warm and dry Neurologic: alert, confused Ext: b/l LE splint noted Hemodialysis access: R arm AVG Subjective Date of service: 09/02/20 Principal diagnosis: Ac. Hypoxemic resp failure; Hemorrhagic shock; TRACEE; Malfunctioning AV graft Objective - Vital Signs Vital signs: Vital Signs - 12hr 09/02/20 09/02/20 09/02/20 05:25 08:24 12:35 Temperature 98.3 F 98.4 F Pulse Rate 79 92 H Respiratory 18 20 Rate Blood Pressure 118/57 Blood Pressure 122/43 [Left] O2 Sat by Pulse 97 97 100 Oximetry - Lab 08/28/20 04:48 08/29/20 08:07 Most recent lab results Calcium 7.2 mg/dL (8.4-10.2) L 08/29/20 08:07 Medications & Allergies - Medications Allergies/Adverse Reactions: Allergies sulfacetamide [From Sulfamide] Allergy (Verified 03/06/17 00:22) Anaphylaxis Home Medications: Home Medications Medication Instructions Recorded Confirmed Last Taken Type Apixaban [Eliquis] 5 mg PO BID 03/05/17 08/24/20 Unknown History Colchicine [Colcrys] 0.6 mg PO Q12HR PRN 03/05/17 08/24/20 Unknown History Fluticasone [Flonase] 1 spray NS BID 03/05/17 08/24/20 Unknown History Pantoprazole [Protonix TAB] 20 mg PO QDAY 03/05/17 08/24/20 Unknown History sevelamer HCL [Renagel] 800 mg PO TIDWM 03/05/17 08/24/20 Unknown History Acetaminophen 650 mg PO Q6HR PRN 08/24/20 08/24/20 Unknown History Cholecalciferol (Vitamin D3) 50,000 unit PO 1XW 08/24/20 08/24/20 Unknown History Cinacalcet HCl [Sensipar] 30 mg PO DAILY 08/24/20 08/24/20 Unknown History DUONEB *Not for PRN Use* 1 neb INHALATION Q4H PRN 08/24/20 08/26/20 Unknown History Insulin Glargine,Hum.rec.anlog 10 units SUB-Q QHS 08/24/20 08/24/20 Unknown History [Semglee] Insulin Lispro [Admelog] See Protocol SQ ACHS 08/24/20 08/24/20 Unknown History Lidocaine [Lidoderm] 1 patch TD DAILY 08/24/20 08/26/20 Unknown History Multivitamin Tab W-MINERAL 1 each PO DAILY 08/24/20 08/24/20 Unknown History [Multiple Vitamin/Mineral (Theragran M)] Ramelteon [Rozerem] 8 mg PO QHS 08/24/20 08/24/20 Unknown History lamoTRIgine [LaMICtal] 100 mg PO Q12HR 08/24/20 08/24/20 Unknown History Midodrine [Proamatine] 10 mg PO TID@0800,1200,1600 tablet 09/02/20 Unknown Rx Petrolatum,White [Vaseline Lip 1 applic TP DIRECT PRN tube 09/02/20 Unknown Rx Therapy] Active Medications: Generic Name Dose Route Start Last Admin Trade Name Freq PRN Reason Stop Dose Admin Cinacalcet 30 mg 08/25/20 10:00 09/02/20 11:16 Cinacalcet 30 Mg Tab PO 30 mg DAILY RITESH Administration Colchicine 0.6 mg 08/24/20 16:27 Colchicine 0.6 Mg Tab PO Q12HR PRN Gout Dextrose 50 ml 08/24/20 01:20 09/01/20 08:01 Dextrose 50% In Water (25gm) 50 Ml Syringe IV 15 ml Q30MIN PRN Administration Hypoglycemia Protocol Diphenhydramine HCl 25 mg 08/27/20 17:25 08/27/20 23:03 Diphenhydramine 50 Mg/Ml Vial IV 25 mg Q6H PRN Administration Itching Ergocalciferol 50,000 unit 08/31/20 10:00 08/31/20 11:55 Ergocalciferol (Vit D2) 50,000 Unit Cap PO 50,000 unit We RITESH Administration Famotidine 20 mg 08/24/20 22:00 09/01/20 21:42 Famotidine 20 Mg Tab PO 20 mg QHS RITESH Administration Fluticasone Propionate 50 mcg 08/24/20 22:00 09/02/20 12:10 Fluticasone Propionate Nasal [place] 16 Gm NS 50 mcg BID RITESH Administration Heparin Sodium (Porcine) 2,000 unit 08/31/20 23:23 Heparin 10,000 Units/10 Ml Vial IV FAUSTINA PRN hemodialysis Hydromorphone HCl 0.25 mg 08/25/20 13:48 08/28/20 17:35 Hydromorphone 1 Mg/1 Ml Inj IV 0.25 mg Q6H PRN Administration Pain , Severe (7-10) Hydrophilic Ointment 1 applic 08/30/20 13:34 Lip Therapy Vaseline TP DIRECT PRN Dry Lips Sodium Chloride 100 mls @ 999 mls/hr 08/29/20 12:26 Nacl 0.9% IV FAUSTINA PRN Hypotension Insulin Human Lispro 0 unit 08/24/20 07:30 09/02/20 13:28 Insulin Lispro 100 Unit/Ml SUB-Q 2 unit ACHS RITESH Administration Protocol Lamotrigine 100 mg 08/24/20 22:00 09/02/20 11:16 Lamotrigine 100 Mg Tab PO 100 mg Q12HR RITESH Administration Lorazepam 2 mg 08/26/20 16:23 08/28/20 01:54 Lorazepam 2 Mg/Ml Vial IV 2 mg Q2H PRN Administration Seizures Midodrine 10 mg 08/24/20 15:49 09/02/20 13:29 Midodrine 5 Mg Tab PO 10 mg TID@0800,1200,1600 RITESH Administration Multivitamins/Minerals 1 each 08/25/20 10:00 09/02/20 11:16 Multivitamins,Ther W-Minerals Tab PO 1 each DAILY RITESH Administration Ondansetron HCl 4 mg 08/24/20 01:20 08/30/20 16:52 Ondansetron 4 Mg/2 Ml Inj IV 4 mg Q8H PRN Administration Nausea And Vomiting Oxycodone/Acetaminophen 1 tab 08/25/20 13:48 08/31/20 15:55 Oxycodone /Acetaminophen 5-325mg Tab PO 1 tab Q6H PRN Administration Pain, Moderate (4-6) Sevelamer Carbonate 800 mg 08/24/20 18:00 09/02/20 13:29 Sevelamer Carbonate 800 Mg Tab PO 800 mg AC RITESH Administration Sodium Chloride 10 ml 08/24/20 10:00 09/02/20 11:17 Sodium Chloride 0.9% 10 Ml Flush Syringe IV 10 ml BID RITESH Administration Sodium Chloride 10 ml 08/24/20 01:20 08/30/20 21:57 Sodium Chloride 0.9% 10 Ml Flush Syringe IV 10 ml PRN PRN Administration LINE FLUSH
--- NOTE | 2020-09-02 14:50 | Discharge Summary ---
Providers - Providers Date of Admission: 08/24/20 00:25 Date of discharge: 09/02/20 Attending physician: ANTONIO MURPHY 08/23/20 23:03 Consult to Physician [CONS] Stat Comment: Dr. Price spoke with Dr. Page @ [phone] Consulting Provider: INOCENCIA PAGE Physician Instructions: Reason For Exam: av fistula complication 08/24/20 01:20 Consult to Dietitian/Nutrition [CONS] Routine Physician Instructions: Reason For Exam: Reason for Consult: Diet education Consult to Physician [CONS] Routine Comment: dr. lopez o/ariel alfaro Consulting Provider: JOSUÉ CROOK Physician Instructions: Reason For Exam: ESRD ON DIALYSIS 08/24/20 03:44 Consult to Physician [CONS] Routine Comment: Consulting Provider: FIDEL MCFADDEN Physician Instructions: Reason For Exam: BLEEDING RT.ARM A-V FISTULA.HYPOTENSION 08/24/20 13:05 Consult to Wound/ET Nurse [CONS] Routine Reason For Exam: wound evaluation; sacral region 08/26/20 09:53 Physical Therapy Evaluation and Treat [CONS] Routine Comment: Reason For Exam: PT to evaluate gait, PT/OT notes needed. 08/27/20 18:14 Occupational Therapy Evaluate and Treat [CONS] Routine Comment: Reason For Exam: Debility Hospitalization Reason for admission: Bleeding from right upper arm AV fistula/malfunction AV fistula Condition: Fair Pertinent studies: Chest x-ray; no acute abnormality Procedures: s/p vascular procedure 08/24/2020 -Diagnostic Fistulogram with Central Venogram -Angioplasty and Stent of Right Arm AV Graft -Angioplasty and Stent of Right Subclavian Vein Hemodialysis per schedule Hospital course: 72-year-old -[place] female with known history of end-stage renal disease on dialysis, diabetes mellitus, pulmonary embolism, seizure disorder, GERD, dementia, major depressive disorder, gout, sleep apnea, lumbar radiculopathy, was admitted through emergency room with malfunctioning of AV fistula With bleeding from the fistula, patient was evaluated by vascular, underwent extensive vascular procedure, patient's Eliquis is held, evaluated by nephrology, received hemodialysis per schedule. Patient was also hypotensive requiring midodrine 10 mg 3 times a day with mild improvement of blood pressures Patient received physical therapy occupational therapy, blood sugars blood pressures closely monitored medications optimized Patient was evaluated by nephrology and pulmonary and adjusted the medications. Patient was evaluated by case management and physical therapy And was initially set up for SNF placement, however insurance did not approve the SNF placement. Case management has set up hospice per request by the daughter. Today patient is comfortable back to her baseline, very weak and frail, confused at times, almost bedbound Vital signs prior to discharge did not show any new changes Hemodynamically and clinically stable at discharge to home hospice. Plan of care reviewed with the patient nurse, case management and patient's family. Stable at discharge Discharge diagnosis -- Complication of AV fistula[bleeding] Current Visit: No Status: Acute/resolved Patient had sutures placed on the bleeding fistula. Vascular surgeon evaluated the patient s/p vascular procedure 08/24/2020 -Diagnostic Fistulogram with Central Venogram -Angioplasty and Stent of Right Arm AV Graft -Angioplasty and Stent of Right Subclavian Vein Functional, receiving HD per schedule --Hemorrhage from bleeding fistula/hypotension Current Visit: No Status: Acute Blood pressures are reasonable continue midodrine -- ESRD (end stage renal disease) on dialysis Current Visit: Yes Status: Acute Patient gets dialysis on Saturday and Saturdays. Hemodialysis per schedule. Nephrology following --History of pulmonary embolism; on Eliquis Current Visit: No Status: chronic Continue Eliquis supportive care --Moderate malnutrition; hypoalbuminemia Current Visit: Yes Status: Acute . Albumin 3.0, nutrition supplements and supportive care. Nutrition consult if needed --Dementia; Current Visit: No Status: chronic Continue supportive care --History of seizure disorder; Current Visit: No Status: chronic Seizure precautions, Ativan as needed Resume antiepileptic medications When accurate home medication list is available Cannot drive until cleared by neurology or PMD --Type II diabetes mellitus Current Visit: No Status: chronic Accu-Chek sliding scale coverage ADA diet Insulin as needed -- DVT prophylaxis Current Visit: No Status: Acute We will place patient on sequential compression device meanwhile. No pharmacologic anticoagulation in view of bleeding from AV fistula Stable at discharge Disposition: DC-50 TO HOSPICE (HOME) Final Discharge Diagnosis (Prints w/discharge instructions): Complications of AV fistula/repaired. Hemorrhage from AV fistula/resolved. Hypotension/improved. ESRD. On hemodialysis. History of seizures. Type 2 diabetes mellitus. Dementia. Moderate malnutrition. Hypoalbuminemia Time spent for discharge: 35 min Core Measure Documentation - Palliative Care Palliative Care/ Comfort Measures: Hospice Care - Core Measures Any of the following diagnoses?: none Exam - Constitutional Vitals: Temp Pulse Resp BP Pulse Ox 98.4 F 92 H 20 118/57 100 09/02/20 12:35 09/02/20 12:35 09/02/20 12:35 09/02/20 12:35 09/02/20 12:35 General appearance: Present: no acute distress, well-nourished - EENT Eyes: Present: PERRL, EOM intact - Neck Neck: Present: supple, normal ROM - Respiratory Respiratory effort: normal Respiratory: bilateral: diminished, negative: rales, rhonchi, wheezing - Cardiovascular Rhythm: regular Heart Sounds: Present: S1 & S2 - Extremities Extremities: no ischemia Extremity abnormal: edema - Abdominal General gastrointestinal: Present: soft, non-tender, non-distended, normal bowel sounds - Integumentary Integumentary: Present: clear, warm - Musculoskeletal Musculoskeletal: strength equal bilaterally, generalized weakness - Psychiatric Psychiatric: appropriate mood/affect, cooperative - Neurologic Neurologic: moves all extremities Plan Activity: advance as tolerated, fall precautions Diet: renal, advance as tolerated, other (Pured diet) Additional Instructions: Further management post hospice medical registrar. Follow primary care physician, nephrology, hemodialysis per schedule. Hemodialysis per schedule. If you have worsening symptoms contact MD or go to emergency room as needed. Fall precautions Follow up with: RUTH BECK LEANTHONY [Other] - 7 Days RICHARD MANCIA MD [Staff Physician] - 14 Days JOSUÉ CROOK MD [Staff Physician] - 7 Days Prescriptions: Cholecalciferol (Vitamin D3) 50,000 unit PO 1XW #4 Midodrine HCl 10 mg PO TID #90 tablet Famotidine [Pepcid] 20 mg PO QHS #30 tablet Ergocalciferol [Vitamin D2] 50,000 unit PO We #4 capsule
[2020-09-03 00:13] VITALS: BP 152/52
== END 2020-09-03 00:26 | disposition hospice, home (50) | DRG 252 ==
LOC: ED 22:35 → CC1 08-24 00:25 → 4A 08-26 00:15 → 3A 08-28 17:33
PROVIDERS: ADMIT Internal Medicine Geriatric Medicine; ATTEND Internal Medicine
PROC: 037Y3DZ Dilation of Upper Artery with Intraluminal Device, Percutaneous Approach (ICD-10-PCS; principal; 2020-08-24)
PROC: 05753DZ Dilation of Right Subclavian Vein with Intraluminal Device, Percutaneous Approach (ICD-10-PCS; 2020-08-24)
PROC: B51W1ZZ Fluoroscopy of Dialysis Shunt/Fistula using Low Osmolar Contrast (ICD-10-PCS; 2020-08-24)
PROC: 30233N1 Transfusion of Nonautologous Red Blood Cells into Peripheral Vein, Percutaneous Approach (ICD-10-PCS; 2020-08-24)
PROC: 5A1D70Z Performance of Urinary Filtration, Intermittent, Less than 6 Hours Per Day (ICD-10-PCS; 2020-08-25)
PROC: 5A09357 Assistance with Respiratory Ventilation, Less than 24 Consecutive Hours, Continuous Positive Airway Pressure (ICD-10-PCS; 2020-08-28)
PROC: 5A1D70Z Performance of Urinary Filtration, Intermittent, Less than 6 Hours Per Day (ICD-10-PCS; 2020-08-29)
PROC: 5A09357 Assistance with Respiratory Ventilation, Less than 24 Consecutive Hours, Continuous Positive Airway Pressure (ICD-10-PCS; 2020-08-31)
PROC: 5A1D70Z Performance of Urinary Filtration, Intermittent, Less than 6 Hours Per Day (ICD-10-PCS; 2020-09-01)
PROC: 5A09357 Assistance with Respiratory Ventilation, Less than 24 Consecutive Hours, Continuous Positive Airway Pressure (ICD-10-PCS; 2020-09-02)
DX: T82.898A Other specified complication of vascular prosthetic devices, implants and grafts, initial encounter (principal); R57.8 Other shock; N18.6 End stage renal disease; J96.01 Acute respiratory failure with hypoxia; E44.0 Moderate protein-calorie malnutrition; N25.81 Secondary hyperparathyroidism of renal origin; D68.9 Coagulation defect, unspecified; Z20.822 Contact with and (suspected) exposure to COVID-19; E88.09 Other disorders of plasma-protein metabolism, not elsewhere classified; I95.9 Hypotension, unspecified; D64.9 Anemia, unspecified; K21.9 Gastro-esophageal reflux disease without esophagitis; E11.22 Type 2 diabetes mellitus with diabetic chronic kidney disease; E66.9 Obesity, unspecified; F32.9 Major depressive disorder, single episode, unspecified; Z96.649 Presence of unspecified artificial hip joint; M19.90 Unspecified osteoarthritis, unspecified site; E11.40 Type 2 diabetes mellitus with diabetic neuropathy, unspecified; F03.90 Unspecified dementia, unspecified severity, without behavioral disturbance, psychotic disturbance, mood disturbance, and anxiety; G47.30 Sleep apnea, unspecified; G40.909 Epilepsy, unspecified, not intractable, without status epilepticus; M10.9 Gout, unspecified; M54.16 Radiculopathy, lumbar region; Z79.899 Other long term (current) drug therapy; Z68.29 Body mass index [BMI] 29.0-29.9, adult; Z99.2 Dependence on renal dialysis; Z86.711 Personal history of pulmonary embolism; Z79.01 Long term (current) use of anticoagulants; Z79.891 Long term (current) use of opiate analgesic; Z88.2 Allergy status to sulfonamides; Z68.38 Body mass index [BMI] 38.0-38.9, adult
CPT/HCPCS: 36415; 36903; 71045; 80048; 80053; 80074; 82140; 82962; 84145; 85025; 85610; 85730; 86850; 86900; 86901; 86920; 94660; G0378; C1725; C1751; C1769; C1874; C1876; C1894; J1170; J1200; J1644; J1815; J2060; J2250; J2270; J2405; J3010; J7040; P9016; Q9967; U0003